=== PATIENT | female | born 1940 | race Caucasian/White ===

== ENCOUNTER 2020-05-20 12:16 | Outpatient (REF) | payer MEDICARE, SELFPAY ==
[2020-05-20 14:16] LABS: Hematocrit 42.6 % (37-47); Hemoglobin 14.2 g/dl (12.0-16.0); Mean Corpuscular HGB Conc 33.3 g/dl (31.0-35.0); Mean Corpuscular Hemoglobin 30.7 pg (27.0-33.0); Mean Corpuscular Volume 92.2 fL (80-98); Mean Platelet Volume 10.9 fL (9.4-12.3); Platelet Count 297 X10*3/uL (160-400); Red Blood Count 4.62 X10*6/uL (4.20-5.50); Red Cell Distribution Width 12.5 % (11.0-16.0); White Blood Count 8.2 X10*3/uL (4.8-10.8)
[2020-05-20 14:49] LABS: Anion Gap 12 (12-20); Blood Urea Nitrogen 14 mg/dL (9-16); Carbon Dioxide 28 mmol/L (22-29); Chloride 104 mmol/L (96-108); Estimated Glomerular Filt Rate > 60; Glucose Random 77 mg/dL (60-115); Potassium 4.2 mmol/l (3.3-5.1); Sodium 140 mmol/L (135-145)
== END 2020-05-20 12:17 | disposition home or self-care (01) ==
LOC: HO.LAB 12:16
PROVIDERS: PCP Internal Medicine; Referring Provider Internal Medicine; Visit Provider Internal Medicine Cardiovascular Disease
DX: I48.0 Paroxysmal atrial fibrillation (principal); I50.30 Unspecified diastolic (congestive) heart failure; Z95.0 Presence of cardiac pacemaker
CPT/HCPCS: 36415; 80048; 85027; 93005; 99212

== ENCOUNTER → 2020-11-06 13:13 | Outpatient (REF) | payer MEDICARE, SELFPAY ==
--- NOTE | 2020-11-06 13:16 | CA_ITS ---
Transthoracic Echocardiogram Patient (Last, First, Middle): Jessenia Pisano M Gender: Female Date of : 1940 Age: 80 Procedure Date: 11/06/2020 Procedure Type: Transthoracic Echocardiogram Location: OP Height: 165.1 cm Weight: 86.18 kg BSA: 1.94 m2 Heart Rate: bpm BP: 140 / 70 mmHg Radiologic Technologist Chief: EUGENIO Referring MD: Aman Avalos MD [employer] Concrete Ironworker: Aman Avalos MD Symptoms: I50.30 - Unspecified diastolic (congestive) heart failure Study Quality: Fair ECG Rhythm: Ventriculary paced rhythm Conclusions: - 1. Normal LV systolic function with impaired relaxation filling pattern 2. Mildly dilated left atrium 3. Fibrocalcific aortic valve changes noted with normal cardiac valvular Doppler 4. Normal RV systolic pressure 5. No pericardial effusion Findings Left Ventricle Normal left ventricular size, thickness, and systolic function. The visually estimated ejection fraction is between 55-60%. Regional wall motion abnormalities can not be excluded due to suboptimal endocardial definition. There is paradoxical septal motion consistent with a right ventricular pacemaker. Spectral Doppler is indicative of an impaired relaxation filling pattern. E/E prime ratio is between 8 and 15 consistent with indeterminate filling pressures. Right Ventricle Normal right ventricular cavity size and systolic function. There is a pacemaker wire seen in the right ventricle. Atria The left atrium is mildly dilated. The right atrium is normal in size. A pacemaker wire is identified in the right atrium. Aortic Valve There is mild calcification of the aortic valve. There is mild thickening of the aortic valve. There is no aortic valve stenosis. There is no aortic valve regurgitation. Mitral Valve There is mild anterior mitral leaflet thickening. There is mild mitral annular calcification. There is trace mitral valve regurgitation. There is no mitral valve stenosis. Pulmonic Valve The pulmonic valve was not well visualized. Tricuspid Valve Likely normal tricuspid valve structure and function. There is mild tricuspid valve regurgitation. The right ventricular systolic pressure is normal. The right ventricular systolic pressure is 27 mmHg. Normal right atrial pressure. There is no evidence of pulmonary hypertension. Great Vessels All visible segments of the aorta are normal in size. The pulmonary artery was not well visualized. Venous The inferior vena cava is normal in size and collapses greater than 50% with inspiration. Pericardium/Pleural There is no evidence of pericardial effusion. Prior Study Comparison Changes noted compared to prior study dated: 11/05/2019. RV systolic pressure is normal on this study Measurements 2D Linear Measurements IVSd: 1.19 0.6-0.9/0.6-1.0 cm LVIDd: 5.24 3.9-5.3/4.2-5.9 cm LVIDd Index: 2.70 2.4-3.2/2.2-3.1 cm/m2 LVIDs: 3.51 2.0-3.6 cm LVPWd: 0.94 0.7-1.1 cm Ao Root: 2.50 2.1-3.5 cm LA Diam: 3.80 2.7-3.8/3.0-4.0 cm LAIDs Index: 1.96 1.5-2.3 cm/m2 LV Mass: 267.03 67-162/88-224 g LV Mass Index: 137.65 43-95/49-115 g/m2 LVOT Diam: 1.90 3.0+(-)1.3 cm 2D Systolic Function EF 4C: 59.70 >55% Mitral Valve MV Pk E: 0.81 MV PK A: 0.90 MV Decel Time: 200.00 E/A: 0.90 E'Lateral: 5.98 E'Medial: 6.20 E/E' Med: 13.10 E/E' Lat: 13.60 PHT: 59.00 MVA PHT: 3.73 Decel Cidra: 4.08 Aortic Valve AoV Pk Emery: 1.78 AoV Mn Emery: 1.23 AoV VTI: 0.39 AoV Pk Grad: 13.00 Aov Mn Grad: 7.00 JERAMIE Cont.VTI: 2.22 LVOT LVOT Pk Emery: 1.29 LVOT Mn Emery: 0.92 LVOT VTI: 0.31 LVOT Pk Grad: 7.00 LVOT Mn Grad: 4.00 LVOT Diam: 1.90 LVOT Area: 2.84 Diastolic Function MV Pk E: 0.81 MV Pk A: 0.90 E/A: 0.90 E'Medial: 6.20 E/E' Med: 13.10 E' Laterial: 5.98 E/E' Lat: 13.60 Tricuspid Valve TR Pk Emery: 2.47 TR Pk Grad: 24.00 RA Press: 3.00 RVSP: 27.00 Great Vessels Aorta Ao Root-2D: 2.50 2.0-3.7 cm Ao Asc: 3.00 2.1-3.4 cm Updated in Other Vendor System with Status of Final Aman Avalos MD electronically signed on 11/07/2020 8:48:06 AM with status of Final
== END ==
LOC: HO.CARD 13:13
PROVIDERS: PCP Internal Medicine; Visit Provider Internal Medicine Cardiovascular Disease
DX: I48.0 Paroxysmal atrial fibrillation (principal); I11.0 Hypertensive heart disease with heart failure; I50.30 Unspecified diastolic (congestive) heart failure; Z95.0 Presence of cardiac pacemaker
CPT/HCPCS: 93306

== ENCOUNTER 2021-12-08 12:34 | Outpatient (REF) | payer MEDICARE, MEDICAID, SELFPAY ==
[2021-12-08 14:45] LABS: Hematocrit 41.9 % (37.0-47.0); Hemoglobin 13.8 g/dl (12.0-16.0); Mean Corpuscular HGB Conc 32.9 g/dl (31.0-35.0); Mean Corpuscular Hemoglobin 30.2 pg (27.0-33.0); Mean Corpuscular Volume 91.7 fL (80.0-98.0); Mean Platelet Volume 10.7 fL (9.4-12.3); Platelet Count 270 X10*3/uL (160-400); Red Blood Count 4.57 X10*6/uL (4.20-5.50); Red Cell Distribution Width 12.7 % (11.0-16.0); White Blood Count 8.3 X10*3/uL (4.8-10.8)
[2021-12-08 15:05] LABS: Anion Gap 14 (12-20); Blood Urea Nitrogen 14 mg/dL (9-16); Carbon Dioxide 24 mmol/L (22-29); Chloride 104 mmol/L (96-108); Estimated Glomerular Filt Rate > 60; Glucose Random 95 mg/dL (60-115); Potassium 4.4 mmol/L (3.3-5.1); Sodium 138 mmol/L (135-145)
== END 2021-12-08 12:35 | disposition home or self-care (01) ==
LOC: HO.LAB 12:34
PROVIDERS: PCP Internal Medicine; Referring Provider Internal Medicine; Visit Provider Internal Medicine Cardiovascular Disease
DX: I48.0 Paroxysmal atrial fibrillation (principal); R07.2 Precordial pain; I50.30 Unspecified diastolic (congestive) heart failure; Z95.0 Presence of cardiac pacemaker
CPT/HCPCS: 36415; 80048; 85027; 93005; 93280; 99212

== ENCOUNTER 2022-10-27 10:03 | Outpatient (REF) | payer MEDICARE, MEDICAID, SELFPAY ==
[2022-10-27 11:33] LABS: Mean Corpuscular HGB Conc 33.3 g/dl (31.0-35.0); Mean Corpuscular Hemoglobin 29.9 pg (27.0-33.0); Mean Corpuscular Volume 89.6 fL (80.0-98.0); Mean Platelet Volume 10.4 fL (9.4-12.3); Platelet Count 250 X10*3/uL (160-400); Red Blood Count 4.69 X10*6/uL (4.20-5.50); Red Cell Distribution Width 12.5 % (11.0-16.0); White Blood Count 7.5 X10*3/uL (4.8-10.8)
[2022-10-27 12:39] LABS: Anion Gap 13 (12-20); Blood Urea Nitrogen 11 mg/dL (9-16); Calcium 9.6 mg/dL (8.4-10.2); Carbon Dioxide 25 mmol/L (22-29); Chloride 105 mmol/L (96-108); Estimated Glomerular Filt Rate > 60; Glucose Random 117 mg/dL (60-115); Potassium 4.2 mmol/L (3.3-5.1); Sodium 139 mmol/L (135-145)
== END 2022-10-27 10:04 | disposition home or self-care (01) ==
LOC: HO.LAB 10:03
PROVIDERS: PCP Family Medicine; Referring Provider Family Medicine; Visit Provider Internal Medicine Cardiovascular Disease
DX: I48.0 Paroxysmal atrial fibrillation (principal); I50.30 Unspecified diastolic (congestive) heart failure; Z45.018 Encounter for adjustment and management of other part of cardiac pacemaker; Z79.899 Other long term (current) drug therapy
CPT/HCPCS: 36415; 80048; 85027; 93005; 93280; 99212

== ENCOUNTER → 2022-12-08 23:59 | Outpatient (BNV) | payer MEDICARE, MEDICAID, SELFPAY ==
--- NOTE | 2022-12-14 11:19 | MHC.OFFVIS ---
Intake Intake Visit Reasons: Remote Device Check- [facility] [place] Allergies Penicillins [PENICILLINS] Allergy (Mild, Verified 10/27/22 10:16) RASH PFS Medical History (HFpEF) heart failure with preserved ejection fraction Cardiac pacemaker in situ Complete heart block HTN (hypertension) Paroxysmal atrial fibrillation Surgical History Hx of angioplasty Hx of colonoscopy Hx of discectomy Hx of hysterectomy Family History Father CHF (congestive heart failure) CVD (cardiovascular disease) Mother CVD (cardiovascular disease) Stroke Alzheimer disease Son CVD (cardiovascular disease) HTN (hypertension) Social History Alcohol intake: never Patient Tobacco Use Status: Never used Tobacco Office Procedures Cardiac Device Check Cardiac Device Check Details: Remote pacemaker report generated 12/13/2022. Pacemaker function is adequate. Patient ventricularly pacer dependent [id number] Cardiac Device Interrogation, pacemaker Procedure code (CPT) selection complete Coding Level of Care Code Procedure Only Diagnoses CPT Codes Cardiac Device Check - Cardiac Device 12: [id number] Cardiac Device Interrogation, pacemaker ([id number])
== END ==
PROVIDERS: PCP Family Medicine; Visit Provider Internal Medicine Cardiovascular Disease
DX: I48.0 Paroxysmal atrial fibrillation (principal); Z95.0 Presence of cardiac pacemaker
CPT/HCPCS: 93294

== ENCOUNTER → 2023-01-10 12:19 | Outpatient (REF) | payer MEDICARE, MEDICAID, SELFPAY ==
--- NOTE | 2023-01-10 12:24 | CA_ITS ---
Transthoracic Echocardiogram Patient (Last, First, Middle): Jessenia Pisano M Gender: Female Date of : 1940 Age: 82 Procedure Date: 01/10/2023 Procedure Type: Transthoracic Echocardiogram Location: OP Height: 160.02 cm Weight: 88. kg BSA: 1.91 m2 Heart Rate: bpm BP: 134 / 75 mmHg Plant Associate: SRI Referring MD: Aman Avalos MD Symptoms: I50.30 - Unspecified diastolic (congestive) heart failure Study Quality: Adequate ECG Rhythm: Sinus Conclusions: - The left ventricular systolic function is normal. The calculated ejection fraction is 57% by biplane method. - There is mild calcification of the aortic valve. - There is mild mitral annular calcification. - No obvious valvular pathology seen on this study. Findings Left Ventricle Normal left ventricular cavity size. There is mildly increased left ventricular wall thickness. The left ventricular systolic function is normal. The calculated ejection fraction is 57% by biplane method. There is no evidence of regional wall motion abnormalities. Evidence suggests grade I (mild) diastolic dysfunction. Right Ventricle Normal right ventricular cavity size and systolic function. There is a pacemaker wire seen in the right ventricle. Atria Both atria are normal in size. Aortic Valve There is mild calcification of the aortic valve. There is no aortic valve regurgitation. No significant aortic stenosis. Mitral Valve There is mild mitral annular calcification. There is trace mitral valve regurgitation. There is no mitral valve stenosis. Pulmonic Valve The pulmonic valve is likely normal. Tricuspid Valve There is mild tricuspid valve regurgitation. There is no evidence of pulmonary hypertension. Great Vessels The asc aorta is normal in size. Venous The inferior vena cava is normal in size and collapses greater than 50% with inspiration. Pericardium/Pleural There is no evidence of pericardial effusion. Prior Study Comparison No significant change compared to prior study dated: 11/06/2020. Recommendations, Care & Conclusions No obvious valvular pathology seen on this study. Measurements 2D Linear Measurements IVSd: 1.05 0.6-0.9/0.6-1.0 cm LVIDd: 4.67 3.9-5.3/4.2-5.9 cm LVIDd Index: 2.45 2.4-3.2/2.2-3.1 cm/m2 LVIDs: 3.25 2.0-3.6 cm LVPWd: 1.04 0.7-1.1 cm LA Diam: 3.50 2.7-3.8/3.0-4.0 cm LAIDs Index: 1.83 1.5-2.3 cm/m2 LV Mass: 215.35 67-162/88-224 g LV Mass Index: 112.75 43-95/49-115 g/m2 LVOT Diam: 1.80 3.0+(-)1.3 cm 2D Systolic Function EF 4C: 58.10 >55% EF 2C: 59.00 >55% EF BiP: 56.80 >55% Mitral Valve MV Pk E: 0.82 MV PK A: 0.89 MV Decel Time: 243.00 E/A: 0.90 E'Lateral: 6.42 E'Medial: 4.57 E/E' Med: 17.90 E/E' Lat: 12.70 PHT: 71.00 MVA PHT: 3.10 Decel [place]: 3.37 Aortic Valve AoV Pk Emery: 1.70 AoV Mn Emery: 1.14 AoV VTI: 0.40 AoV Pk Grad: 12.00 Aov Mn Grad: 6.00 JERAMIE Cont.VTI: 1.80 LVOT LVOT Pk Emery: 1.12 LVOT Mn Emery: 0.79 LVOT VTI: 0.28 LVOT Pk Grad: 5.00 LVOT Mn Grad: 3.00 LVOT Diam: 1.80 LVOT Area: 2.54 Diastolic Function MV Pk E: 0.82 MV Pk A: 0.89 E/A: 0.90 E'Medial: 4.57 E/E' Med: 17.90 E' Laterial: 6.42 E/E' Lat: 12.70 Right Ventricle TAPSE (mm): 19.40 TVS' Emery: 9.36 Tricuspid Valve TR Pk Emery: 2.69 TR Pk Grad: 29.00 RA Press: 3.00 RVSP: 32.00 Great Vessels Aorta Sinus of Valsalva: 2.80 2.0-3.5 cm Ao Asc: 3.40 2.1-3.4 cm Updated in Other Vendor System with Status of Final Crispin Dawn MD electronically signed on 01/10/2023 3:59:05 PM with status of Final
== END ==
LOC: HO.CARD 12:19
PROVIDERS: PCP Family Medicine; Visit Provider Internal Medicine Cardiovascular Disease
DX: I50.30 Unspecified diastolic (congestive) heart failure (principal)
CPT/HCPCS: 93306

== ENCOUNTER → 2023-01-10 12:24 | Outpatient (BNV) | payer MEDICARE, MEDICAID, SELFPAY | PROVIDERS: PCP Family Medicine; Visit Provider Internal Medicine | DX: I34.81 Nonrheumatic mitral (valve) annulus calcification (principal); I35.8 Other nonrheumatic aortic valve disorders | CPT/HCPCS: 93306 ==

== ENCOUNTER → 2023-03-09 23:59 | Outpatient (BNV) | payer MEDICARE, MEDICAID, SELFPAY ==
--- NOTE | 2023-03-28 08:48 | MHC.OFFVIS ---
Intake Intake Visit Reasons: Remote Device Check- [facility] Allergies Penicillins [PENICILLINS] Allergy (Mild, Verified 10/27/22 10:16) RASH PFS Medical History (HFpEF) heart failure with preserved ejection fraction Cardiac pacemaker in situ Complete heart block HTN (hypertension) Paroxysmal atrial fibrillation Surgical History Hx of angioplasty Hx of colonoscopy Hx of discectomy Hx of hysterectomy Family History Father CHF (congestive heart failure) CVD (cardiovascular disease) Mother CVD (cardiovascular disease) Stroke Alzheimer disease Son CVD (cardiovascular disease) HTN (hypertension) Social History Alcohol intake: never Patient Tobacco Use Status: Never used Tobacco Office Procedures Cardiac Device Check Cardiac Device Check Details: Remote pacemaker report generated 03/09/2023. Pacemaker function is adequate. Patient ventricularly pacer dependent [id number] Cardiac Device Interrogation, pacemaker Procedure code (CPT) selection complete Coding Level of Care Code Procedure Only CPT Codes Cardiac Device Check - Cardiac Device 12: [id number] Cardiac Device Interrogation, pacemaker ([id number])
== END ==
PROVIDERS: PCP Family Medicine; Visit Provider Internal Medicine Cardiovascular Disease
DX: I44.2 Atrioventricular block, complete (principal); Z95.0 Presence of cardiac pacemaker
CPT/HCPCS: 93294

== ENCOUNTER → 2023-06-08 23:59 | Outpatient (BNV) | payer MEDICARE, MEDICAID, SELFPAY ==
--- NOTE | 2023-06-08 09:53 | MHC.OFFVIS ---
Intake Intake Visit Reasons: Remote Device Check- [facility] Allergies Penicillins [PENICILLINS] Allergy (Mild, Verified 10/27/22 10:16) RASH PFSH Medical History (HFpEF) heart failure with preserved ejection fraction Cardiac pacemaker in situ Complete heart block HTN (hypertension) Paroxysmal atrial fibrillation Surgical History Hx of angioplasty Hx of colonoscopy Hx of discectomy Hx of hysterectomy Family History Father CHF (congestive heart failure) CVD (cardiovascular disease) Mother CVD (cardiovascular disease) Stroke Alzheimer disease Son CVD (cardiovascular disease) HTN (hypertension) Social History Alcohol intake: never Patient Tobacco Use Status: Never used Tobacco Office Procedures Cardiac Device Check Cardiac Device Check Details: Remote pacemaker report generated 06/08/2022. Pacemaker function is adequate. Patient pacer dependent in the ventricle. No episodes of atrial fibrillation [id number] Cardiac Device Interrogation, pacemaker Procedure code (CPT) selection complete Assessment & Plan Assessment & Plan (1) Cardiac pacemaker in situ: Comment: Dual-chamber [place] Code(s): Z95.0 - Presence of cardiac pacemaker Plan: See above Coding Level of Care Code Procedure Only Diagnoses Cardiac pacemaker in situ Z95.0 CPT Codes Cardiac Device Check - Cardiac Device 12: [id number] Cardiac Device Interrogation, pacemaker ([id number])
== END ==
PROVIDERS: PCP Family Medicine; Visit Provider Internal Medicine Cardiovascular Disease
DX: I48.0 Paroxysmal atrial fibrillation (principal); Z95.0 Presence of cardiac pacemaker
CPT/HCPCS: 93294

== ENCOUNTER 2023-08-25 13:24 | Outpatient (AMB) | payer MEDICARE, MEDICAID, SELFPAY ==
[2023-08-25 13:49] VITALS: BP 136/80; PULSE 65; BMI 32.3
--- NOTE | 2023-08-25 13:49 | A.OFFVIS_ITS ---
Intake Vital Signs 08/25/23 13:49 Height 5 ft 5 in Weight 194 lb 0.108 oz BMI 32.3 BP 136/80 Blood Pressure Location Lt brachial Position Sitting Pulse 65 Intake Visit Reasons: RS/ 6 month f/u Intake Note: 6 month follow-up with [facility] check feeling good Staff Psychologist Required: No Allergies Penicillins [PENICILLINS] Allergy (Mild, Verified 10/27/22 10:16) RASH Medication List - Last Reconciled 08/25/23 by Aman Avalos MD atorvastatin 20 mg PO DAILY clotrimazole 1% appl topical BID diazepam 2.5 mg PO BID PRN diltiazem HCl ER (DILT-XR) 180 mg PO DAILY doxepin 10 mg PO BEDTIME flunisolide 2 sprays intranasal BID furosemide 40 mg PO BID gabapentin 300 mg PO BEDTIME hydrocortisone 2.5% appl topical 2XW ipratropium bromide 2 sprays intranasal Q12H ketoconazole 2% appl topical DAILY latanoprost 0.005% 1 drp ophthalmic (eye) BEDTIME lisinopril 5 mg PO DAILY paroxetine HCl 10 mg PO DAILY Pradaxa (dabigatran etexilate) 150 mg PO BID NS sodium chloride-aloe vera 1 ea intranasal BEDTIME sotalol (Sotalol AF) 80 mg PO BID tretinoin 0.025% appl topical BEDTIME HPI HPI Comments History of Present Illness Details Jessenia comes for follow-up for atrial fibrillation heart failure. She has been doing well from cardiac perspective. She was not able to make to the office visit recently due to ride issues. Now she has bought her own car. She is functional. She lives alone and is able to manage her day-to-day activity. Denies any prolonged palpitation irregular heartbeat. Denies any worsening heart failure symptoms with no symptoms of shortness of breath, orthopnea, PND, leg edema. No bleeding issues or neurologic events. No lightheadedness, syncope. [facility] Medical History (HFpEF) heart failure with preserved ejection fraction HTN (hypertension) Cardiac pacemaker in situ Paroxysmal atrial fibrillation Complete heart block Surgical History Hx of discectomy Hx of angioplasty Hx of hysterectomy Hx of colonoscopy Family History Father CHF (congestive heart failure) CVD (cardiovascular disease) Mother CVD (cardiovascular disease) Stroke Alzheimer disease Son CVD (cardiovascular disease) HTN (hypertension) Social History Alcohol intake: never Patient Tobacco Use Status: Never used Tobacco Review of Systems Const Denies chills, Denies fatigue, Denies fever(s), Denies frequent falls, Denies weakness, Denies weight gain and Denies weight loss ENT Denies dizziness Card Denies chest pain, Denies leg edema, Denies lightheadedness, Denies palpitations, Denies dyspnea, Denies dyspnea on exertion, Denies orthopnea and Denies other (loss of consciousness) Resp Denies cough, Denies dyspnea and Denies dyspnea on exertion GI Denies hematochezia and Denies change in stool character Musc Denies abnormal gait, Denies muscle weakness, Denies numbness, Denies radiating pain into limb and Denies tingling Neuro Denies abnormal gait, Denies dizziness, Denies frequent falls, Denies numbness, Denies tingling and Denies weakness Endo Denies fatigue and Denies palpitations Physical Exam Vital Signs: Last Vital Signs Pulse 65 08/25/23 13:49 BP 136/80 08/25/23 13:49 BMI result Body Mass Index 32.3 Const General: cooperative, comfortable, no acute distress, alert and awake Nutritional Appearance: obese Orientation/consciousness: patient oriented x3 Limitations: no limitations HEENT Head: Yes normal to inspection, Yes normocephalic and Yes atraumatic Eyes General: appearance normal, both eyes and all related structures Neck Neck: Yes trachea midline, Yes supple and Yes no JVD Chest Chest palpation & inspection: normal inspection of the chest Resp Effort & Inspection: normal respiratory effort Auscultation: clear to auscultation bilaterally Cardio Jugular venous distension: no JVD Palpation: normal PMI Rate: regular rate Rhythm: regular rhythm Heart sounds: S1 normal heart sound present, S2 normal heart sound present and Other heart sounds present (S4) GI Auscultation: normal bowel sounds Skin General skin exam: no rashes or lesions noted and ecchymosis Neuro General: patient oriented x3 and no focal motor deficits Extrem General: Yes no clubbing, cyanosis or edema Psych Appearance: grossly normal Office Procedures Cardiac Device Check Cardiac Device Check Details: Dual-chamber [place] pacemaker in place. Programmed in DDDR at 60 beats per minute. Battery life is at about 2 and half years. No episodes of atrial fibrillation noted. Atrial ventricular capture thresholds excellent. Atrial ventricular sensing is excellent. Pacing lead impedance is stable. [id number] Cardiac Device Check, pacemaker dual lead Procedure code (CPT) selection complete EKG Details: EKG shows atrially sensed, ventricularly paced rhythm [id number], Complete Assessment & Plan Assessment & Plan (1) (HFpEF) heart failure with preserved ejection fraction: Code(s): I50.30 - Unspecified diastolic (congestive) heart failure Plan: Heart failure preserved ejection fraction, clinically euvolemic and well compensated. Has done very well with rhythm control approach and current diuretic dose. No hospitalization the last many years. Continue the same treatment regimen. Daily weight monitoring avoidance of salt loading was discussed. Continue pursue rhythm control approach. Follow-up echocardiogram 6 months time. (2) Paroxysmal atrial fibrillation: Comment: Has done extremely well with rhythm control approach. Currently suppressed on sotalol therapy Code(s): I48.0 - Paroxysmal atrial fibrillation Plan: Paroxysmal atrial fibrillation has done well with rhythm control approach. Continue current sotalol therapy. Importance of rhythm control approach was discussed with her. Avoidance of stimulants was discussed. Continue full oral anticoagulation, currently on dabigatran. Semi annual renal function test is recommended. Stress mitigation strategies to be pursued. (3) Cardiac pacemaker in situ: Comment: Dual-chamber [place] Code(s): Z95.0 - Presence of cardiac pacemaker Plan: Cardiac pacemaker in-situ for complete heart block. Pacemaker is working well. Reprogrammed for adequate function. Will follow remotely 3 months and follow up in the clinic in 6 months time. Follow up in the clinic in 6 months time, sooner p.r.n.. Thank you for allowing me to partake in her care Orders: Orders Basic Metabolic Panel Today I48.0 - Paroxysmal atrial fibrillation Complete Blood Count no Diff Today I48.0 - Paroxysmal atrial fibrillation CA echo transthoracic complete 6 Months I50.30 - Unspecified diastolic (congestive) heart failure Coding Level of Care Code Est Pt Level 4 (09869) Diagnoses (HFpEF) heart failure with preserved ejection fraction I50.30 Paroxysmal atrial fibrillation I48.0 Cardiac pacemaker in situ Z95.0 CPT Codes Cardiac Device Check - Cardiac Device 2: [id number] Cardiac Device Check, pacemaker dual lead ([id number]) EKG - CPT: 66037-[id number], Complete ([id number])
== END 2023-08-25 14:24 | disposition home or self-care (01) ==
PROVIDERS: PCP Family Medicine; Visit Provider Internal Medicine Cardiovascular Disease
DX: I50.30 Unspecified diastolic (congestive) heart failure (principal); I48.0 Paroxysmal atrial fibrillation; Z95.0 Presence of cardiac pacemaker
CPT/HCPCS: 93010; 93280; 99214

== ENCOUNTER 2023-08-25 13:24 | Outpatient (REF) | payer MEDICARE, MEDICAID, SELFPAY ==
[2023-08-25 15:21] LABS: Hematocrit 42.5 % (37.0-47.0); Hemoglobin 14.4 g/dl (12.0-16.0); Mean Corpuscular HGB Conc 33.9 g/dl (31.0-35.0); Mean Corpuscular Hemoglobin 30.5 pg (27.0-33.0); Mean Platelet Volume 10.9 fL (9.4-12.3); Platelet Count 271 X10*3/uL (160-400); Red Blood Count 4.72 X10*6/uL (4.20-5.50); Red Cell Distribution Width 12.3 % (11.0-16.0); White Blood Count 8.2 X10*3/uL (4.8-10.8)
[2023-08-25 15:48] LABS: Anion Gap 14 (12-20); Blood Urea Nitrogen 13 mg/dL (9-16); Calcium 9.7 mg/dL (8.4-10.2); Carbon Dioxide 25 mmol/L (22-29); Chloride 105 mmol/L (96-108); Estimated Glomerular Filt Rate > 60; Glucose Random 102 mg/dL (60-115); Potassium 3.9 mmol/L (3.3-5.1); Sodium 140 mmol/L (135-145)
== END 2023-08-25 13:25 | disposition home or self-care (01) ==
LOC: HO.LAB 13:24
PROVIDERS: PCP Family Medicine; Visit Provider Internal Medicine Cardiovascular Disease
DX: I48.0 Paroxysmal atrial fibrillation (principal); I50.30 Unspecified diastolic (congestive) heart failure; Z95.0 Presence of cardiac pacemaker; Z79.899 Other long term (current) drug therapy
CPT/HCPCS: 36415; 80048; 85027; 93005; 93280; 99212

== ENCOUNTER → 2023-09-07 23:59 | Outpatient (BNV) | payer MEDICARE, MEDICAID, SELFPAY ==
--- NOTE | 2023-09-08 14:33 | MHC.OFFVIS ---
Intake Intake Visit Reasons: Remote device check- [facility] Allergies Penicillins [PENICILLINS] Allergy (Mild, Verified 10/27/22 10:16) RASH PFS Medical History (HFpEF) heart failure with preserved ejection fraction HTN (hypertension) Cardiac pacemaker in situ Paroxysmal atrial fibrillation Complete heart block Surgical History Hx of discectomy Hx of angioplasty Hx of hysterectomy Hx of colonoscopy Family History Father CHF (congestive heart failure) CVD (cardiovascular disease) Mother CVD (cardiovascular disease) Stroke Alzheimer disease Son CVD (cardiovascular disease) HTN (hypertension) Social History Alcohol intake: never Patient Tobacco Use Status: Never used Tobacco Office Procedures Cardiac Device Check Cardiac Device Check Details: Remote pacemaker report generated 09/07/2023. Pacemaker function is adequate. Ventricularly pacer dependent. No episodes of atrial fibrillation [id number] Cardiac Device Interrogation, pacemaker Procedure code (CPT) selection complete Assessment & Plan Assessment & Plan (1) Cardiac pacemaker in situ: Comment: Dual-chamber [place] Code(s): Z95.0 - Presence of cardiac pacemaker Plan: See above Coding Level of Care Code Procedure Only Diagnoses Cardiac pacemaker in situ Z95.0 CPT Codes Cardiac Device Check - Cardiac Device 12: [id number] Cardiac Device Interrogation, pacemaker ([id number])
== END ==
PROVIDERS: PCP Family Medicine; Visit Provider Internal Medicine Cardiovascular Disease
DX: Z45.018 Encounter for adjustment and management of other part of cardiac pacemaker (principal)
CPT/HCPCS: 93294

== ENCOUNTER → 2023-12-07 23:59 | Outpatient (BNV) | payer MEDICARE, MEDICAID, SELFPAY ==
--- NOTE | 2023-12-12 14:24 | A.OFFVIS_ITS ---
Intake Visit Reasons: Remote Device Check- [facility] Allergies Penicillins [PENICILLINS] Allergy (Mild, Verified 10/27/22 10:16) RASH PFSH Medical History (HFpEF) heart failure with preserved ejection fraction HTN (hypertension) Cardiac pacemaker in situ Paroxysmal atrial fibrillation Complete heart block Surgical History Hx of discectomy Hx of angioplasty Hx of hysterectomy Hx of colonoscopy Family History Father CHF (congestive heart failure) CVD (cardiovascular disease) Mother CVD (cardiovascular disease) Stroke Alzheimer disease Son CVD (cardiovascular disease) HTN (hypertension) Social History Alcohol intake: never Patient Tobacco Use Status: Never used Tobacco Office Procedures Cardiac Device Check Cardiac Device Check Details: Remote pacemaker report generated 12/07/2023. Pacemaker function is adequate. Ventricularly pacer dependent [id number] Cardiac Device Interrogation, pacemaker Procedure code (CPT) selection complete Assessment & Plan Assessment & Plan (1) Cardiac pacemaker in situ: Comment: Dual-chamber [place] Code(s): Z95.0 - Presence of cardiac pacemaker Category: Medical Plan: See above Coding Level of Care Code Procedure Only Diagnoses Cardiac pacemaker in situ Z95.0 CPT Codes Cardiac Device Check - Cardiac Device 12: [id number] Cardiac Device Interr ogation, pacemaker ([id number])
== END ==
PROVIDERS: PCP Family Medicine; Visit Provider Internal Medicine Cardiovascular Disease
DX: Z45.018 Encounter for adjustment and management of other part of cardiac pacemaker (principal)
CPT/HCPCS: 93294

== ENCOUNTER 2023-12-26 14:10 | Outpatient (AMB) | payer MEDICARE, MEDICAID, SELFPAY ==
[2023-12-26 14:39] VITALS: BP 161/88; PULSE 72; BMI 32.9
--- NOTE | 2023-12-26 14:39 | MHC.OFFVIS ---
Vital Signs 12/26/23 14:39 Height 5 ft 5 in Weight 197 lb 8.547 oz BMI 32.9 BP 161/88 H Blood Pressure Location Lt brachial Position Sitting Pulse 72 Intake Visit Reasons: positive cologuard Intake Note: Patient in office today for positive cologuard. CC: Patient states that last colonoscopy was done with Dr. Orellana. Patient denies having any GI symptoms. 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 female here today for pre colonoscopy screening.? Patient was sent to us by her PCP.? Last colonoscopy in [address] Orellana that showed 1 hyperplastic polyp. Positive Cologuard in November of 2023. ? Patient denies any gastrointestinal symptoms in the past or at present.? Denies any personal or family history of gastrointestinal disease, colon polyps, or CRC.? Denies history of difficulty with sedation or anesthesia in the past.? Negative for history of sleep apnea.? Denies any history of cardiac, renal, pulmonary, or hepatic disease.?? No history of infectious? diseases like hepatitis A, B, C, HIV or tuberculosis.? Patient is on Pradaxa. Patient will have an appointment with her rotor casting machine setup operator in February, will ask for risk stratification. Patient would like to have her procedure done in the wintertime. Patient is having hard time moving around in his going to physical therapy now. ON LICENSE OF [facility] Medical History (HFpEF) heart failure with preserved ejection fraction HTN (hypertension) Cardiac pacemaker in situ Paroxysmal atrial fibrillation Complete heart block Surgical History Hx of discectomy Hx of angioplasty Hx of hysterectomy Hx of colonoscopy Family History Father CHF (congestive heart failure) CVD (cardiovascular disease) Mother CVD (cardiovascular disease) Stroke Alzheimer disease Son CVD (cardiovascular disease) HTN (hypertension) Social History Alcohol intake: never Patient Tobacco Use Status: Never used Tobacco Review of Systems Const Denies weight gain and Denies weight loss ENT Reports no additional complaints, Denies dysphagia and Denies odynophagia Card Reports no additional complaints Resp Reports no additional complaints GI Denies abdominal pain, Denies belching, Denies melena, Denies bloating, Denies change in bowel habits, Denies dysphagia, Denies excessive flatus, Denies dyspepsia, Denies heartburn, Denies diarrhea, Denies loose stools, Denies nausea, Denies odynophagia and Denies vomiting Musc Reports no additional complaints Neuro Reports no additional complaints Psych Reports no additional complaints Endo Reports no additional complaints Physical Exam Vital Signs: Last Vital Signs Pulse 72 12/26/23 14:39 BP 161/88 H 12/26/23 14:39 BMI result Body Mass Index 32.9 Const General: healthy appearing and no acute distress Nutritional Appearance: obese Orientation/consciousness: patient oriented x3 Resp Effort & Inspection: normal respiratory effort, able to speak in complete sentences, no tracheal deviation and symmetric chest movement Auscultation: clear to auscultation bilaterally Cardio Rate: regular rate GI Inspection: Yes normal to inspection, No distended and Yes obesity Palpation (GI): Soft to palpation, not firm, nontender and No hepatosplenomegaly present Auscultation: normal bowel sounds General: Yes no CVA tenderness Back/Spine/Pelvis Back: no CVA tenderness Skin General skin exam: elasticity normal, turgor normal and dry skin Neuro General: patient oriented x3 Psych Appearance: grossly normal Mental Status: mental status grossly normal Assessment & Plan Assessment & Plan (1) Positive colorectal cancer screening using Cologuard test: Code(s): R19.5 - Other fecal abnormalities Plan Patient denies any GI, cardiac or respiratory symptoms.? Has appointment with rotor casting machine setup operator in February. Message sent to hearing officer to add clearance to her appointment before going for procedure. Patient is on Pradaxa for PAF. Denies any issues with anesthesia in the past.? ? No history infectious diseases in the past or present.? ? No family or personal history of colon cancer or polyps.? Positive Cologuard was what was in November of 2023. Patient denies melena, hematochezia, unintentional weight loss or ribbon like stools.? I will see patient in 3 months to go over the prep and making sure that the patient is cleared to go for procedure. Patient is hesitant about going for the procedure, reports problems moving around and hoping she will be able to do the prep. We will most likely due Mag citrate prep with Dulcolax. Patient is agreeable to this plan and verbalizes understanding of instructions. She was given the opportunity to ask questions and all questions answered. Thank you for allowing me to participate in her care Coding Level of Care Code New Pt Level 3 (91271) Diagnoses Positive colorectal cancer screening using Cologuard test R19.5 Time Spent (min) 40 Comment 30 minutes spent with patient and additional 10 minutes spent reviewing her records
== END 2023-12-26 15:19 | disposition home or self-care (01) ==
PROVIDERS: PCP Family Medicine; Visit Provider Nurse Practitioner Family
DX: R19.5 Other fecal abnormalities (principal)
CPT/HCPCS: 99203

== ENCOUNTER → 2023-12-26 14:10 | Outpatient (BNVA) | payer MEDICARE, MEDICAID, SELFPAY | PROVIDERS: PCP Family Medicine; Visit Provider Nurse Practitioner Family | DX: R19.5 Other fecal abnormalities (principal) | CPT/HCPCS: 99202 ==

== ENCOUNTER → 2024-02-13 13:41 | Outpatient (REF) | payer MEDICARE, MEDICAID, SELFPAY ==
--- NOTE | 2024-02-13 13:54 | CA_ITS ---
Transthoracic Echocardiogram Patient (Last, First, Middle): Jessenia Pisano M Gender: Female Date of : 1940 Age: 83 Procedure Date: 02/13/2024 Procedure Type: Transthoracic Echocardiogram Location: OP Height: 160. 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 The calculated ejection fraction is 60% by biplane method. - There is mild tricuspid valve regurgitation. - Mild pulmonary hypertension is present. Findings Left Ventricle Normal left ventricular cavity size. There is normal left ventricular wall thickness. The left ventricular systolic function is normal. The calculated ejection fraction is 60% by biplane method. There is no evidence of regional wall motion abnormalities. Evidence suggests grade I (mild) diastolic dysfunction. Right Ventricle Normal right ventricular cavity size and systolic function. There is a pacemaker wire seen in the right ventricle. Atria Both atria are normal in size. Aortic Valve There is mild calcification of the aortic valve. There is no aortic valve stenosis. There is no aortic valve regurgitation. Mitral Valve There is mild mitral annular calcification. There is trace mitral valve regurgitation. There is no mitral valve stenosis. Pulmonic Valve The pulmonic valve was not well visualized. Tricuspid Valve There is mild tricuspid valve regurgitation. Mild pulmonary hypertension is present. Great Vessels The asc aorta is normal in size. Venous The inferior vena cava is normal in size and collapses greater than 50% with inspiration. Pericardium/Pleural There is no evidence of pericardial effusion. Prior Study Comparison Changes noted compared to prior study dated: 01/10/2023. slightly higher RVSP; can also be technical. Measurements 2D Linear Measurements IVSd: 0.96 0.6-0.9/0.6-1.0 cm LVIDd: 4.30 3.9-5.3/4.2-5.9 cm LVIDd Index: 2.25 2.4-3.2/2.2-3.1 cm/m2 LVIDs: 2.86 2.0-3.6 cm LVPWd: 0.95 0.7-1.1 cm LA Diam: 3.40 2.7-3.8/3.0-4.0 cm LAIDs Index: 1.78 1.5-2.3 cm/m2 LV Mass: 166.13 67-162/88-224 g LV Mass Index: 86.98 43-95/49-115 g/m2 LVOT Diam: 1.80 3.0+(-)1.3 cm 2D Systolic Function EF 4C: 58.70 >55% EF 2C: 61.20 >55% EF BiP: 60.10 >55% Mitral Valve MV Pk E: 1.03 MV PK A: 1.09 MV Decel Time: 209.00 E/A: 0.90 E'Lateral: 6.96 E'Medial: 5.44 E/E' Med: 18.90 E/E' Lat: 14.80 PHT: 61.00 MVA PHT: 3.61 Decel Green: 4.93 Aortic Valve AoV Pk Emery: 1.39 AoV Mn Emery: 0.92 AoV VTI: 0.32 AoV Pk Grad: 8.00 Aov Mn Grad: 4.00 JERAMIE Cont.VTI: 2.25 LVOT LVOT Pk Emery: 1.14 LVOT Mn Emery: 0.83 LVOT VTI: 0.28 LVOT Pk Grad: 5.00 LVOT Mn Grad: 3.00 LVOT Diam: 1.80 LVOT Area: 2.54 Diastolic Function MV Pk E: 1.03 MV Pk A: 1.09 E/A: 0.90 E'Medial: 5.44 E/E' Med: 18.90 E' Laterial: 6.96 E/E' Lat: 14.80 Right Ventricle TAPSE (mm): 22.20 TVS' Emery: 10.00 Tricuspid Valve TR Pk Emery: 2.99 TR Pk Grad: 36.00 RA Press: 3.00 RVSP: 39.00 Great Vessels Aorta Sinus of Valsalva: 3.10 2.0-3.5 cm Ao Asc: 2.70 2.1-3.4 cm Pulmonary Valve PV Pk Emery: 0.94 Peak PV Grad: 4.00 Updated in Other Vendor System with Status of Final Crispin Dawn MD electronically signed on 02/14/2024 4:02:56 PM with status of Final
== END ==
LOC: HO.CARD 13:41
PROVIDERS: PCP Family Medicine; Visit Provider Internal Medicine Cardiovascular Disease
DX: I50.30 Unspecified diastolic (congestive) heart failure (principal)
CPT/HCPCS: 93306

== ENCOUNTER → 2024-02-13 13:54 | Outpatient (BNV) | payer MEDICARE, MEDICAID, SELFPAY | PROVIDERS: PCP Family Medicine; Visit Provider Internal Medicine | DX: I36.1 Nonrheumatic tricuspid (valve) insufficiency (principal); I35.8 Other nonrheumatic aortic valve disorders; I34.81 Nonrheumatic mitral (valve) annulus calcification | CPT/HCPCS: 93306 ==

== ENCOUNTER 2024-02-27 12:38 | Outpatient (REF) | payer MEDICARE, MEDICAID, SELFPAY ==
[2024-02-27 13:47] LABS: Hematocrit 43.2 % (37.0-47.0); Hemoglobin 14.8 g/dl (12.0-16.0); Mean Corpuscular HGB Conc 34.3 g/dl (31.0-35.0); Mean Corpuscular Hemoglobin 31.2 pg (27.0-33.0); Mean Corpuscular Volume 90.9 fL (80.0-98.0); Mean Platelet Volume 10.5 fL (9.4-12.3); Platelet Count 266 X10*3/uL (160-400); Red Blood Count 4.75 X10*6/uL (4.20-5.50); Red Cell Distribution Width 12.4 % (11.0-16.0); White Blood Count 8.5 X10*3/uL (4.8-10.8)
[2024-02-27 14:21] LABS: B Type Natriuretic Peptide 93 pg/mL (<100)
[2024-02-27 14:25] LABS: Anion Gap 12 (12-20); Blood Urea Nitrogen 13 mg/dL (9-16); Calcium 10.2 mg/dL (8.4-10.2); Carbon Dioxide 27 mmol/L (22-29); Chloride 106 mmol/L (96-108); Estimated Glomerular Filt Rate > 60; Glucose Random 112 mg/dL (60-115); Potassium 4.1 mmol/L (3.3-5.1); Sodium 141 mmol/L (135-145)
== END 2024-02-27 12:39 | disposition home or self-care (01) ==
LOC: HO.LAB 12:38
PROVIDERS: PCP Family Medicine; Visit Provider Internal Medicine Cardiovascular Disease
DX: Z01.810 Encounter for preprocedural cardiovascular examination (principal); I48.0 Paroxysmal atrial fibrillation; I50.30 Unspecified diastolic (congestive) heart failure; I25.10 Atherosclerotic heart disease of native coronary artery without angina pectoris; Z95.0 Presence of cardiac pacemaker
CPT/HCPCS: 36415; 80048; 83880; 85027; 93005; 93280; 99212

== ENCOUNTER 2024-02-27 12:38 | Outpatient (AMB) | payer MEDICARE, MEDICAID, SELFPAY ==
--- NOTE | 2024-02-27 12:40 | MHC.OFFVIS ---
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: No Allergies Penicillins [PENICILLINS] Allergy (Mild, Verified 12/26/23 14:55) RASH house dust Allergy (Unknown, Verified 12/26/23 14:55) Unknown mold Allergy (Unknown, Verified 12/26/23 14:55) Unknown lactose Adverse Reaction (Unknown, Verified 12/26/23 14:55) Unknown Medication List - Last Reconciled 02/27/24 by Aman Avalos MD acetaminophen ER 650 mg PO Q8H PRN atorvastatin 20 mg PO DAILY cholecalciferol (vitamin D3) (Vitamin D3) 50 mcg PO DAILY clotrimazole 1% appl topical BID diazepam 2.5 mg PO BID PRN diltiazem HCl ER (DILT-XR) 180 mg PO DAILY doxepin 10 mg PO BEDTIME furosemide 40 mg PO BID gabapentin 300 mg PO BEDTIME PRN hydrocortisone 2.5% appl topical 2XW ipratropium bromide 2 sprays intranasal Q12H ketoconazole 2% appl topical DAILY latanoprost 0.005% 1 drp ophthalmic (eye) BEDTIME lisinopril 5 mg PO DAILY methylcellulose (laxative) ea PO paroxetine HCl 10 mg PO DAILY Pradaxa (dabigatran etexilate) 150 mg PO BID NS sodium chloride-aloe vera 1 ea intranasal BEDTIME sodium chloride-aloe vera ([place] Saline Gel nasal spray) 1 spray intranasal BEDTIME PRN sotalol (Sotalol AF) 80 mg PO BID tretinoin 0.025% appl topical BEDTIME HPI Comments Details: Jessenia comes for follow-up. She has been noticing increasing shortness of breath more recently. She said on 1 warm day she was working outside in the garden she got more short of breath. She denies any orthopnea, PND, leg edema. No abdominal distension. No prolonged episodes of palpitations. No lightheadedness, syncope. Taking all her medications. No exertional chest pain. No breathing issues or neurologic events. Plan to undergo colonoscopy in June. Echocardiogram done recently showed preserved LV ejection fraction with mild pulmonary hypertension. [facility] Medical History (HFpEF) heart failure with preserved ejection fraction HTN (hypertension) Cardiac pacemaker in situ Paroxysmal atrial fibrillation Complete heart block Surgical History Hx of discectomy Hx of angioplasty Hx of hysterectomy Hx of colonoscopy Family History Father CHF (congestive heart failure) CVD (cardiovascular disease) Mother CVD (cardiovascular disease) Stroke Alzheimer disease Son CVD (cardiovascular disease) HTN (hypertension) Social History Alcohol intake: never Patient Tobacco Use Status: Never used Tobacco Review of Systems Const Denies chills, Denies fatigue, Denies fever(s), Denies frequent falls, Denies weakness, Denies weight gain and Denies weight loss ENT Denies dizziness Card Denies chest pain, Denies leg edema, Denies lightheadedness, Denies palpitations, Denies dyspnea, Denies dyspnea on exertion, Denies orthopnea and Denies other (loss of consciousness) Resp Denies cough, Denies dyspnea and Denies dyspnea on exertion GI Denies hematochezia and Denies change in stool character Musc Denies abnormal gait, Denies muscle weakness, Denies numbness, Denies radiating pain into limb and Denies tingling Neuro Denies abnormal gait, Denies dizziness, Denies frequent falls, Denies numbness, Denies tingling and Denies weakness Endo Denies fatigue and Denies palpitations Physical Exam Vital Signs: Last Vital Signs Pulse 64 02/27/24 12:41 BP 128/76 02/27/24 12:41 BMI result Body Mass Index 32.3 Const General: cooperative, comfortable, no acute distress, alert and awake Nutritional Appearance: obese Orientation/consciousness: patient oriented x3 Limitations: no limitations HEENT Head: Yes normal to inspection, Yes normocephalic and Yes atraumatic Eyes General: appearance normal, both eyes and all related structures Neck Neck: Yes trachea midline, Yes supple and Yes no JVD Chest Chest palpation & inspection: normal inspection of the chest Resp Effort & Inspection: normal respiratory effort Auscultation: clear to auscultation bilaterally Cardio Jugular venous distension: no JVD Palpation: normal PMI Rate: regular rate Rhythm: regular rhythm Heart sounds: S1 normal heart sound present, S2 normal heart sound present and Other heart sounds present (S4) GI Auscultation: normal bowel sounds Skin General skin exam: no rashes or lesions noted and ecchymosis Neuro General: patient oriented x3 and no focal motor deficits Extrem General: Yes no clubbing, cyanosis or edema Psych Appearance: grossly normal Office Procedures Cardiac Device Check Cardiac Device Check Details: Dual-chamber [place] pacemaker in place. Programmed in DDDR at 60 beats per minute. Ventricular pacing 100% of time. No episodes of atrial fibrillation noted. Battery life is 3.8 months. Atrial capture thresholds excellent. Ventricular capture thresholds excellent. Atrial sensing is excellent. Pacing lead impedance is stable. [id number] Cardiac Device Check, pacemaker dual lead Procedure code (CPT) selection complete EKG Details: EKG shows atrially sensed, ventricularly paced rhythm [id number], Complete Assessment & Plan Assessment & Plan (1) (HFpEF) heart failure with preserved ejection fraction: Code(s): I50.30 - Unspecified diastolic (congestive) heart failure Category: Medical Plan: Heart failure preserved ejection fraction with increased symptoms of shortness of breath. Recent echocardiogram does not show any change in LV ejection fraction or worsening filling pressures. Will check BNP. Continue current regimen. She has done well with rhythm control approach will continue pursue the same. Continue current diuretic dose for now. May need to change her therapy if there is worsening BNP level may add Jardiance to her regimen. Will check myocardial perfusion imaging to evaluate for myocardial ischemia as symptom of shortness of breath could be related to obstructive CAD. (2) Paroxysmal atrial fibrillation: Comment: Has done extremely well with rhythm control approach. Currently suppressed on sotalol therapy Code(s): I48.0 - Paroxysmal atrial fibrillation Category: Medical Plan: Paroxysmal atrial fibrillation, highly symptomatic. Has done extremely well with rhythm control approach over many years. Continue rhythm control approach. Continue current sotalol therapy. BNP and EKG every 6 months as required. This was discussed with her. Continue full oral anticoagulation, currently on Pradaxa 150 mg b.i.d.. Semi annual renal function test should be pursued as well. (3) Cardiac pacemaker in situ: Comment: Dual-chamber [place] Code(s): Z95.0 - Presence of cardiac pacemaker Category: Medical Plan: Cardiac pacemaker in-situ for complete heart block. Pacemaker is working well. Reprogrammed for adequate functioning. No significant change in LV ejection fraction with persistent ventricular pacing. Continue current medical therapy. Follow up in the clinic in 3 months time, sooner p.r.n.. Thank you for allowing me to partake in her care (4) Preoperative cardiovascular examination: Code(s): Z01.810 - Encounter for preprocedural cardiovascular examination Plan: Preoperative cardiovascular risk stratification prior to colonoscopy. This is low risk procedure. Patient is optimized to undergo the procedure with low to intermediate risk for perioperative cardiovascular morbidity mortality. Continue all medications except for Pradaxa which can be held 2-3 days prior to the procedure and resume as soon as possible after the procedure. Continue all the medications. Lasix can also be withheld for NPO status and bowel prep. Will follow up Orders: Orders Complete Blood Count no Diff Today I50.30 - Unspecified diastolic (congestive) heart failure B Type Natriuretic Peptide Today I50.30 - Unspecified diastolic (congestive) heart failure Basic Metabolic Panel Today I50.30 - Unspecified diastolic (congestive) heart failure Coding Level of Care Code Est Pt Level 4 (74639) Diagnoses (HFpEF) heart failure with preserved ejection fraction I50.30 Paroxysmal atrial fibrillation I48.0 Cardiac pacemaker in situ Z95.0 Preoperative cardiovascular examination Z01.810 CPT Codes Cardiac Device Check - Cardiac Device 2: [id number] Cardiac Device Check, pacemaker dual lead ([id number]) EKG - CPT: 21687-[id number], Complete ([id number])
[2024-02-27 12:41] VITALS: BP 128/76; PULSE 64; BMI 32.3
== END 2024-02-27 13:11 | disposition home or self-care (01) ==
PROVIDERS: PCP Family Medicine; Visit Provider Internal Medicine Cardiovascular Disease
DX: I50.30 Unspecified diastolic (congestive) heart failure (principal); I48.0 Paroxysmal atrial fibrillation; Z95.0 Presence of cardiac pacemaker; Z01.810 Encounter for preprocedural cardiovascular examination
CPT/HCPCS: 93010; 93280; 99214

== ENCOUNTER → 2024-03-07 23:59 | Outpatient (BNV) | payer MEDICARE, MEDICAID, SELFPAY ==
--- NOTE | 2024-03-12 14:29 | A.OFFVIS_ITS ---
Intake Visit Reasons: Remote Device Check- [facility] Allergies Penicillins [PENICILLINS] Allergy (Mild, Verified 12/26/23 14:55) RASH house dust Allergy (Unknown, Verified 12/26/23 14:55) Unknown mold Allergy (Unknown, Verified 12/26/23 14:55) Unknown lactose Adverse Reaction (Unknown, Verified 12/26/23 14:55) Unknown PFSH Medical History (HFpEF) heart failure with preserved ejection fraction HTN (hypertension) Cardiac pacemaker in situ Paroxysmal atrial fibrillation Complete heart block Surgical History Hx of discectomy Hx of angioplasty Hx of hysterectomy Hx of colonoscopy Family History Father CHF (congestive heart failure) CVD (cardiovascular disease) Mother CVD (cardiovascular disease) Stroke Alzheimer disease Son CVD (cardiovascular disease) HTN (hypertension) Social History Alcohol intake: never Patient Tobacco Use Status: Never used Tobacco Office Procedures Cardiac Device Check Cardiac Device Check Details: Remote pacemaker report generated 03/08/2024. Pacemaker function is adequate. Battery close to SVETLANA. Will follow monthly [id number] Cardiac Device Interrogation, pacemaker Procedure code (CPT) selection complete Assessment & Plan Assessment & Plan (1) Cardiac pacemaker in situ: Comment: Dual-chamber [place] Code(s): Z95.0 - Presence of cardiac pacemaker Category: Medical Plan: See above Coding Level of Care Code Procedure Only Diagnoses Cardiac pacemaker in situ Z95.0 CPT Codes Cardiac Device Check - Cardiac Device 12: [id number] Cardiac Device Int errogation, pacemaker ([id number])
== END ==
PROVIDERS: PCP Family Medicine; Visit Provider Internal Medicine Cardiovascular Disease
DX: Z45.018 Encounter for adjustment and management of other part of cardiac pacemaker (principal)
CPT/HCPCS: 93294

== ENCOUNTER → 2024-05-07 23:59 | Outpatient (BNV) | payer MEDICARE, MEDICAID, SELFPAY ==
--- NOTE | 2024-05-15 16:28 | MHC.OFFVIS ---
Intake Visit Reasons: Remote device check- [place] Allergies Penicillins [PENICILLINS] Allergy (Mild, Verified 12/26/23 14:55) RASH house dust Allergy (Unknown, Verified 12/26/23 14:55) Unknown mold Allergy (Unknown, Verified 12/26/23 14:55) Unknown lactose Adverse Reaction (Unknown, Verified 12/26/23 14:55) Unknown PFSH Medical History (HFpEF) heart failure with preserved ejection fraction HTN (hypertension) Cardiac pacemaker in situ Paroxysmal atrial fibrillation Complete heart block Surgical History Hx of discectomy Hx of angioplasty Hx of hysterectomy Hx of colonoscopy Family History Father CHF (congestive heart failure) CVD (cardiovascular disease) Mother CVD (cardiovascular disease) Stroke Alzheimer disease Son CVD (cardiovascular disease) HTN (hypertension) Social History Alcohol intake: never Patient Tobacco Use Status: Never used Tobacco Office Procedures Cardiac Device Check Cardiac Device Check Details: Remote pacemaker report generated 05/07/2024. Battery life is at SVETLANA. [id number]-Uzecqs Cardiac Device Interrogation, pacemaker Procedure code (CPT) selection complete Assessment & Plan Assessment & Plan (1) Cardiac pacemaker in situ: Comment: Dual-chamber [place] Code(s): Z95.0 - Presence of cardiac pacemaker Category: Medical Plan: See above Coding Level of Care Code Procedure Only Diagnoses Cardiac pacemaker in situ Z95.0 CPT Codes Cardiac Device Check - Cardiac Device 12: 24638-Ekiixt Cardiac Device Interrogation, pacemaker ([id number])
== END ==
PROVIDERS: PCP Family Medicine; Visit Provider Internal Medicine Cardiovascular Disease
DX: Z45.010 Encounter for checking and testing of cardiac pacemaker pulse generator [battery] (principal)
CPT/HCPCS: 93294

== ENCOUNTER 2024-05-08 14:25 | Outpatient (AMB) | payer MEDICARE, MEDICAID, SELFPAY ==
[2024-05-08 14:31] VITALS: BP 122/60; PULSE 68; BMI 32.6
--- NOTE | 2024-05-08 14:31 | A.OFFVIS_ITS ---
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 Allergies Penicillins [PENICILLINS] Allergy (Mild, Verified 12/26/23 14:55) RASH house dust Allergy (Unknown, Verified 12/26/23 14:55) Unknown mold Allergy (Unknown, Verified 12/26/23 14:55) Unknown lactose Adverse Reaction (Unknown, Verified 12/26/23 14:55) Unknown Medication List - Last Reconciled 05/08/24 by Aman Avalos MD acetaminophen ER 650 mg PO Q8H PRN atorvastatin 20 mg PO DAILY cholecalciferol (vitamin D3) (Vitamin D3) 50 mcg PO DAILY clotrimazole 1% appl topical BID diazepam 2.5 mg PO BID PRN diltiazem HCl ER (DILT-XR) 180 mg PO DAILY doxepin 10 mg PO BEDTIME furosemide 40 mg PO BID gabapentin 300 mg PO BEDTIME PRN hydrocortisone 2.5% appl topical 2XW ipratropium bromide 2 sprays intranasal Q12H ketoconazole 2% appl topical DAILY latanoprost 0.005% 1 drp ophthalmic (eye) BEDTIME lisinopril 5 mg PO DAILY methylcellulose (laxative) ea PO paroxetine HCl 10 mg PO DAILY Pradaxa (dabigatran etexilate) 150 mg PO BID NS sodium chloride-aloe vera 1 ea intranasal BEDTIME sodium chloride-aloe vera ([place] Saline Gel nasal spray) 1 spray intranasal BEDTIME PRN sotalol (Sotalol AF) 80 mg PO BID tretinoin 0.025% appl topical BEDTIME HPI Comments Details: Jessenia comes for follow-up. She has no obvious cardiac symptoms. Comes for pacemaker check for battery check. She has currently social issues with housing. Otherwise she is doing well with no symptoms of atrial fibrillation or heart failure. No lightheadedness, syncope. Denies any prolonged palpitation irregular heartbeat. No orthopnea, PND, leg edema. No bleeding issues or neurologic events PFSH Medical History (HFpEF) heart failure with preserved ejection fraction HTN (hypertension) Cardiac pacemaker in situ Paroxysmal atrial fibrillation Complete heart block Surgical History Hx of discectomy Hx of angioplasty Hx of hysterectomy Hx of colonoscopy Family History Father CHF (congestive heart failure) CVD (cardiovascular disease) Mother CVD (cardiovascular disease) Stroke Alzheimer disease Son CVD (cardiovascular disease) HTN (hypertension) Social History Alcohol intake: never Patient Tobacco Use Status: Never used Tobacco Review of Systems Const Denies weakness ENT Denies dizziness Card Denies chest pain, Denies chest pain with activity, Denies syncope, Denies rapid heart rate, Denies pedal edema, Denies edema, Denies leg edema, Denies lightheadedness, Denies palpitations, Denies dyspnea, Denies dyspnea on exertion and Denies orthopnea Resp Denies cough, Denies dyspnea and Denies dyspnea on exertion GI Denies hematochezia and Denies change in stool character Musc Denies abnormal gait, Denies muscle cramps, Denies muscle weakness, Denies numbness, Denies radiating pain into limb and Denies tingling Neuro Denies abnormal gait, Denies dizziness, Denies syncope, Denies numbness, Denies tingling and Denies weakness Endo Denies palpitations Physical Exam Vital Signs: Last Vital Signs Pulse 68 05/08/24 14:31 BP 122/60 05/08/24 14:31 BMI result Body Mass Index 32.6 Const General: cooperative, comfortable, no acute distress, alert and awake Nutritional Appearance: obese Orientation/consciousness: patient oriented x3 Limitations: no limitations HEENT Head: Yes normal to inspection, Yes normocephalic and Yes atraumatic Eyes General: appearance normal, both eyes and all related structures Neck Neck: Yes trachea midline, Yes supple and Yes no JVD Chest Chest palpation & inspection: normal inspection of the chest Resp Effort & Inspection: normal respiratory effort Auscultation: clear to auscultation bilaterally Cardio Jugular venous distension: no JVD Palpation: normal PMI Rate: regular rate Rhythm: regular rhythm Heart sounds: S1 normal heart sound present, S2 normal heart sound present and Other heart sounds present (S4) GI Auscultation: normal bowel sounds Skin General skin exam: no rashes or lesions noted and ecchymosis Neuro General: patient oriented x3 and no focal motor deficits Extrem General: Yes no clubbing, cyanosis or edema Psych Appearance: grossly normal Office Procedures Cardiac Device Check Cardiac Device Check Details: Dual-chamber [place] pacemaker which has reached SVETLANA. Rest of the parameters are stable 40791-BU Cardiac Device Check, pacemaker dual lead Procedure code (CPT) selection complete EKG Details: EKG shows atrially sensed, ventricularly paced rhythm [id number], Complete Assessment & Plan Assessment & Plan (1) (HFpEF) heart failure with preserved ejection fraction: Code(s): I50.30 - Unspecified diastolic (congestive) heart failure Category: Medical Plan: Heart failure preserved ejection fraction, clinically euvolemic and well compensated on current diuretic dose. Continue the same. Importance of rhythm control was discussed which has helped her significantly. Continue current diuretic dose. Daily weight monitoring avoidance salt loading was discussed additional diuretics as need be. Continue aggressive blood pressure control. (2) Paroxysmal atrial fibrillation: Comment: Has done extremely well with rhythm control approach. Currently suppressed on sotalol therapy Code(s): I48.0 - Paroxysmal atrial fibrillation Category: Medical Plan: Atrial fibrillation which has done extremely well with rhythm control approach with improvement in heart failure syndrome. No hospitalization related to it. Continue sotalol therapy. Semi annual renal function test should be pursued. Continue full oral anticoagulation, currently on dabigatran 150 mg b.i.d.. Semi annual renal function test should be performed as well for checking adequate dosing. Avoidance of stimulants was discussed. Continue monitor by pacer telemetry. (3) Cardiac pacemaker in situ: Comment: Dual-chamber [place] Code(s): Z95.0 - Presence of cardiac pacemaker Category: Medical Plan: Cardiac pacemaker in-situ for complete heart block. Pacemaker is working well has reached SVETLANA. Will schedule for pulse generator change. Risks, benefits, alternatives to procedure were discussed. She understands and agrees. Will follow up in the clinic in 3 months time, sooner p.r.n.. Thank you for allowing me to partake in her Coding Level of Care Code Est Pt Level 4 (67321) Complex EM visit Add On G2211 Diagnoses (HFpEF) heart failure with preserved ejection fraction I50.30 Paroxysmal atrial fibrillation I48.0 Cardiac pacemaker in situ Z95.0 CPT Codes Cardiac Device Check - Cardiac Device 2: 79194-[id number] Cardiac Device Check, pacemaker dual lead ([id number]) EKG - CPT: 97242-[id number], Complete ([id number])
--- OUTSIDE RECORDS SUMMARY | 2024-05-15 14:55 | XMS_ITS ---
Author Organization [facility] Address [address] [place] [address] Care Team Providers Care Metal [place]oulder Name Role Phone Pepito Chapa Primary Care Provider Unav ailable Delia Disla Unavailable [phone] REASON FOR VISIT DX not in LCD Encounters Encounter Location Date Provider Diagnosis [address] [address] 03/07/2024 Delia Disla Plan Of Treatment Next Appt Details Provider Name:Delia montague, 06/29/2024 01:45:00 PM, [address] [place] [address], [phone], Progress Notes * Ilan PISANOOB:1940 (83 yo F)Acc No.[id number]:03/07/2024 Patient:?Jessenia Pisano :1940???Age:83 Y???Sex:Female Address:[address] [facility], [place] [address] * true * Date:? Generated for Bii lb/Amy/eTransmitting on:?05/15/2024 02:55 PM EST
--- OUTSIDE RECORDS SUMMARY | 2024-05-15 14:55 | XMS_ITS | Patient Health Record ---
[facility] [place] Address [address] [place] [address] Care Team Providers Care Frameman Name Role Phone Pepito Chapa Primary Care Provider Unav ailkathleen Sanchezeddi Delia Unavailable [phone] Allergies Allergen (clinical drug ingredient) Drug/Non Drug Allergy documented on EMR Reaction Allergy Type Onset Date Status aspirin Aspirin Heart Dr said do not take Drug Allergy Active Dust Mites Trouble Breathing Allergy A ctive Mold Trouble breathing Allergy Ac tive Results Component Value Reference Range Notes HEMOGLOBIN A1C (GLYCOHEMOGLO BIN) Reviewed date:11/18/2023 01:14:25 PM Interpretation: Performing Lab: Notes/Report: HEMOGLOBIN A1C % (HH) 6.0 Reason For Referral No Information Medications Medication SIG (Take, Route, Frequency, Duration) Notes Start Date End Date Status Gabapentin 300 MG 1 capsule Orally Onc e a day for 30 day(s) Active Hydrocort-Pramoxine (Perianal) 2.5-1 % 1 application Externally Three times a day Active Fish Oil 1000 MG 1 capsule Orally Onc e a day for 30 day(s) Active Flunisolide 25 MCG/ACT (0.025%) as directed Nasally Active diazePAM 5 MG 1 tablet as needed Orally Once a day Active Doxepin HCl 10 MG 1 capsule at bedtime Orally Once a day for 30 day(s) Active Citrucel - as directed Orally Active Clotrimazole 1 % 1 application Externally Twice a day for 14 day(s) Active Atorvastatin Calcium 20 MG 1 tablet Orally Once a day for 30 day(s) Active [place] Saline Nasal Gel - as directed Nasally Active Ketoconazole Oral pill Active Ciclopirox Olamine 0.77 % 1 application Externally Twice a day to skin of feet including between the toes for 30 days Active Vitamin D Active Extra Depth Orthopedic Shoes (1 Pair) with Customized Heat Molded Multidensity Innersoles (3 Pair) as directed Dx: NIDDM (E11.9), Hammertoe Foot Deformity (M20.41,M20.42), Preulcerative Skin Lesion(s) (L85.1) 09/06/2023 Active Acetaminophen 650 MG/20.3ML as directed Orally every 8 hours as needed Active Sotalol HCl 80 MG 1 tablet Orally ever y 12 hrs for 30 day(s) Active Tretinoin 0.025 % 1 application in the evening to face Externally Once a day Active Pradaxa 150 MG 1 capsule Orally Twice a day for 30 day(s) Active Refresh Optive Advanced Active Lisinopril 5 MG 1 tablet Orally Once a day for 30 day(s) Active PARoxetine HCl 10 MG 1 tablet in the morning Orally Once a day for 30 day(s) Active Ketoconazole 2 % 1 application Externally Once a day for 14 day(s) Active Latanoprost 0.005 % 1 drop into affected eye in the evening Ophthalmic Once a day Active Hydrocortisone 2.5 % 1 application Externally Once a day Active ACT Fluoride Active Immunizations Vaccine Route Administration Date Status Comme nts Influenza Unknown 09/06/2023 Refused Social History Tobacco Use: Social History Observation Description Date Details (start date - stop date) Never Smoker NA - NA Tobacco Use/Smoking Question Answer Notes Are you a: nonsmoker Additional Findings: Tobacco Non-User Current no n-smoker Alcohol Screen Question Answer Notes Did you have a drink containing alcohol in the p ast year? No Points 0 Interpretation Negative Tobacco use other than smoking: Question Answer Notes Are you an other tobacco user? No Problems Problem Type SNOMED Code ICD Code Onset Dates Problem Status W/U Status Risk Notes Problem Acquired hammer toe of right foot (20655150494980 05) Other hammer toe(s) (acquired), right foot (M20.41) Active confirmed Problem Acquired hammer toe of left foot (01406826698211 03) Other hammer toe(s) (acquired), left foot (M20.42) Active confirmed Problem [id number] Type 2 diabetes mellitus without complication, without long-term current use of insulin (E11.9) Active confirmed Vital Signs Blood pressure diastolic 81 mm Hg 11/18/2023 Height 5 ft 3 in in 04/10/2024 Blood pressure systolic 138 mm Hg 11/18/2023 Weight 193 lbs 04/10/2024 BMI 34.18 kg/m2 04/10/2024 Encounters Encounter Location Date Provider Diagnosis [address] [address] 06/28/2023 Delia Disla Type 2 diabetes mellitus without complication, without long-term current use of insulin E11.9 and Ingrown nail L60.[address] [address] 09/06/2023 Delia Perica Type 2 diabetes mellitus without complication, without long-term current use of insulin E11.9 ; Other hammer toe(s) (acquired), right foot M20.41 and Other hammer toe(s) (acquired), left foot M20.[address] [address] 11/18/2023 Delia Sancheza Type 2 diabetes mellitus without complication, without long-term current use of insulin E11.9 ; Ingrown nail L60.0 ; Other hammer toe(s) (acquired), right foot M20.41 and Other hammer toe(s) (acquired), left foot M20.[address] [address] 01/31/2024 Delia Sancheza Type 2 diabetes mellitus without complication, without long-term current use of insulin E11.9 ; Ingrown nail L60.0 ; Other hammer toe(s) (acquired), right foot M20.41 and Other hammer toe(s) (acquired), left foot M20.[address] [address] 04/10/2024 Delia Perica Type 2 diabetes mellitus without complication, without long-term current use of insulin E11.9 ; Tinea pedis of both feet B35.3 ; Tinea unguium B35.1 ; Pain in right toe(s) M79.674 and Pain in left toe(s) M79.675 [facility] [address] [address] 09/30/2023 Delia Disla [facility] [address] [address] 12/16/2023 Delia Disla [facility] [address] [address] 03/07/2024 Delia Disla Assessments Encounter Date Diagnosis (ICD Code) Assessment Notes Treatment Notes Treatment Clinical Notes Section Notes 06/28/2023 Ingrown nail (ICD-10 - L60.0) 06/28/2023 Type 2 diabetes mellitus without complication, without long-term current use of insulin (ICD-10 - E11.9) 09/06/2023 Other hammer toe(s) (acquired), right foot (ICD-10 - M20.41) Patient Educated with: DIABETIC FOOT CARE INSTRUCTIONS.p df (DIABETIC FOOT CARE INSTRUCTIONS.p df) 11/18/2023 Ingrown nail (ICD-10 - L60.0) 11/18/2023 Type 2 diabetes mellitus without complication, without long-term current use of insulin (ICD-10 - E11.9) 09/06/2023 Type 2 diabetes mellitus without complication, without long-term current use of insulin (ICD-10 - E11.9) 01/31/2024 Type 2 diabetes mellitus without complication, without long-term current use of insulin (ICD-10 - E11.9) 04/10/2024 Type 2 diabetes mellitus without complication, without long-term current use of insulin (ICD-10 - E11.9) 04/10/2024 Tinea pedis of both feet (ICD-10 - B35.3) 01/31/2024 Ingrown nail (ICD-10 - L60.0) 04/10/2024 Tinea unguium (ICD-10 - B35.1) 11/18/2023 Other hammer toe(s) (acquired), right foot (ICD-10 - M20.41) 09/06/2023 Other hammer toe(s) (acquired), left foot (ICD-10 - M20.42) 01/31/2024 Other hammer toe(s) (acquired), right foot (ICD-10 - M20.41) 11/18/2023 Other hammer toe(s) (acquired), left foot (ICD-10 - M20.42) 04/10/2024 Pain in right toe(s) (ICD-10 - M79.674) 04/10/2024 Pain in left toe(s) (ICD-10 - M79.675) 01/31/2024 Other hammer toe(s) (acquired), left foot (ICD-10 - M20.42) Plan Of Treatment Next Appt Details Provider Name:Delia montague, 06/29/2024 01:45:00 PM, [address] [place] [address], [phone], Insurance Providers Payer Name Payer Address Payer Phone Subscriber Number Group Number Insured Name Patient Relationship to Insured Coverage Start Date Coverage End Date Medicare National [employer] [address] [place] [address] [id number] Jessenia Pisano Self - patient is the insured [employer] [address] [place] [address] [phone] [id number] Jessenia Pisano Self - patient is the insured Medical (General) History Medical History History ICD Code Anxiety Arthritis Back,Hip,and Knee pain Depression Fibromyalgia Diabetic Measles Mumps Chicken pox Psychiatric disorder osteoarthritis Heart disease Pacemaker Surgical History Surgery Date(Month/Year) cardiac pacemeker Heart Attack Heart Block Cervical discectomy/fusion
--- OUTSIDE RECORDS SUMMARY | 2024-05-15 14:55 | XMS_ITS ---
[facility] Organization [facility] Address [address] [place] [address] Care Team Providers Care Hook Loader Name Role Phone Pepito Chapa Primary Care Provider Unav ailable Delia Disla Unavailable [phone] Allergies Allergen (clinical drug ingredient) Drug/Non Drug Allergy documented on EMR Reaction Allergy Type Onset Date Status aspirin Aspirin Heart Dr said do not take Drug Allergy Active Dust Mites Trouble Breathing Allergy A ctive Mold Trouble breathing Allergy Ac tive REASON FOR VISIT At Risk Footcare, Toe Irritation, Ingrown Nail Medications Medication SIG (Take, Route, Frequency, Duration) Notes Start Date End Date Status Ketoconazole Oral pill Active Acetaminophen 650 MG/20.3ML as directed Orally every 8 hours as needed Active ACT Fluoride Active Extra Depth Orthopedic Shoes (1 Pair) with Customized Heat Molded Multidensity Innersoles (3 Pair) as directed Dx: NIDDM (E11.9), Hammertoe Foot Deformity (M20.41,M20.42), Preulcerative Skin Lesion(s) (L85.1) 09/06/2023 Active Atorvastatin Calcium 20 MG 1 tablet Orally Once a day for 30 day(s) Active Doxepin HCl 10 MG 1 capsule at bedtime Orally Once a day for 30 day(s) Active diazePAM 5 MG 1 tablet as needed Orally Once a day Active Citrucel - as directed Orally Active Clotrimazole 1 % 1 application Externally Twice a day for 14 day(s) Active Etna Saline Nasal Gel - as directed Nasally Active Hydrocort-Pramoxine (Perianal) 2.5-1 % 1 application Externally Three times a day Active Hydrocortisone 2.5 % 1 application Externally Once a day Active Flunisolide 25 MCG/ACT (0.025%) as directed Nasally Active Gabapentin 300 MG 1 capsule Orally Onc e a day for 30 day(s) Active Fish Oil 1000 MG 1 capsule Orally Onc e a day for 30 day(s) Active Pradaxa 150 MG 1 capsule Orally Twice a day for 30 day(s) Active Lisinopril 5 MG 1 tablet Orally Once a day for 30 day(s) Active PARoxetine HCl 10 MG 1 tablet in the morning Orally Once a day for 30 day(s) Active Ketoconazole 2 % 1 application Externally Once a day for 14 day(s) Active Latanoprost 0.005 % 1 drop into affected eye in the evening Ophthalmic Once a day Active Tretinoin 0.025 % 1 application in the evening to face Externally Once a day Active Vitamin D Active Refresh Optive Advanced Active Sotalol HCl 80 MG 1 tablet Orally ever y 12 hrs for 30 day(s) Active Social History Tobacco Use: Social History Observation Description Date Details (start date - stop date) Never Smoker NA - NA Tobacco Use/Smoking Question Answer Notes Are you a: nonsmoker Additional Findings: Tobacco Non-User Current no n-smoker Tobacco use other than smoking: Question Answer Notes Are you an other tobacco user? No Vital Signs Height 5 ft 3 in in 01/31/2024 Weight 193 lbs 01/31/2024 BMI 34.18 kg/m2 01/31/2024 Encounters Encounter Location Date Provider Diagnosis [facility] [address] [address] 01/31/2024 Delia Disla Type 2 diabetes mellitus without complication, without long-term current use of insulin E11.9 ; Ingrown nail L60.0 ; Other hammer toe(s) (acquired), right foot M20.41 and Other hammer toe(s) (acquired), left foot M20.42 Assessments Encounter Date Diagnosis (ICD Code) Assessment Notes Treatment Notes Treatment Clinical Notes Section Notes 01/31/2024 Type 2 diabetes mellitus without complication, without long-term current use of insulin (ICD-10 - E11.9) 01/31/2024 Ingrown nail (ICD-10 - L60.0) 01/31/2024 Other hammer toe(s) (acquired), right foot (ICD-10 - M20.41) 01/31/2024 Other hammer toe(s) (acquired), left foot (ICD-10 - M20.42) Plan Of Treatment Next Appt Details Follow Up: 2 Months, Reason: Provider Name:Delia montague, 06/29/2024 01:45:00 PM, [address] [place] [address], [id number], Progress Notes * ALIYAVilma WALKERanceDOB:1940 (83 yo F)Acc No.[id number]:01/31/2024 Progress Note Patient:?Aliya Jessenia Provider:?Delia Disla DPM :1940???Age:83 Y???Sex:Female D ate:01/31/2024 Address:[address] [place], [place] [id number] Pcp:Pepito Chapa Subjective: * Chief Complaints: * ???At Risk FootcareToe Irrit ationIngrown Nail * HPI: ???At Risk footcare:?Pt States Last PCP Visit:?Date?11/07/2023 ???Toe pain:?Location:?B/L feet.?Duration:?several years.?Course:?worse.?Aggravated by:?shoes, any pressure.?Treatments:?change in shoes.? * ROS:?General/Constitutional:?Nausea?denies, denies.?Vomiting?denies, denies.?Hunger Thirst?admits, admits.?Loss appetite?denies, denies.?Chills?denies, denies.?Fatigue?admits, admits.?Fever?denies, denies.?Night Sweats denies, denies.?Unexplained weight loss?denies, denies.?Unexplained weight gain?denies, denies.?HEENTM:?Dentures?denies, denies.?Dizziness?denies, denies.?Glasses/contacts?denies, denies.?Retinopathy?denies, denies.?Blurred/double vision?denies, denies.?TMJ?denies, denies.?Discharge/drainage?denies, denies.?Implants?denies, denies.?Sore throat?denies, denies.?Dental implants?denies, denies.?Hard of hearing ?denies, denies.?Difficulty chewing/swallowing/speaking?denies, denies.?Nose bleeds?denies, denies.?Sore mouth?denies, denies.?Respiratory:?On Oxygen?denies, denies.?Pneumonia/pleurisy?denies, denies.?Bronchitis?denies, denies.?Emphysema?denies, denies.?Coughing?denies, denies.?Cough blood?denies, denies.?Shortness of breath?denies, denies.?Wheezing?denies, denies.?Cardiovascular:?Pacemaker?admits, admits.?MVP?denies, denies.?WPW?denies, denies.?CHF?admits, admits.?Heart attack?admits, admits.?Septal defect?denies, denies.?Rapid beat?denies, denies.?Chest pain ?denies, denies.?Atrial Fib.?admits, admits.?Murmur/Palpitations?denies, denies.?Gastrointestinal:?Hemorrhoids?denies, denies.?Stomach/Abdominal pain?denies, denies.?Dark blood stool?denies, denies.?Irritable bowel ?denies, denies.?Constipation?admits, admits.?Diarrhea?denies, denies.?Hematology:?Swelling?denies, denies.?Clots?denies, denies.?Varicose Veins?denies, denies.?Bruising?denies, denies.?Bleeding problem?denies, denies.?Genitourinary:?Blood urine?denies, denies.?Frequent/Painfu/urination/bladder control?denies, denies.?Kidney stones?denies, denies.?Infection (UTI)?denies, denies.?Nephropathy?denies, denies.?sex trans dis (STD)?denies, denies.?Prostate?denies, denies.?Musculoskeletal:?Hammertoes?denies, denies.?Bunions?denies, denies.?Back Pain?admits, admits.?Muscle Cramps/ Resting?denies, denies.?Muscle cramps / walking?denies, denies.?Generalized aches and pains?admits, admits.?Weakness?denies, denies.?Integ.:?Conteh?denies, denies.?Scars?denies, denies.?Corns/calluses?denies, denies.?Ingrown nails?admits, admits.?Painful nails?denies, denies.?Open Sores?denies, denies.?Rashes?admits, admits.?Neurologic:?Difficulty sleeping?denies, denies.?Brain disorder?denies, denies.?Numbness?denies, denies.?Balance trouble?admits, admits.?Confusion?denies, denies.?Fainting/blackouts?denies, denies.?Tingling?denies, denies.?Tremors?denies, denies.? * Medical History:? * Surgical History:?cardiac pa cemeker Heart Attack Heart Block Cervical discectomy/fusion * Hospitalization/Major Diagno stic Procedure:?Denies Past Hospitalization * Family History:?Mother: dece ased, kidney/liver disease, diagnosed with Unspecified essential hypertension, Unspecified heart disease, Unspecified cerebral artery occlusion with cerebral infarction.?Father: , arthritis, cancer, foot problems, poor circulation.?Son(s): alive, diagnosed with Diabetic - NIDDM.? * Social History:?Tobacco Use:?Tobacco Use/Smoking?Are you a:?nonsmoker ?Additional Findings: Tobacco Non-User?Current non-smoker ?Tobacco use other than smoking?Are you an other tobacco user??No ???Miscellaneous:?no Caffeine, decaff coffee , 1-2 cups per day. ?Children: yes, 1. ?Exercise: yes, walking. ?Marital status: . ?Occupation: Retired at 54. * Medications:?TakingKetoconaz ole , Notes: Oral pillVitamin D Tretinoin 0.025 % Cream 1 application in the evening to face Externally Once a daySotalol HCl 80 MG Tablet 1 tablet Orally every 12 hrsRefresh Optive Advanced Pradaxa 150 MG Capsule 1 capsule Orally Twice a dayPARoxetine HCl 10 MG Tablet 1 tablet in the morning Orally Once a dayLisinopril 5 MG Tablet 1 tablet Orally Once a dayLatanoprost 0.005 % Solution 1 drop into affected eye in the evening Ophthalmic Once a dayKetoconazole 2 % Cream 1 application Externally Once a dayHydrocortisone 2.5 % Lotion 1 application Externally Once a dayHydrocort-Pramoxine (Perianal) 2.5-1 % Cream 1 application Externally Three times a dayGabapentin 300 MG Capsule 1 capsule Orally Once a dayFlunisolide 25 MCG/ACT (0.025%) Solution as directed Nasally Fish Oil 1000 MG Capsule 1 capsule Orally Once a dayDoxepin HCl 10 MG Capsule 1 capsule at bedtime Orally Once a daydiazePAM 5 MG Tablet 1 tablet as needed Orally Once a dayClotrimazole 1 % Cream 1 application Externally Twice a dayCitrucel - Powder as directed Orally Etna Saline Nasal Gel - Swab as directed Nasally Atorvastatin Calcium 20 MG Tablet 1 tablet Orally Once a dayACT Fluoride Acetaminophen 650 MG/20.3ML Suspension as directed Orally , Notes: every 8 hours as neededExtra Depth Orthopedic Shoes (1 Pair) with Customized Heat Molded Multidensity Innersoles (3 Pair) as directed Dx: NIDDM (E11.9), Hammertoe Foot Deformity (M20.41,M20.42), Preulcerative Skin Lesion(s) (L85.1)Medication List reviewed and reconciled with the patientTaking Ketoconazole , Notes: Oral pillTaking Vitamin D Taking Tretinoin 0.025 % Cream 1 application in the evening to face Externally Once a dayTaking Sotalol HCl 80 MG Tablet 1 tablet Orally every 12 hrsTaking Refresh Optive Advanced Taking Pradaxa 150 MG Capsule 1 capsule Orally Twice a dayTaking PARoxetine HCl 10 MG Tablet 1 tablet in the morning Orally Once a dayTaking Lisinopril 5 MG Tablet 1 tablet Orally Once a dayTaking Latanoprost 0.005 % Solution 1 drop into affected eye in the evening Ophthalmic Once a dayTaking Ketoconazole 2 % Cream 1 application Externally Once a dayTaking Hydrocortisone 2.5 % Lotion 1 application Externally Once a dayTaking Hydrocort-Pramoxine (Perianal) 2.5-1 % Cream 1 application Externally Three times a dayTaking Gabapentin 300 MG Capsule 1 capsule Orally Once a dayTaking Flunisolide 25 MCG/ACT (0.025%) Solution as directed Nasally Taking Fish Oil 1000 MG Capsule 1 capsule Orally Once a dayTaking Doxepin HCl 10 MG Capsule 1 capsule at bedtime Orally Once a dayTaking diazePAM 5 MG Tablet 1 tablet as needed Orally Once a dayTaking Clotrimazole 1 % Cream 1 application Externally Twice a dayTaking Citrucel - Powder as directed Orally Taking Etna Saline Nasal Gel - Swab as directed Nasally Taking Atorvastatin Calcium 20 MG Tablet 1 tablet Orally Once a dayTaking ACT Fluoride Taking Acetaminophen 650 MG/20.3ML Suspension as directed Orally , Notes: every 8 hours as neededTaking Extra Depth Orthopedic Shoes (1 Pair) with Customized Heat Molded Multidensity Innersoles (3 Pair) as directed Dx: NIDDM (E11.9), Hammertoe Foot Deformity (M20.41,M20.42), Preulcerative Skin Lesion(s) (L85.1)Medication List reviewed and reconciled with the patient * Allergies:?Aspirin: Heart Dr said do not takeMold: Trouble breathingDust Mites: Trouble Breathingyes[Allergies Verified] Objective: * Vitals:?Ht: 5 ft 3 in, Wt: 1 93, BMI: 34.18, Shoe size: 10.5-11, BS: not taken, Ht-cm: 160.02 cm, Wt-k.54 kg. * ???Past Orders: ???Lab:HEMOGLOBIN A1C (GLYCO HEMOGLOBIN) (Order Date - 11/07/2023) (Collection Date - 11/07/2023) ? Value Reference Range ?HEMOGLOBIN A1C % (HH) 6.0 * Examination: ???Ophthalmology Referral: ?DIABETES EYE EXAM?General Examination: ?GENERAL APPEARANCE:?Reveals a pleasant, alert, well-nourished, well- developed, well hydrated individual, who demonstrates proper attention to hygiene/body habitus, and is in no acute distress, Pt serves as own?historian for office visit today.?ORIENTED:?person, place, and time.?FOOT EXAM:?Footwear Evaluation?Neurological: ?SENSORY:?Neurological exam reveals intact sensorium, pain sensation normal, vibration sensation intact, pinprick sensation is normal in the lower extremities, Pt denies, anesthesia, burning, paresthesia, tingling, B/L , Neurological exam reveals intact sensorium, pain sensation normal, vibration sensation intact, pinprick sensation is normal in the lower extremities, 5.07 monofilament test performed at plantar aspects of 5 varied sites per foot shows sensation, normal, B/L, Pt denies, anesthesia, burning, paresthesia, tingling, B/L.?DEEP TENDON REFLEXES:?Achilles, 2/4, B/L.?Vascular: ?DP PULSES:?3/4, B/L.?PT PULSES:?3/4, B/L.?CAPILLARY FILL TIME:?immediate, all digits, B/L.?SKIN TEMPERTURE GRADIENT OF THE LOWER EXTERMITIES:?warm to cool, proximal to distal, B/L.?HAIR GROWTH/TEXTURE/ELASTICITY/TURGOR:?normal, B/L.?PIGMENTATION:?normal, B/L.?EDEMA:?absent, B/L.?Dermatologic: ?SKIN FINDINGS:?Skin exam reveals normal texture, elasticity, and turgor. There are no masses. The interspaces are clear .?Orthopedic: ?MUSCLE STRENGTH:?5/5 all groups in a symmetrical fashion , B/L.?DIGITAL DEFORMITIES:?Digital contracture, PIPJ, 2-5 B/L, incompl-reducible to push-up test, no over, nor underlapping, with evidence of shoe producing skin irritation.?FOOTWEAR:?worn, non-supportive, shoe gear properties exacerbate patient's foot/toe deformity , shoe gear properties exacerbate patients foot/toe deformity.?Nails: ?NAILS are:?Elongated, overgrown, dystrophic , 1-5 B/L.?Ingrown Nail: ?INSPECTION:?Reveals nail incurvation, pain on palpation, groove hypertrophy Medial nail border There is evidence of surrounding periungual tissue erythema TA.? Assessment: * Assessment: 1.?Type 2 diabetes mellitus without complication, without long-term current use of insulin - E11.9?2.?Ingrown nail - L60.0 (Primary)?3.?Other hammer toe(s) (acquired), right foot - M20.41, Chronic problem, Worse (4),Rx Management (4)?4.?Other hammer toe(s) (acquired), left foot - M20.42, Chronic problem, Worse (4),Rx Management (4)? Plan: * Treatment: * Procedure Codes:?G0127 CAM ING DYSTROPHIC NAILS ANY #, Modifiers: XS * Preventive Medicine:? ??Counseling:?Discussion:?-13: Office or other outpatient visit for the evaluation and management of an established patient, which required a medically appropriate history and/or examination and LOW level of DECISION MAKING for: 1 STABLE ACUTE UNCOMPLICATED PROBLEM, 2 OR MORE MINOR PROBLEMS, OR 1 STABLE CHRONIC PROBLEM, THAT POSE(S) A LOW RISK FOR MORBIDITY/MORTALITY. The visit on the day of the encounter encompassed interpreting the data and educating the patient as to the nature of their condition, treatment options available according to their individual PMH, meds, allergies, and overall health/living conditions, as well as any potential risks or complications that may occur from a failure to adhere to, and participate in, the recommended course of therapy. The discussion included a complete verbal, and/or written explanation of the examination results, any x-rays taken, the proposed diagnosis, and outline of the treatment plan. A schedule for future care needs was also explained. The patient verbalized an understanding of the instructions at this time and agreed to be an active participant in their treatment. If the patient should think of any questions or concerns after the visit, I have encouraged the patient to call the office.?Abscess/Paraonychia/Ingrown Nails:?We discussed the possible etiologies (genetic, improper nail care, shoe gear, nail trauma) which may lead to ingrown nails and/or paronychial infections. We discussed and reviewed palliative/nonsurgical/deferring definitive treatment (vs) undergoing the treatment procedures of nail avulsion(s) or PNA, which may prevent recurrence and give more lasting results. The possible risks/complications such as worsened condition/delayed healing/nonhealing/failure/recurrence/infection, the potential benefits/advantages of decreased pain/deformity, as well as alterative treatment options including applying nail softening agents/nail groove packing were discussed. No guarantees were given regarding any outcome for any procedure. The patient was educated in the length of time for the affected nail to regrow once completely healed from a nail avulsion procedure. Once the condition has completely healed, the patient was consulted on proper nail care. Patient questions such as details of each procedure, varying time to heal, activity post procedure, and shoe gear were discussed and the answers were verbally confirmed fully understood, slant back performed with good relief of pain, pt to monitor for any signs of infection, pt should soak in warm water and epsom salts and apply antibotic ointment, call with any issues.? * Follow Up:?2 Months * Images: * Sign off status: Completed true * Provider:Jayashree Disla, DPMae Date:? Generated for Norma asher/Amy/Curryitting on:?05/15/2024 02:55 PM EST History and Physical Notes * HPI (History of Present Illness) Category Sub-Category Detail Notes Category Not es Toe pain Location: B/L feet Duration: several years Course: worse Aggravated by: shoes, any pressure Treatments: change in shoes At Risk footcare Pt States Last PCP Visit: Date: Examination Category Sub-Category Detail Notes Category Not es Ingrown Nail INSPECTION: Reveals nail inc urvation, pain on palpation, groove hypertrophy Medial nail border There is evidence of surrounding periungual tissue erythema TA Neurological SENSORY: Neurological exa m reveals intact sensorium, pain sensation normal, vibration sensation intact, pinprick sensation is normal in the lower extremities, Pt denies, anesthesia, burning, paresthesia, tingling, B/L , Neurological exam reveals intact sensorium, pain sensation normal, vibration sensation intact, pinprick sensation is normal in the lower extremities, 5.07 monofilament test performed at plantar aspects of 5 varied sites per foot shows sensation, normal, B/L, Pt denies, anesthesia, burning, paresthesia, tingling, B/L DEEP TENDON REFLEXES: Achilles, 2/4, B/L Dermatologic SKIN FINDINGS: Skin exam reveal s normal texture, elasticity, and turgor. There are no masses. The interspaces are clear Orthopedic FOOTWEAR: worn, non-suppor tive, shoe gear properties exacerbate patient's foot/toe deformity , shoe gear properties exacerbate patients foot/toe deformity DIGITAL DEFORMITIES: Digital contracture , PIPJ, 2-5 B/L, incompl-reducible to push-up test, no over, nor underlapping, with evidence of shoe producing skin irritation MUSCLE STRENGTH: 5/5 all groups in a symmetrical fashion , B/L General Examination GENERAL APPEARANCE: Reveals a pleasant, alert, well- nourished, well-developed, well hydrated individual, who demonstrates proper attention to hygiene/body habitus, and is in no acute distress, Pt serves as own historian for office visit today FOOT EXAM: Lower Extremity Neurological Exa m performed:: Yes ORIENTED: person, place, and t edinson Footwear Evaluation Footwear Evaluation performe d:: Yes Ophthalmology Referral DIABETES EYE EXAM Diabetic Retinopa thy Screening:: Yes Findings of Diabetic Eye Exam:: no retin opathy Vascular DP PULSES(B): 3/4, B/L PT PULSES(B): 3/4, B/L CAPILLARY FILL TIME: immediate, all digi ts, B/L TEMPERTURE GRADIENT(C): warm to cool, pr oximal to distal, B/L TROPHIC CONDITION-TEXTURE/ELASTICITY/TURGOR/HAIR GROWTH(B): normal, B/L EDEMA(C): absent, B/L PIGMENTATION: normal, B/L Nails NAILS are: Elongated, overgrown, dystro phic , 1-5 B/L
--- OUTSIDE RECORDS SUMMARY | 2024-05-15 14:55 | XMS_ITS ---
Author Organization [facility] Address [address] [place] [address] Care Team Providers Care Senior Supplier Quality Engineer Name Role Phone Pepito Chapa Primary Care Provider Unav ailable Delia Disla Unavailable [phone] Allergies Allergen (clinical drug ingredient) Drug/Non Drug Allergy documented on EMR Reaction Allergy Type Onset Date Status aspirin Aspirin Heart Dr said do not take Drug Allergy Active Dust Mites Trouble Breathing Allergy A ctive Mold Trouble breathing Allergy Ac tive REASON FOR VISIT At Risk Footcare, Skin Problem Medications Medication SIG (Take, Route, Frequency, Duration) Notes Start Date End Date Status diazePAM 5 MG 1 tablet as needed Orally Once a day Active Citrucel - as directed Orally Active Clotrimazole 1 % 1 application Externally Twice a day for 14 day(s) Active Atorvastatin Calcium 20 MG 1 tablet Orally Once a day for 30 day(s) Active Nicolaus Saline Nasal Gel - as directed Nasally Active Gabapentin 300 MG 1 capsule Orally Onc e a day for 30 day(s) Active Hydrocort-Pramoxine (Perianal) 2.5-1 % 1 application Externally Three times a day Active Fish Oil 1000 MG 1 capsule Orally Onc e a day for 30 day(s) Active Flunisolide 25 MCG/ACT (0.025%) as directed Nasally Active Doxepin HCl 10 MG 1 capsule at bedtime Orally Once a day for 30 day(s) Active Lisinopril [...] 1 application Externally Once a day Active Vitamin D Active Sotalol HCl 80 MG 1 tablet Orally ever y 12 hrs for 30 day(s) Active Tretinoin 0.025 % 1 application in the evening to face Externally Once a day Active Pradaxa 150 MG 1 capsule Orally Twice a day for 30 day(s) Active Refresh Optive Advanced Active Extra Depth Orthopedic Shoes (1 Pair) with Customized Heat Molded Multidensity Innersoles (3 Pair) as directed Dx: NIDDM (E11.9), Hammertoe Foot Deformity (M20.41,M20.42), Preulcerative Skin Lesion(s) (L85.1) 09/06/2023 Active Ciclopirox Olamine 0.77 % 1 application Externally Twice a day to skin of feet including between the toes for 30 days Active Acetaminophen 650 MG/20.3ML as directed Orally every 8 hours as needed Active Ketoconazole Oral pill Active ACT Fluoride Active Social History Tobacco Use: Social History [...] Signs Height 5 ft 3 in in 04/10/2024 Weight 193 lbs 04/10/2024 BMI 34.18 kg/m2 04/10/2024 Encounters Encounter Location Date Provider Diagnosis [facility] [place] [address] [place] [address] 04/10/2024 Delia Disla Type 2 diabetes mellitus without complication, without long-term current use of insulin E11.9 ; Tinea pedis of both feet B35.3 ; Tinea unguium B35.1 ; Pain in right toe(s) M79.674 and Pain in left toe(s) M79.675 Assessments Encounter Date Diagnosis (ICD Code) Assessment Notes Treatment Notes Treatment Clinical Notes Section Notes 04/10/2024 Type 2 diabetes mellitus without complication, without long-term current use of insulin (ICD-10 - E11.9) 04/10/2024 Tinea pedis of both feet (ICD-10 - B35.3) 04/10/2024 Tinea unguium (ICD-10 - B35.1) 04/10/2024 Pain in right toe(s) (ICD-10 - M79.674) 04/10/2024 Pain in left toe(s) (ICD-10 - M79.675) Plan Of Treatment Medication Medication Name Sig Start Date Stop Date Notes Ciclopirox Olamine 0.77 % 1 application Externally Twice a day to skin of feet including between the toes for 30 days Next Appt Details Follow Up: 2 Months, Reason: Provider Name:Delia montague, 06/29/2024 01:45:00 PM, [address] [place] [address], [phone], Procedure Notes * Category Sub-Category Detail Notes Debride Nail 6-10 Nail debridement Performance o f this nail treatment by a nonprofessional would put this patients foot and overall health at risk. Therefore, nail debridement was performed extensively to reduce/remove overall nail length, girth, thickness, subungual debris, and necrotic tissue, by manual and/or electrical means through the use of a nail nipper and/or dremel-type wood grinder operator, to a more viable healthy nail plate or bed tissue 6-10. Silver nitrate used for any petechial bleeding as necessary. Definitive antifungal treatment options have been reviewed and discussed with the patient. The patient chooses, no pharmaceutical tx - [id number] Progress Notes * Vilma PISANOanceDOB:1940 (83 yo F)Acc No.[id number]:04/10/2024 Progress Note Patient:?Vilma Pisanoance Provider:?Delia Disla DPM :1940???Age:83 Y???Sex:Female D ate:04/10/2024 Address:[address] [place], [place] [id number] Pcp:Pepito Chapa Subjective: * Chief Complaints: * ???At Risk FootcareSkin Prob matilda * HPI: ???At Risk footcare:?Pt States Last PCP Visit:?Date?11/07/2023 ???Skin problems:?Nature:?scaling , redness.?Location:?B/L .?Duration:?several days.?Course:?worse.? * ROS:?General/Constitutional:?Nausea?denies, denies.?Vomiting?denies, denies.?Hunger Thirst?admits, admits.?Loss appetite?denies, [...] than smoking?Are you an other tobacco user??No ???Drugs/Alcohol:?Drugs?Have you used drugs other than those for medical reasons in the past 12 months??No ?Alcohol Screen?Did you have a drink containing alcohol in the past year??No ?Points?0 ?Interpretation?Negative ???Miscellaneous:?no Caffeine, decaff coffee , 1-2 cups [...] a dayCitrucel - Powder as directed Orally Nicolaus Saline Nasal Gel - Swab as directed [...] Citrucel - Powder as directed Orally Taking Nicolaus Saline Nasal Gel - Swab as directed [...] reconciled with the patient * Allergies:?Aspirin: Heart said do not takeMold: Trouble breathingDust Mites: Trouble Breathingyes[Allergies Verified] Objective: * Vitals:?Ht: 5 ft 3 in, Wt:19 3, BMI: 34.18, Shoe size:10.5-11, BS:not taken, Ht- cm: 160.02 cm, Wt-k.54 kg. * ???Past Orders: ???Lab:HEMOGLOBIN A1C (GLYCO HEMOGLOBIN) (Order Date - 11/07/2023) (Collection Date - 11/07/2023) ? Value Reference Range ?HEMOGLOBIN A1C % (HH) 6.0 * Examination: ???CQM Exceptions:: ?Hemoglobin A1c not performed?Ophthalmology Referral: ?DIABETES EYE EXAM?General Examination: ?GENERAL APPEARANCE:?Reveals [...] B/L, Pt denies, anesthesia, burning, paresthesia, tingling, B/L.?Vascular: ?DP PULSES(B):?3/4, B/L.?PT PULSES(B):?3/4, B/L.?CAPILLARY FILL TIME:?immediate, all digits, B/L.?TROPHIC CONDITION-TEXTURE/ELASTICITY/TURGOR/HAIR GROWTH(B):?normal, B/L.?TEMPERTURE GRADIENT(C):?warm to cool, proximal to distal, B/L.?PIGMENTATION:?normal, B/L.?EDEMA(C):?absent, B/L.?Dermatologic: ?SKIN FINDINGS:?Skin shows sign(s) of, erythema, scaling, in a moccasin fashion, no fissure(s) present, B/L.?Orthopedic: ?MUSCLE STRENGTH:?5/5 all groups in a symmetrical fashion , B/L.?DIGITAL DEFORMITIES:?Digital contracture, PIPJ, 2-5 B/L, incompl-reducible to push-up test, no over, nor underlapping, with evidence of shoe producing skin irritation.?FOOTWEAR:?worn, non-supportive, shoe gear properties exacerbate patient's foot/toe deformity , shoe gear properties exacerbate patients foot/toe deformity.?Nails: ?NAILS are:?Elongated, overgrown, dystrophic, lytic, greater than 3mm thick, discolored and friable with crumbly malodorous subungual debris, with pain on palpation , 1-5 B/L.? Assessment: * Assessment: 1.?Type 2 diabetes mellitus without complication, without long-term current use of insulin - E11.9?2.?Tinea pedis of both feet - B35.3 (Primary), Acute problem, Uncomplicated (3),Rx drug management (4)?3.?Tinea unguium - B35.1?4.?Pain in right toe(s) - M79.674?5.?Pain in left toe(s) - M79.675? Plan: * Treatment: * Procedures:?Debride Nail 6-10:?Nail debridement?Performance of this nail treatment by a nonprofessional would put this patients foot and overall health at risk. Therefore, nail debridement was performed extensively to reduce/remove overall nail length, girth, thickness, subungual debris, and necrotic tissue, by manual and/or electrical means through the use of a nail nipper and/or dremel-type wood grinder operator, to a more viable healthy nail plate or bed tissue 6-10. Silver nitrate used for any petechial bleeding as necessary. Definitive antifungal treatment options have been reviewed and discussed with the patient. The patient chooses, no pharmaceutical tx - 95822.? * Procedure Codes:?60034 DEBRI DE NAIL, 6 OR MORE, Modifiers: XS * Preventive Medicine:? ??Counseling:?Discussion:?-13: Office [...] have encouraged the patient to call the office.?Tinea Pedis:?The patient was counseled on the diagnosis, potential etiologies, and treatment options for their skin condition. We discussed the risks and benefits of each option from performing no treatment, to utilizing OTC topical skin creams, prescription topical creams, customized compounded topical medications, and, if necessary, to utilize oral antifungal therapy. We discussed the advantages and disadvantages of each possible treatment and importance for adherence to all the recommended therapies for optimum success and avoid potential complications such as open sore/infection/possible hospitalization. We discussed the potential effectiveness of each topical preparation as well as each ones possible side effects and/or patient medication interactions if oral therapy is selected. Patient questions re: the advantages and disadvantages of each treatment choice, medication use/dosage, successful outcomes, and application consistency were reviewed and the patient verbalized that all answers were clearly understood. The patient was told they can help alleviate symptoms by utilizing moisture absorbant innersoles with activated charcoal and baking soda, applying antifungal sprays daily, aerating toe web spaces at night by putting cotton or lambs wool between the toes, alternating shoe gear daily if possible so they can dry out, changing socks at least once during the day, wearing well-ventilated shoes or sandals. The patient has decided to apply antifungal skin creams to their feet as directed. Rx was sent to their pharmacy at the time of visit.? * Follow Up:?2 Months * Images: * Sign off status: Completed true * Provider:Jayashree Disla, TOYA Date:?10/2023 Generated for Norma asher/Amy/Refugio on:?05/15/2024 02:55 PM EST History and Physical Notes * HPI (History of Present Illness) Category Sub-Category Detail Notes Category Not es Skin problems Nature: scaling , redness Location: B/L Duration: several days Course: worse At Risk footcare Pt States Last PCP Visit: Date: 4 Examination Category Sub-Category Detail Notes Category Not es Neurological SENSORY: Neurological exa m reveals intact [...] Pt denies, anesthesia, burning, paresthesia, tingling, B/L Dermatologic SKIN FINDINGS: Skin shows sign( s) of, erythema, scaling, in a moccasin fashion, no fissure(s) present, B/L Orthopedic FOOTWEAR: worn, non-suppor tive, shoe gear [...] d:: Yes Ophthalmology Referral DIABETES EYE EXAM Procedure Perform ed:: No Diabetic Retinopathy Screening:: No Findings of Diabetic Eye Exam:: no retin opathy Vascular DP PULSES(B): 3/4, B/L PT PULSES(B): 3/4, B/L CAPILLARY FILL TIME: immediate, all digi ts, B/L TEMPERTURE GRADIENT(C): warm to cool, pr oximal to distal, B/L TROPHIC CONDITION-TEXTURE/ELASTICITY/TURGOR/HAIR GROWTH(B): normal, B/L EDEMA(C): absent, B/L PIGMENTATION: normal, B/L Nails NAILS are: Elongated, overg rown, dystrophic, lytic, greater than 3mm thick, discolored and friable with crumbly malodorous subungual debris, with pain on palpation , 1-5 B/L CQM Exceptions: Hemoglobin A1c not performed Reason:: No r qing specified
== END 2024-05-08 15:13 | disposition home or self-care (01) ==
PROVIDERS: PCP Family Medicine; Visit Provider Internal Medicine Cardiovascular Disease
DX: I50.30 Unspecified diastolic (congestive) heart failure (principal); I48.0 Paroxysmal atrial fibrillation; Z95.0 Presence of cardiac pacemaker
CPT/HCPCS: 93010; 93280; 99214; G2211

== ENCOUNTER → 2024-05-08 14:25 | Outpatient (BNVA) | payer MEDICARE, MEDICAID, SELFPAY | PROVIDERS: PCP Family Medicine; Visit Provider Internal Medicine Cardiovascular Disease | DX: I11.0 Hypertensive heart disease with heart failure (principal); I50.30 Unspecified diastolic (congestive) heart failure; I48.0 Paroxysmal atrial fibrillation; Z59.89 Other problems related to housing and economic circumstances; Z95.0 Presence of cardiac pacemaker | CPT/HCPCS: 93005; 93280; 99212 ==

== ENCOUNTER → 2024-06-04 23:59 | Outpatient (BNV) | payer MEDICARE, MEDICAID, SELFPAY ==
--- NOTE | 2024-06-05 16:19 | MHC.OFFVIS ---
Intake Visit Reasons: Remote device check- [place] Allergies Penicillins [PENICILLINS] Allergy (Mild, Verified 12/26/23 14:55) RASH house dust Allergy (Unknown, Verified 12/26/23 14:55) Unknown mold Allergy (Unknown, Verified 12/26/23 14:55) Unknown lactose Adverse Reaction (Unknown, Verified 12/26/23 14:55) Unknown PFSH Medical History (HFpEF) heart failure with preserved ejection fraction HTN (hypertension) Cardiac pacemaker in situ Paroxysmal atrial fibrillation Complete heart block Surgical History Hx of discectomy Hx of angioplasty Hx of hysterectomy Hx of colonoscopy Family History Father CHF (congestive heart failure) CVD (cardiovascular disease) Mother CVD (cardiovascular disease) Stroke Alzheimer disease Son CVD (cardiovascular disease) HTN (hypertension) Social History Alcohol intake: never Patient Tobacco Use Status: Never used Tobacco Office Procedures Cardiac Device Check Cardiac Device Check Details: Remote pacemaker report generated 06/04/2024. Pacemaker function is adequate 99877-Nordic Cardiac Device Interrogation, pacemaker Procedure code (CPT) selection complete Assessment & Plan Assessment & Plan (1) Cardiac pacemaker in situ: Comment: Dual-chamber [place] Code(s): Z95.0 - Presence of cardiac pacemaker Category: Medical Plan: See above Coding Level of Care Code Procedure Only Diagnoses Cardiac pacemaker in situ Z95.0 CPT Codes Cardiac Device Check - Cardiac Device 12: 16075-Vhuorz Cardiac Device Interrogation, pacemaker ([id number])
== END ==
PROVIDERS: PCP Family Medicine; Visit Provider Internal Medicine Cardiovascular Disease
DX: Z45.018 Encounter for adjustment and management of other part of cardiac pacemaker (principal)
CPT/HCPCS: 93294

== ENCOUNTER 2024-08-09 12:26 | Day surgery (SDC) | payer MEDICARE, OTHER, SELFPAY ==
--- OUTSIDE RECORDS SUMMARY | 2024-08-06 16:02 | XMS_ITS | Encounter Summary ---
Author Organization [facility] Address [address] [place] [address] Care Team Providers Care Wet Process Miller Head Name Role Phone Olman Mejía MD Primary Care Provider Pepito Dunne MD Primary Care Provider + Encounter Details Date Type Department Care Team Description 01/30/2019 Pt. Non Urgent Medic al Question Allergy [address] [address] [place] [phone] Eliane Talamantes MD Social History Tobacco Use Types Packs/Day Years Used Date Smoking Tobacco: Never Smokeless Tobacco: Never Alcohol Use Standard Drinks/Week Comments No 0 (1 standard drink = 0.6 oz pur e alcohol) Sex Assigned at Date Recorded Not on file Job Start Date Occupation Industry Not on file Not on file Not on file documented as of this encounter Progress Notes * Carmen Dewey M.A. - 01/30/2019 6:01 PM EDTFrom: Jessenia Pisano To: Eliane Talamantes MD Sent: 01/30/2019 11:37 AM EDT Subject: Will the sleep study you ordered be covered by Medicare Dear Dr. Talamantes, I have a question regarding the billing of the sleep study. You used code #45849. Will Medicare & Blue Cross pay for the $1,807.00 for the study. I cannot afford large out of pocket costs. I havespent hours trying find the answer but no one can help. Medicare says they will only cover sleep studies for sleep apnea nothing else. Please help. Zeenat Pisano documented in this encounter Plan of Treatment Not on file documented as of this encounter Visit Diagnoses Not on filedocumented in this encounter Care Teams Wet Process Miller Head Relationship Specialty Start Date End Date Olman Mejía MD PCP - General Internal Medicine 12/23/14 12/27/21 Pepito Chapa MD [address] [place] [address] PCP - General Internal Medicine 12/28/21 documented as of this encounter
--- OUTSIDE RECORDS SUMMARY | 2024-08-06 16:02 | XMS_ITS | Encounter Summary ---
Author Organization [facility] Address [address] [facility] [place] [address] Care Team Providers Care Forming Machine Adjuster Name Role Phone Olman Mejía MD Primary Care Provider Pepito Dunne MD Primary Care Provider + Reason for Visit * Reason Comments E-prescribe Rx Request Encounter Details Date Type Department Care Team Description 12/08/2016 Refill Adult Medicine [address] [address] Olman Mejía MD E-prescribe Rx Request Social History Tobacco Use Types Packs/Day Years Used Date Smoking Tobacco: Never Alcohol Use Standard Drinks/Week Comments No 0 (1 standard drink = 0.6 oz pur e alcohol) Sex Assigned at Date Recorded Not on file Job Start Date Occupation Industry Not on file Not on file Not on file documented as of this encounter Miscellaneous Notes * Telephone Encounter - Florence Leon - 12/08/2016 12:13 PM EDT Patient would like script to be: E-PRESCRIBED/FAXED TO PHARMACY WHEN WAS THE PATIENT'S LAST APPOINTMENT IN ADULT MEDICINE? 10/06/2016 WHEN WAS THE LAST TIME THE PATIENT SAW THEIR PCP? 05/19/2016 Does patient have an upcoming appointment? Yes 02/11/2017 (THE MEDICATION REQUESTED IS ON THE MED LIST ABOVE) All of the medications requested were on the CURRENT MEDS list Did you check the Pharmacy information above?: YES Patient wants: 90 -day supply Is this a mail order prescription request ? NO Patients current insurance carrier is: Payor: MEDICARE-Tappr / Plan: MEDICARE-Tappr / Product Type: MEDICARE [id number] documented in this encounter Plan of Treatment Not on file documented as of this encounter Visit Diagnoses Not on filedocumented in this encounter Care Teams Forming Machine Adjuster Relationship Specialty Start Date End Date Olman Mejía MD PCP - General Internal Medicine 12/23/14 12/27/21 Pepito Chapa MD [address] [place] [address] PCP - General Internal Medicine 12/28/21 documented as of this encounter
--- OUTSIDE RECORDS SUMMARY | 2024-08-06 16:02 | XMS_ITS | Encounter Summary ---
Author Organization [facility] Address [address] [facility] [place] [address] Care Team Providers Care Securities Attorney Name Role Phone Olman Mejía MD Primary Care Provider Pepito Dunne MD Primary Care Provider + Encounter Details Date Type Department Care Team Description 10/29/2016 [facility] Medical Records [address] [place] [address] Abstract, Provider Social History Tobacco Use Types Packs/Day Years Used Date Smoking Tobacco: Never Alcohol Use Standard Drinks/Week Comments No 0 (1 standard drink = 0.6 oz pur e alcohol) Sex Assigned at Date Recorded Not on file Job Start Date Occupation Industry Not on file Not on file Not on file documented as of this encounter Plan of Treatment Not on file documented as of this encounter Visit Diagnoses Not on filedocumented in this encounter Care Teams Securities Attorney Relationship Specialty Start Date End Date Olman Mejía MD PCP - General Internal Medicine 12/23/14 12/27/21 Pepito Chapa MD [address] [place] [address] PCP - General Internal Medicine 12/28/21 documented as of this encounter
--- OUTSIDE RECORDS SUMMARY | 2024-08-06 16:02 | XMS_ITS | Encounter Summary ---
Author Organization [facility] Address [address] [facility] [place] [address] Care Team Providers Care Purchasing Supervisor Name Role Phone Olman Mejía MD Primary Care Provider Pepito Dunne MD Primary Care Provider + Encounter Details Date Type Department Care Team Description 10/09/2018 Incoming Correspondence Medical Records [address] [place] [id number] Abstract, Provider Social History Tobacco Use Types [...] on filedocumented in this encounter Care Teams Purchasing Supervisor Relationship Specialty Start Date End Date Olman Mejía MD PCP - General Internal Medicine 12/23/14 12/27/21 Pepito Chapa MD [address] [place] [address] PCP - General Internal Medicine 12/28/21 documented as of this encounter
--- OUTSIDE RECORDS SUMMARY | 2024-08-06 16:02 | XMS_ITS | Encounter Summary ---
Author Organization [facility] Address [address] [facility] [place] [address] Care Team Providers Care Rubber Extrusion Machine Operator Name Role Phone Olman Mejía MD Primary Care Provider Pepito Dunne MD Primary Care Provider + Reason for Visit * Reason Onset Date Comments APPOINTMENT 09/04/2019 Encounter Details Date Type Department Care Team Description 09/04/2019 Telephone Allergy [facility] [address] [place] [phone] Kimberlee Conner PA-C APPOINTMENT Social History Tobacco Use Types Packs/Day Years [...] encounter Miscellaneous Notes * Telephone Encounter - Yecenia Palacios - 09/04/2019 2:10 PM EDT Patient made aware appointment will be audio visit * Telephone Encounter - Sandra Louis - 09/04/2019 1:38 PM EDT Please contact patient and advise her that her appointment will be done VIA audiovisit * Telephone Encounter - Kimberlee Conner PA-C - 09/04/2019 1:06 PM EDT Yes, I have her marked with a white dot for audio visit. I do not think patients have been called yet for that date, but her visit type can be changed to audio visit. Thank you. * Telephone Encounter - Yecenia Palacios - 09/04/2019 12:20 PM EDT Patient has appointment on 09/06/2019 with Kimberlee and is inquiring about a audio visit. documented in this encounter Plan of Treatment Not on file documented as of this encounter Visit Diagnoses Not on filedocumented in this encounter Care Teams Rubber Extrusion Machine Operator Relationship Specialty Start Date End Date Olman Mejía MD PCP - General Internal Medicine 12/23/14 12/27/21 Pepito Chapa MD [address] [place] [address] PCP - General Internal Medicine 12/28/21 documented as of this encounter
--- OUTSIDE RECORDS SUMMARY | 2024-08-06 16:02 | XMS_ITS | Encounter Summary ---
Author Organization [facility] Address [address] [place] [address] Care Team Providers Care Wellness Program Coordinator Name Role Phone Olman Mejía MD Primary Care Provider Pepito Dunne MD Primary Care Provider + Encounter Details Date Type Department Care Team Description 10/31/2015 Business Doc Medical Records [address] [place] [address] Abstract, Provider Social History Tobacco Use Types [...] on filedocumented in this encounter Care Teams Wellness Program Coordinator Relationship Specialty Start Date End Date Olman Mejía MD PCP - General Internal Medicine 12/23/14 12/27/21 Pepito Chapa MD [address] [place] [address] PCP - General Internal Medicine 12/28/21 documented as of this encounter
--- OUTSIDE RECORDS SUMMARY | 2024-08-06 16:02 | XMS_ITS | Encounter Summary ---
Author Organization [facility] Address [address] [facility] [place] [address] Care Team Providers Care Program Trainer Name Role Phone Olman Mejía MD Primary Care Provider Pepito Dunne MD Primary Care Provider + Reason for Visit * Reason Comments E-prescribe Rx Request Encounter Details Date Type Department Care Team Description 08/03/2016 Refill Adult Medicine [address] [address] Olman Mejía MD E-prescribe Rx Request Social [...] encounter Miscellaneous Notes * Telephone Encounter - Altagracia Mistry M.A. - 08/03/2016 10:11 AM EST Component Value Date CHOL 168 05/12/2016 LDL 91 05/12/2016 HDL 45 05/12/2016 TRIG 161 05/12/2016 SGOT 21 04/07/2015 SGPT 17 04/07/2015 * Telephone Encounter - Jl Meredith - 08/03/2016 7:53 AM EST Patient would like script to be: E-PRESCRIBED/FAXED TO PHARMACY WHEN WAS THE PATIENT'S LAST APPOINTMENT IN ADULT MEDICINE? 1416 WHEN WAS THE LAST TIME THE PATIENT SAW THEIR PCP? Same as above Does patient have an upcoming appointment? Yes 09-22-16 (THE MEDICATION REQUESTED IS ON THE MED LIST ABOVE) All of the medications requested were on the CURRENT MEDS list Did you check the Pharmacy information above?: YES Patient wants: 90 -day supply Is this a mail order prescription request ? NO Patients current insurance carrier is: [place] / Plan: MEDICARE-[employer] / Product Type: MEDICARE [id number] documented in this encounter Plan of Treatment Not on file documented as of this encounter Visit Diagnoses Not on filedocumented in this encounter Care Teams Program Trainer Relationship Specialty Start Date End Date Olman Mejía MD PCP - General Internal Medicine 12/23/14 12/27/21 Pepito Chapa MD [address] [place] [id number] PCP - General Internal Medicine 12/28/21 documented as of this encounter
--- OUTSIDE RECORDS SUMMARY | 2024-08-06 16:02 | XMS_ITS | Encounter Summary ---
Author Organization [facility] Address [address] [facility] [place] [address] Care Team Providers Care Lab Analyst Name Role Phone Olman Mejía MD Primary Care Provider Pepito Dunne MD Primary Care Provider + Encounter Details Date Type Department Care Team Description 03/01/2016 Marina Porter Report Medical Records [address] [phone] Aman Avalos MD Social History Tobacco Use Types Packs/Day [...] on filedocumented in this encounter Care Teams Lab Analyst Relationship Specialty Start Date End Date Olman Mejía MD PCP - General Internal Medicine 12/23/14 12/27/21 Pepito Chapa MD [address] [place], [place] [phone] PCP - General Internal Medicine 12/28/21 documented as of this encounter
--- OUTSIDE RECORDS SUMMARY | 2024-08-06 16:02 | XMS_ITS | Encounter Summary ---
Author Organization [facility] Address [address] [place] [address] Care Team Providers Care Director Hematology Name Role Phone Olman Mejía MD Primary Care Provider Pepito Dunne MD Primary Care Provider + Encounter Details Date Type Department Care Team Description 10/08/2016 Business Doc Medical Records [address] [place] [address] Abstract, Provider Social History Tobacco Use Types [...] on filedocumented in this encounter Care Teams Director Hematology Relationship Specialty Start Date End Date Olman Mejía MD PCP - General Internal Medicine 12/23/14 12/27/21 Pepito Chapa MD [address] [place] [address] PCP - General Internal Medicine 12/28/21 documented as of this encounter
--- OUTSIDE RECORDS SUMMARY | 2024-08-06 16:02 | XMS_ITS | Encounter Summary ---
Author Organization [facility] Address [address] [facility] [place] [address] Care Team Providers Care Actuarial Analyst Name Role Phone Olman Mejía MD Primary Care Provider Pepito Dunne MD Primary Care Provider + Reason for Visit * Reason Onset Date Comments Information Needed 03/08/2019 Encounter Details Date Type Department Care Team Description 03/08/2019 Telephone Adult Medicine [address] [address] Olman Mejía MD Information Needed Social History Tobacco Use Types Packs/Day Years [...] encounter Miscellaneous Notes * Telephone Encounter - Ada Lomeli - 03/08/2019 1:29 PM EDT FYI Pt will be seeing Dr Jo documented in this encounter Plan of Treatment Not on file documented as of this encounter Visit Diagnoses Not on filedocumented in this encounter Care Teams Actuarial Analyst Relationship Specialty Start Date End Date Olman Mejía MD PCP - General Internal Medicine 12/23/14 12/27/21 Pepito Chapa MD [address] [place] [address] [phone] PCP - General Internal Medicine 12/28/21 documented as of this encounter
--- OUTSIDE RECORDS SUMMARY | 2024-08-06 16:02 | XMS_ITS | Encounter Summary ---
Author Organization [facility] Address [address] [facility] [place] [address] Care Team Providers Care Book Solicitor Name Role Phone Olman Mejía MD Primary Care Provider Pepito Dunne MD Primary Care Provider + Reason for Visit * Reason Comments E-prescribe Rx Request Encounter Details Date Type Department Care Team Description 11/30/2015 Refill Adult Medicine [address] [address] Millicent Carr MD E-prescribe Rx Request Social History Tobacco [...] encounter Miscellaneous Notes * Telephone Encounter - Ryanne Linda - 12/01/2015 8:56 AM EDT Patient would like script to be: E-PRESCRIBED/FAXED TO PHARMACY WHEN WAS THE PATIENT'S LAST APPOINTMENT IN ADULT MEDICINE? 11/15/15 WHEN WAS THE LAST TIME THE PATIENT SAW THEIR PCP? 06/25/15 Does patient have an upcoming appointment? Yes 12/24/15 (THE MEDICATION REQUESTED IS ON THE MED LIST ABOVE) All of the medications requested were on the CURRENT MEDS list Did you check the Pharmacy information above?: YES Patient wants: 30 -day supply Is this a mail order prescription request ? NO Patients current insurance carrier is: Payor: MEDICARE-[employer] / Plan: MEDICARE-[employer] / Product Type: MEDICARE [id number] documented in this encounter Plan of Treatment Not on file documented as of this encounter Visit Diagnoses Not on filedocumented in this encounter Care Teams Book Solicitor Relationship Specialty Start Date End Date Olman Mejía MD PCP - General Internal Medicine 12/23/14 12/27/21 Pepito Chapa MD [address] [place] [phone] PCP - General Internal Medicine 12/28/21 documented as of this encounter
--- OUTSIDE RECORDS SUMMARY | 2024-08-06 16:02 | XMS_ITS | Encounter Summary ---
Author Organization [facility] Address [address] [place] [address] Care Team Providers Care Pocketbook Maker Name Role Phone Olman Mejía MD Primary Care Provider Pepito Dunne MD Primary Care Provider + Encounter Details Date Type Department Care Team Description 04/05/2017 Information Security Director Report Medical Records 4 [place] [address] Aman Avalos MD Social History Tobacco Use [...] on filedocumented in this encounter Care Teams Pocketbook Maker Relationship Specialty Start Date End Date Olman Mejía MD PCP - General Internal Medicine 12/23/14 12/27/21 Pepito Chapa MD [address] [place] [address] PCP - General Internal Medicine 12/28/21 documented as of this encounter
--- OUTSIDE RECORDS SUMMARY | 2024-08-06 16:02 | XMS_ITS | Encounter Summary ---
Author Organization [facility] Address [address] [facility] [place] [address] Care Team Providers Care Healthcare Consultant Name Role Phone Olman Mejía MD Primary Care Provider Pepito Dunne MD Primary Care Provider + Encounter Details Date Type Department Care Team Description 08/09/2016 [facility] Medical Records [address] [place] [address] Abstract, Provider Social History Tobacco Use Types [...] on filedocumented in this encounter Care Teams Healthcare Consultant Relationship Specialty Start Date End Date Olman Mejía MD PCP - General Internal Medicine 12/23/14 12/27/21 Pepito Chapa MD [address] [place] [address] PCP - General Internal Medicine 12/28/21 documented as of this encounter
--- OUTSIDE RECORDS SUMMARY | 2024-08-06 16:02 | XMS_ITS | Encounter Summary ---
Author Organization [facility] Address [address] [facility] [place] [address] Care Team Providers Care Substance Abuse Services Director Name Role Phone Olman Mejía MD Primary Care Provider Pepito Dunne MD Primary Care Provider + Encounter Details Date Type Department Care Team Description 04/26/2017 [facility] [address] [place] [address] Abstract, Provider Social History Tobacco Use Types [...] on filedocumented in this encounter Care Teams Substance Abuse Services Director Relationship Specialty Start Date End Date Olman Mejía MD PCP - General Internal Medicine 12/23/14 12/27/21 Pepito Chapa MD [address] [place] [id number] PCP - General Internal Medicine 12/28/21 documented as of this encounter
--- OUTSIDE RECORDS SUMMARY | 2024-08-06 16:02 | XMS_ITS | Encounter Summary ---
Author Organization [facility] Address [address] [facility] [place] [address] Care Team Providers Care Impregnator Name Role Phone Olman Mejía MD Primary Care Provider Pepito Dunne MD Primary Care Provider + Encounter Details Date Type Department Care Team Description 11/22/2018 Business Doc Medical Records [address] [place], [place] [phone] Abstract, Provider Social History Tobacco Use Types [...] on filedocumented in this encounter Care Teams Impregnator Relationship Specialty Start Date End Date Olman Mejía MD PCP - General Internal Medicine 12/23/14 12/27/21 Pepito Chapa MD [address] [place] [phone] PCP - General Internal Medicine 12/28/21 documented as of this encounter
--- OUTSIDE RECORDS SUMMARY | 2024-08-06 16:03 | XMS_ITS | Encounter Summary ---
Author Organization [facility] Address [address] [place] [address] Care Team Providers Care Plug Assembler Name Role Phone Joey Nicholas MD Primary Care Provider Olman Avalos MD Primary Care Provider Pepito Dunne MD Primary Care Provider + Encounter Details Date Type Department Care Team Description 05/24/2014 Transfer Records Medical Records [address] [place] [address] Abstract, Provider Social History Tobacco Use Types [...] on filedocumented in this encounter Care Teams Plug Assembler Relationship Specialty Start Date End Date Joey Nicholas MD PCP - General Internal Medicine 05/23/14 12/22/14 Olman Mejía MD PCP - General Internal Medicine 12/23/14 12/27/21 Pepito Chapa MD [address] [place] [address] PCP - General Internal Medicine 12/28/21 documented as of this encounter
--- OUTSIDE RECORDS SUMMARY | 2024-08-06 16:03 | XMS_ITS | Encounter Summary ---
Author Organization [facility] Address [address] [place] [address] Care Team Providers Care Wafer Cleaner Name Role Phone Joey Nicholas MD Primary Care Provider Olman Avalos MD Primary Care Provider Pepito Dunne MD Primary Care Provider + Encounter Details Date Type Department Care Team Description 11/20/2014 Automatic Pattern Edger Report Medical Records [address] [place] [address] Riya Orellana MD Social History Tobacco Use Types Packs/Day [...] on filedocumented in this encounter Care Teams Wafer Cleaner Relationship Specialty Start Date End Date Joey Nicholas MD PCP - General Internal Medicine 05/23/14 12/22/14 Olman Mejía MD PCP - General Internal Medicine 12/23/14 12/27/21 Pepito Chapa MD [address] [place], [place] [phone] PCP - General Internal Medicine 12/28/21 documented as of this encounter
--- OUTSIDE RECORDS SUMMARY | 2024-08-06 16:03 | XMS_ITS | Encounter Summary ---
Author Organization [facility] Address [address] [facility] [place] [address] Care Team Providers Care Container Crane Operator Name Role Phone Olman Mejía MD Primary Care Provider Pepito Dunne MD Primary Care Provider + Encounter Details Date Type Department Care Team Description 10/06/2017 Ground Crew Lines Person Report Medical Records [address] [phone] Aman Avalos MD Social History Tobacco Use [...] on filedocumented in this encounter Care Teams Container Crane Operator Relationship Specialty Start Date End Date Olman Mejía MD PCP - General Internal Medicine 12/23/14 12/27/21 Pepito Chapa MD [address] [place] [address] PCP - General Internal Medicine 12/28/21 documented as of this encounter
--- OUTSIDE RECORDS SUMMARY | 2024-08-06 16:03 | XMS_ITS | Encounter Summary ---
Author Organization [facility] Address [address] [place] [address] Care Team Providers Care Box Car Loader Name Role Phone Olman Mejía MD Primary Care Provider Pepito Dunne MD Primary Care Provider + Encounter Details Date Type Department Care Team Description 03/26/2015 [place] Weigher Report Medical Records [address] [phone] Riya Orellana MD Social History Tobacco Use [...] on filedocumented in this encounter Care Teams Box Car Loader Relationship Specialty Start Date End Date Olman Mejía MD PCP - General Internal Medicine 12/23/14 12/27/21 Pepito Chapa MD [address] [place], [place] [phone] PCP - General Internal Medicine 12/28/21 documented as of this encounter
--- OUTSIDE RECORDS SUMMARY | 2024-08-06 16:03 | XMS_ITS | Encounter Summary ---
Author Organization [facility] Address [address] [facility] [place] [address] Care Team Providers Care Aircraft Cleaner Name Role Phone Joey Nicholas MD Primary Care Provider Olman Avalos MD Primary Care Provider Pepito Dunne MD Primary Care Provider + Encounter Details Date Type Department Care Team Description 09/13/2014 Business Doc Medical Records [address] [place] [address] Abstract, Provider Social History Tobacco Use Types [...] on filedocumented in this encounter Care Teams Aircraft Cleaner Relationship Specialty Start Date End Date Joey Nicholas MD PCP - General Internal Medicine 05/23/14 12/22/14 Olman Mejía MD PCP - General Internal Medicine 12/23/14 12/27/21 Pepito Chapa MD [address] [place] [address] PCP - General Internal Medicine 12/28/21 documented as of this encounter
--- OUTSIDE RECORDS SUMMARY | 2024-08-06 16:03 | XMS_ITS | Encounter Summary ---
Author Organization [facility] Address [address] [facility] [address] Care Team Providers Care Third Grade Teacher Name Role Phone Olman Mejía MD Primary Care Provider Pepito Dunne MD Primary Care Provider + Encounter Details Date Type Department Care Team Description 07/19/2017 Hospital Medical Records [address] [place] [address] Iban Pereira DO Social History Tobacco Use Types Packs/Day Years [...] on filedocumented in this encounter Care Teams Third Grade Teacher Relationship Specialty Start Date End Date Olman Mejía MD PCP - General Internal Medicine 12/23/14 12/27/21 Pepito Chapa MD [address] [place] [address] PCP - General Internal Medicine 12/28/21 documented as of this encounter
--- OUTSIDE RECORDS SUMMARY | 2024-08-06 16:03 | XMS_ITS | Encounter Summary ---
Author Organization [facility] Address [address] [facility] [place] [address] Care Team Providers Care Milk Tester Name Role Phone Joey Nicholas MD Primary Care Provider Olman Avalos MD Primary Care Provider Pepito Dunne MD Primary Care Provider + Encounter Details Date Type Department Care Team Description 08/02/2014 Director Of Strategic Communications Report Medical Records [address] [place] [phone] Aman Avalos MD Social History Tobacco Use [...] on filedocumented in this encounter Care Teams Milk Tester Relationship Specialty Start Date End Date Joey Nicholas MD PCP - General Internal Medicine 05/23/14 12/22/14 Olman Mejía MD PCP - General Internal Medicine 12/23/14 12/27/21 Pepito Chapa MD [address] [place], [place] [phone] PCP - General Internal Medicine 12/28/21 documented as of this encounter
--- OUTSIDE RECORDS SUMMARY | 2024-08-06 16:03 | XMS_ITS | Encounter Summary ---
Author Organization [facility] Address [address] [facility] [place] [address] Care Team Providers Care Broiler Supervisor Name Role Phone Joey Nicholas MD Primary Care Provider Olman Avalos MD Primary Care Provider Pepito Dunne MD Primary Care Provider + Encounter Details Date Type Department Care Team Description 11/07/2014 DIVISION HUMAN RESOURCES MANAGER/[employer] Report Medical Records [address] [place] [id number] Abstract, Provider Social History Tobacco Use Types [...] on filedocumented in this encounter Care Teams Broiler Supervisor Relationship Specialty Start Date End Date Joey Nicholas MD PCP - General Internal Medicine 05/23/14 12/22/14 Olman Meíja MD PCP - General Internal Medicine 12/23/14 12/27/21 Pepito Chapa MD [address] [place], [place] [phone] PCP - General Internal Medicine 12/28/21 documented as of this encounter
--- OUTSIDE RECORDS SUMMARY | 2024-08-06 16:03 | XMS_ITS | Clinical Summary ---
Author Organization [facility] Address [address] [place] [address] Care Team Providers Care Hr Consultant Name Role Phone Unavailable Primary Care Provider Unavailabl e Social History Tobacco Use Types Packs/Day Years Used Date Smoking Tobacco: Never Assessed Comments Unknown Sex and Gender Information Value Date Recorded Sex Assigned at Not on file Legal Sex Female 1:22 AM EST Gender Identity Not on file Sexual Orientation Not on file Plan of Treatment Not on file
--- OUTSIDE RECORDS SUMMARY | 2024-08-06 16:03 | XMS_ITS | Encounter Summary ---
Author Organization [facility] Address [address] [facility] [place] [address] Care Team Providers Care Shift Leader Name Role Phone Olman Mejía MD Primary Care Provider Pepito Dunne MD Primary Care Provider + Reason for Visit * Reason Comments E-prescribe Rx Request Encounter Details Date Type Department Care Team Description 07/15/2017 Refill Adult Medicine [address] [address] Olman Mejía MD E-prescribe Rx Request Social [...] encounter Miscellaneous Notes * Telephone Encounter - Karolina Hutchins - 07/15/2017 10:14 AM EST Patient would like script to be: E-PRESCRIBED/FAXED TO PHARMACY WHEN WAS THE PATIENT'S LAST APPOINTMENT IN ADULT MEDICINE? 06/14/2017 WHEN WAS THE LAST TIME THE PATIENT SAW THEIR PCP? 02/11/2017 Does patient have an upcoming appointment? No-unable to reach left [facility] to call for appointment due to refill request. Appt due 10/12/2017 (THE MEDICATION REQUESTED IS ON THE MED LIST ABOVE) All of the medications requested were on the CURRENT MEDS list Did you check the Pharmacy information above?: YES Patient wants: 30 -day supply Is this a mail order prescription request ? NO Patients current insurance carrier is: Pay[place]: [place] / Plan: MEDICARE-[employer] / Product Type: MEDICARE [id number] documented in this encounter Plan of Treatment Not on file documented as of this encounter Visit Diagnoses Not on filedocumented in this encounter Care Teams Shift Leader Relationship Specialty Start Date End Date Olman Mejía MD PCP - General Internal Medicine 12/23/14 12/27/21 Pepito Chapa MD [address] [place] [phone] PCP - General Internal Medicine 12/28/21 documented as of this encounter
--- OUTSIDE RECORDS SUMMARY | 2024-08-06 16:03 | XMS_ITS | Encounter Summary ---
Author Organization [facility] Address [address] [place] [address] Care Team Providers Care Plug Paster Name Role Phone Olman Mejía MD Primary Care Provider Pepito Dunne MD Primary Care Provider + Encounter Details Date Type Department Care Team Description 11/16/2017 Business Doc Medical Records [address] [place], [place] [phone] Abstract, Provider Social History Tobacco Use Types [...] filedocumented in this encounter Care Teams Plug Paster Relationship Specialty Start Date End Date Olman Mejía MD PCP - General Internal Medicine 12/23/14 12/27/21 Pepito Chapa MD [address] [place] [address] PCP - General Internal Medicine 12/28/21 documented as of this encounter
--- OUTSIDE RECORDS SUMMARY | 2024-08-06 16:03 | XMS_ITS | Encounter Summary ---
Author Organization [facility] Address [address] [place] [address] Care Team Providers Care Blacksmith Farm Name Role Phone Adam Swartz MD Primary Care Provider Unavailable Joey Nicholas MD Primary Care Provider Unavail able Olman Mejía MD Primary Care Provider Pepito Dunne MD Primary Care Provider + Encounter Details Date Type Department Care Team Description 04/19/2014 Orders Only Radiology - [address] [address] Faby Smith MD Malignant neoplasm of corpus uteri, except isthmus (Primary Dx) Social History Tobacco Use Types Packs/Day Years [...] documented as of this encounter Visit Diagnoses Diagnosis Malignant neoplasm of corpus uteri, 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
--- OUTSIDE RECORDS SUMMARY | 2024-08-06 16:04 | XMS_ITS ---
Author Organization [facility] Address [address] [place] [address] Care Team Providers Care Element Setter Name Role Phone Pepito Chapa Primary Care Provider Unav ailable Delia Disla Unavailable [phone] Allergies Allergen (clinical drug ingredient) Drug/Non Drug Allergy documented on EMR Reaction Allergy Type Onset Date Status aspirin Aspirin Heart Dr said do not take Drug Allergy Active Dust Mites Trouble Breathing Allergy A ctive Mold Trouble breathing Allergy Ac tive REASON FOR VISIT At Risk Footcare, Ingrown Nail Medications Medication SIG (Take, Route, Frequency, Duration) Notes Start Date End Date Status Ciclopirox Olamine 0.77 % 1 application Externally Twice a day to skin of feet including between the toes for 30 days Active Extra Depth Orthopedic Shoes (1 Pair) with Customized Heat Molded Multidensity Innersoles (3 Pair) as directed Dx: NIDDM (E11.9), Hammertoe Foot Deformity (M20.41,M20.42), Preulcerative Skin Lesion(s) (L85.1) 09/06/2023 Active Acetaminophen 650 MG/20.3ML as directed Orally every 8 hours as needed Active ACT Fluoride Active Cephalexin 500 MG 1 capsule Orally every 12 hrs for 7 day(s) 05/29/2024 Active Atorvastatin Calcium 20 MG 1 tablet Orally Once a day for 30 day(s) Active [place] Saline Nasal Gel - as directed Nasally Active Citrucel - as directed Orally Active Clotrimazole 1 % 1 application Externally Twice a day for 14 day(s) Active diazePAM 5 MG 1 tablet as needed Orally Once a day Active Flunisolide 25 MCG/ACT (0.025%) as directed Nasally Active Gabapentin 300 MG 1 capsule Orally Onc e a day for 30 day(s) Active Hydrocort-Pramoxine (Perianal) 2.5-1 % 1 application Externally Three times a day Active Doxepin HCl 10 MG 1 capsule at bedtime Orally Once a day for 30 day(s) Active Fish Oil 1000 MG 1 capsule Orally Onc e a day for 30 day(s) Active Lisinopril 5 MG 1 tablet Orally Once a day for 30 day(s) Active Ketoconazole 2 % 1 application Externally Once a day for 14 day(s) Active Latanoprost 0.005 % 1 drop into affected eye in the evening Ophthalmic Once a day Active Hydrocortisone 2.5 % 1 application Externally Once a day Active PARoxetine HCl 10 MG 1 tablet in the morning Orally Once a day for 30 day(s) Active Tretinoin 0.025 % 1 application in the evening to face Externally Once a day Active Vitamin D Active Pradaxa 150 MG 1 capsule Orally Twice a day for 30 day(s) Active Refresh Optive Advanced Active Sotalol HCl 80 MG 1 tablet Orally ever y 12 hrs for 30 day(s) Active Ketoconazole Oral pill Active Social History Tobacco Use: Social History Observation Description Date Details (start date - stop date) Never Smoker NA - NA Tobacco Use/Smoking Question Answer Notes Are you a: nonsmoker Additional Findings: Tobacco Non-User Current no n-smoker Tobacco use other than smoking: Question Answer Notes Are you an other tobacco user? No Vital Signs Height 5 ft 3 in in 06/12/2024 Weight 195 lbs 06/12/2024 BMI 34.54 kg/m2 06/12/2024 Blood pressure systolic 133 mm Hg 06/12/19 25 Blood pressure diastolic 80 mm Hg 025 Encounters Encounter Location Date Provider Diagnosis [facility] [address] [place] [address] 06/12/2024 Delia Disla Type 2 diabetes mellitus without complication, without long-term current use of insulin E11.9 ; Ingrown nail L60.0 ; Tinea unguium B35.1 ; Pain in right toe(s) M79.674 and Pain in left toe(s) M79.675 Assessments Encounter Date Diagnosis (ICD Code) Assessment Notes Treatment Notes Treatment Clinical Notes Section Notes 06/12/2024 Type 2 diabetes mellitus without complication, without long-term current use of insulin (ICD-10 - E11.9) 06/12/2024 Ingrown nail (ICD-10 - L60.0) 06/12/2024 Tinea unguium (ICD-10 - B35.1) 06/12/2024 Pain in right toe(s) (ICD-10 - M79.674) 06/12/2024 Pain in left toe(s) (ICD-10 - M79.675) Plan Of Treatment Next Appt Details Follow Up: 2 Months, Reason: Provider Name:Delia montague, 08/21/2024 03:30:00 PM, [address] [place] [address], [phone], Procedure Notes * Category Sub-Category Detail Notes Nail Avulsion Procedure A fine sterile e levator was placed between the eponychium, nail fold, and nail plate to separate the structures. A sterile nail splitter, and/or sterile 316 blade, was then used to longitudinally section the nail along its entire length through the eponychium to the area under the nail fold. The offending portion of nail was from the nail bed with a rolling action and then removed with a hemostat. No underlying bone was identified. There was minimal bleeding as hemostasis was achieved through the temporary use of either a digital tourniquet or the aforementioned local with epinephrine. A bacitracin sterile dressing was applied. Local wound aftercare instructions were discussed and dispensed. The patient was informed of both conservative and future surgical procedures to prevent recurrence. Tylenol or Motrin was recommended for pain or discomfort (85529) Anesthesia 3cc of 1 percent Lid ocaine Plain local anesthesic utilizing aseptic technique Location Medial nail border, TA Debride Nail 6-10 Nail debridement Due to the cl inical pathology outlined in the exam findings, performance of this nail treatment is medically necessary as its management by an unskilled/untrained nonprofessional would put this patients foot and overall health at risk. Therefore, debridement to affected nail(s), as described in exam (T1, T2, T3, T4, T5, T6, T7, T8, T9, ), was performed exclusively by the physician of record to reduce/remove overall nail length, girth, thickness, subungual debris, and necrotic tissue, by manual and/or electrical means through the use of a nail nipper and/or dremel-type mud grinder, to a more viable healthy nail plate or bed tissue 6-10 nails in total. Silver nitrate was used for any petechial bleeding as necessary. Definitive antifungal treatment options, both pharmaceutical and surgical, have been reviewed and discussed with the patient. The patient solely prefers the use of intermittent/as needed professional debridement services for their nail condition and understands the need for additional periodic treatments to maintain effectiveness in symptomatic relief - 52674 Progress Notes * Vilma PISANOanceDOB:1940 (83 yo F)Acc No.[id number]:06/12/2024 Progress Note Patient:?Jessenia PISANO Provider:?Delia Disla DPM :1940???Age:83 Y???Sex:Female D ate:06/12/2024 Address:[address] [place] [address] Pcp:Pepito Chapa Subjective: * Chief Complaints: * ???At Risk FootcareIngrown N ail * HPI: ???At Risk footcare:?Pt States Last PCP Visit:?Date?03/28/2024 ???Ingrown toenail:?Location:?Great toe, Left foot.?Treatments:?antibiotics? Keflex.? * ROS:?General/Constitutional:?Nausea?denies, denies, denies.?Vomiting?denies, denies, denies.?Hunger Thirst?admits, admits, admits.?Loss appetite?denies, denies, denies.?Chills?denies, denies, denies.?Fatigue?admits, admits, admits.?Fever?denies, denies, denies.?Night Sweats?denies, denies, denies.?Unexplained weight loss?denies, denies, denies.?Unexplained weight gain?denies, denies, denies.?HEENTM:?Dentures?denies, denies, denies.?Dizziness?denies, denies, denies.?Glasses/contacts?denies, denies, denies.?Retinopathy?denies, denies, denies.?Blurred/double vision?denies, denies, denies.?TMJ?denies, denies, denies.?Discharge/drainage?denies, denies, denies.?Implants?denies, denies, denies.?Sore throat?denies, denies, denies.?Dental implants?denies, denies, denies.?Hard of hearing ?denies, denies, denies.?Difficulty chewing/swallowing/speaking denies, denies, denies.?Nose bleeds?denies, denies, denies.?Sore mouth?denies, denies, denies.?Respiratory:?On Oxygen?denies, denies, denies.?Pneumonia/pleurisy?denies, denies, denies.?Bronchitis?denies, denies, denies.?Emphysema?denies, denies, denies.?Coughing?denies, denies, denies.?Cough blood?denies, denies, denies.?Shortness of breath?denies, denies, denies.?Wheezing?denies, denies, denies.?Cardiovascular:?Pacemaker?admits, admits, admits.?MVP?denies, denies, denies.?WPW?denies, denies, denies.?CHF?admits, admits, admits.?Heart attack?admits, admits, admits.?Septal defect?denies, denies, denies.?Rapid beat denies, denies, denies.?Chest pain ?denies, denies, denies.?Atrial Fib.?admits, admits, admits.?Murmur/Palpitations?denies, denies, denies.?Gastrointestinal:?Hemorrhoids?denies, denies, denies.?Stomach/Abdominal pain?denies, denies, denies.?Dark blood stool?denies, denies, denies.?Irritable bowel ?denies, denies, denies.?Constipation?admits, admits, admits.?Diarrhea?denies, denies, denies.?Hematology:?Swelling?denies, denies, denies.?Clots?denies, denies, denies.?Varicose Veins?denies, denies, denies.?Bruising?denies, denies, denies.?Bleeding problem?denies, denies, denies.?Genitourinary:?Blood urine?denies, denies, denies.?Frequent/Painfu/urination/bladder control?denies, denies, denies.?Kidney stones?denies, denies, denies.?Infection (UTI)?denies, denies, denies.?Nephropathy?denies, denies, denies. sex trans dis (STD)?denies, denies, denies.?Prostate?denies, denies, denies.?Musculoskeletal:?Hammertoes?denies, denies, denies.?Bunions?denies, denies, denies.?Back Pain?admits, admits, admits.?Muscle Cramps/ Resting?denies, denies, denies.?Muscle cramps / walking?denies, denies, denies.?Generalized aches and pains?admits, admits, admits.?Weakness?denies, denies, denies.?Integ.:?Conteh?denies, denies, denies.?Scars?denies, denies, denies.?Corns/calluses?denies, denies, denies.?Ingrown nails?admits, admits, admits.?Painful nails?denies, denies, denies.?Open Sores?denies, denies, denies.?Rashes?admits, admits, admits.?Neurologic:?Difficulty sleeping?denies, denies, denies.?Brain disorder?denies, denies, denies.?Numbness?denies, denies, denies.?Balance trouble?admits, admits, admits.?Confusion?denies, denies, denies.?Fainting/blackouts?denies, denies, denies.?Tingling?denies, denies, denies.?Tremors?denies, denies, denies.? * Medical History:? * Surgical History:?cardiac [...] than smoking?Are you an other tobacco user??No * Medications:?TakingKetsosa jones , Notes to Pharmacist: Oral pillVitamin D Tretinoin 0.025 % Cream 1 application in the evening to face Externally Once a day Sotalol HCl 80 MG Tablet 1 tablet Orally every 12 hrs Refresh Optive Advanced Pradaxa 150 MG Capsule 1 capsule Orally Twice a day PARoxetine HCl 10 MG Tablet 1 tablet in the morning Orally Once a day Lisinopril 5 MG Tablet 1 tablet Orally Once a day Latanoprost 0.005 % Solution 1 drop into affected eye in the evening Ophthalmic Once a day Ketoconazole 2 % Cream 1 application Externally Once a day Hydrocortisone 2.5 % Lotion 1 application Externally Once a day Hydrocort-Pramoxine (Perianal) 2.5-1 % Cream 1 application Externally Three times a day Gabapentin 300 MG Capsule 1 capsule Orally Once a day Flunisolide 25 MCG/ACT (0.025%) Solution as directed Nasally Fish Oil 1000 MG Capsule 1 capsule Orally Once a day Doxepin HCl 10 MG Capsule 1 capsule at bedtime Orally Once a day diazePAM 5 MG Tablet 1 tablet as needed Orally Once a day Clotrimazole 1 % Cream 1 application Externally Twice a day Citrucel - Powder as directed Orally [place] Saline Nasal Gel - Swab as directed Nasally Atorvastatin Calcium 20 MG Tablet 1 tablet Orally Once a day ACT Fluoride Acetaminophen 650 MG/20.3ML Suspension as directed Orally , Notes to Pharmacist: every 8 hours as neededExtra Depth Orthopedic Shoes (1 Pair) with Customized Heat Molded Multidensity Innersoles (3 Pair) as directed Dx: NIDDM (E11.9), Hammertoe Foot Deformity (M20.41,M20.42), Preulcerative Skin Lesion(s) (L85.1) Ciclopirox Olamine 0.77 % Cream 1 application Externally Twice a day to skin of feet including between the toes Cephalexin 500 MG Capsule 1 capsule Orally every 12 hrs Medication List reviewed and reconciled with the patientTaking Ketoconazole , Notes to Pharmacist: Oral pillTaking Vitamin D Taking Tretinoin 0.025 % Cream 1 application in the evening to face Externally Once a day Taking Sotalol HCl 80 MG Tablet 1 tablet Orally every 12 hrs Taking Refresh Optive Advanced Taking Pradaxa 150 MG Capsule 1 capsule Orally Twice a day Taking PARoxetine HCl 10 MG Tablet 1 tablet in the morning Orally Once a day Taking Lisinopril 5 MG Tablet 1 tablet Orally Once a day Taking Latanoprost 0.005 % Solution 1 drop into affected eye in the evening Ophthalmic Once a day Taking Ketoconazole 2 % Cream 1 application Externally Once a day Taking Hydrocortisone 2.5 % Lotion 1 application Externally Once a day Taking Hydrocort-Pramoxine (Perianal) 2.5-1 % Cream 1 application Externally Three times a day Taking Gabapentin 300 MG Capsule 1 capsule Orally Once a day Taking Flunisolide 25 MCG/ACT (0.025%) Solution as directed Nasally Taking Fish Oil 1000 MG Capsule 1 capsule Orally Once a day Taking Doxepin HCl 10 MG Capsule 1 capsule at bedtime Orally Once a day Taking diazePAM 5 MG Tablet 1 tablet as needed Orally Once a day Taking Clotrimazole 1 % Cream 1 application Externally Twice a day Taking Citrucel - Powder as directed Orally Taking [place] Saline Nasal Gel - Swab as directed Nasally Taking Atorvastatin Calcium 20 MG Tablet 1 tablet Orally Once a day Taking ACT Fluoride Taking Acetaminophen 650 MG/20.3ML Suspension as directed Orally , Notes to Pharmacist: every 8 hours as neededTaking Extra Depth Orthopedic Shoes (1 Pair) with Customized Heat Molded Multidensity Innersoles (3 Pair) as directed Dx: NIDDM (E11.9), Hammertoe Foot Deformity (M20.41,M20.42), Preulcerative Skin Lesion(s) (L85.1) Taking Ciclopirox Olamine 0.77 % Cream 1 application Externally Twice a day to skin of feet including between the toes Taking Cephalexin 500 MG Capsule 1 capsule Orally every 12 hrs Medication List reviewed and reconciled with the patient * Allergies:?Aspirin: Heart said do not takeMold: Trouble breathingDust Mites: Trouble Breathingyes[Allergies Verified] Objective: * Vitals:?Ht: 5 ft 3 in, Wt: 1 95, BMI: 34.54, Shoe size: 10.5-11, BP: 133/80 mm Hg, BS: not taken, Ht-cm: 160.02 cm, Wt-k.45 kg. * ???Past Orders: ???Lab:HEMOGLOBIN A1C (GLYCO HEMOGLOBIN) (Order Date - 11/07/2023) (Collection Date & Time - 11/07/2023 01:13 PM) ? Value Reference Range ?HEMOGLOBIN A1C % (HH) 6.0 * Examination: ???Ophthalmology Referral: ?DIABETES EYE EXAM?Procedure Performed:?Yes ?Date of Exam Performed?09/04/2024 ?Findings of Diabetic Eye Exam:?no retinopathy?CQM Exceptions:: ?Hemoglobin A1c not performed?Reason:?No reason specified?General Examination: ?GENERAL APPEARANCE:?Reveals a pleasant, alert, well-nourished, well- developed, well hydrated individual, who demonstrates proper attention to hygiene/body habitus, and is in no acute distress, Pt serves as own?historian for office visit today.?ORIENTED:?person, place, and time.?FOOT EXAM:?Lower Extremity Neurological Exam performed:?Yes ?Visual exam of foot performed:?Yes ?Date?06/12/2024 ?Footwear Evaluation?Footwear Evaluation performed:?Yes?Neurological: ?SENSORY:?Neurological exam reveals intact sensorium, pain sensation [...] denies, anesthesia, burning, paresthesia, tingling, B/L.?Vascular: ?DP PULSES (B):?3/4, B/L.?PT PULSES (B):?3/4, B/L.?CAPILLARY FILL TIME:?immediate, all digits, B/L.?TROPHIC CONDITION-TEXTURE/ELASTICITY/TURGOR/HAIR GROWTH (B):?normal, B/L.?TEMPERTURE GRADIENT (C):?warm to cool, proximal to distal, B/L.?PIGMENTATION:?normal, B/L.?EDEMA (C):?absent, B/L.?Dermatologic: ?SKIN FINDINGS:?Skin exam reveals normal color, texture, elasticity, and turgor. There are no masses, nor excrescences. The interspaces are clear, B/L.?Orthopedic: ?MUSCLE STRENGTH:?5/5 all groups in a [...] malodorous subungual debris, with pain on palpation ,T1, T2, T3, T4, T5, T6, T7, T8, T9.?Ingrown Nail: ?INSPECTION:?Reveals nail incurvation, pain on palpation, groove hypertrophy, Medial nail border, TA, There is evidence of surrounding periungual tissue erythema.? Assessment: * Assessment: 1.?Ingrown nail - L60.0 (Elana annette)???2.?Type 2 diabetes mellitus without complication, without long-term current use of insulin - E11.9???3.?Tinea unguium - B35.1???4.?Pain in right toe(s) - M79.674???5.?Pain in left toe(s) - M79.675??? Plan: * Treatment: * Procedures:?Debride Nail 6-10:?Nail debridement?Due to the clinical pathology outlined in the exam findings, performance of this nail treatment is medically necessary as its management by an unskilled/untrained nonprofessional would put this patients foot and overall health at risk. Therefore, debridement to affected nail(s), as described in exam (T1, T2, T3, T4, T5, T6, T7, T8, T9, ), was performed exclusively by the physician of record to reduce/remove overall nail length, girth, thickness, subungual debris, and necrotic tissue, by manual and/or electrical means through the use of a nail nipper and/or dremel-type mud grinder, to a more viable healthy nail plate or bed tissue 6- 10 nails in total. Silver nitrate was used for any petechial bleeding as necessary. Definitive antifungal treatment options, both pharmaceutical and surgical, have been reviewed and discussed with the patient. The patient solely prefers the use of intermittent/as needed professional debridement services for their nail condition and understands the need for additional periodic treatments to maintain effectiveness in symptomatic relief - 66816.?Nail Avulsion:?Location?Medial nail border, TA.?Anesthesia?3cc of 1 percent Lidocaine Plain local anesthesic utilizing aseptic technique.?Procedure?A fine sterile elevator was placed between the eponychium, nail fold, and nail plate to separate the structures. A sterile nail splitter, and/or sterile 316 blade, was then used to longitudinally section the nail along its entire length through the eponychium to the area under the nail fold. The offending portion of nail was from the nail bed with a rolling action and then removed with a hemostat. No underlying bone was identified. There was minimal bleeding as hemostasis was achieved through the temporary use of either a digital tourniquet or the aforementioned local with epinephrine. A bacitracin sterile dressing was applied. Local wound aftercare instructions were discussed and dispensed. The patient was informed of both conservative and future surgical procedures to prevent recurrence. Tylenol or Motrin was recommended for pain or discomfort (02054).? * Procedure Codes:?75675 Avuls ion Plate, Modifiers: XS [id number] DEBRIDE NAIL, 6 OR MORE, Modifiers: XS * Follow Up:?2 Months * Images: * Sign off status: Completed true * Provider:?Delia Disla DPM Date:?12/2024 Generated for Norma asher/Amy/Refugio on:?08/06/2024 04:04 PM EST History and Physical Notes * HPI (History of Present Illness) Category Sub-Category Detail Notes Category Not es Ingrown toenail Location: Great toe, Left foot Treatments: antibiotics Keflex At Risk footcare Pt States Last PCP Visit: Date: 4 Examination Category Sub-Category Detail Notes Category Not es Ingrown Nail INSPECTION: Reveals nail inc urvation, pain on palpation, groove hypertrophy, Medial nail border, TA, There is evidence of surrounding periungual tissue erythema Neurological SENSORY: Neurological exa m reveals intact [...] paresthesia, tingling, B/L Dermatologic SKIN FINDINGS: Skin exam reveal s normal color, texture, elasticity, and turgor. There are no masses, nor excrescences. The interspaces are clear, B/L Orthopedic FOOTWEAR: worn, non-suppor tive, shoe [...] Lower Extremity Neurological Exa m performed:: Yes Visual exam of foot performed:: Yes Date: 06/12/2024 ORIENTED: person, place, and t edinson Footwear Evaluation Footwear Evaluation performe d:: Yes Ophthalmology Referral DIABETES EYE EXAM Procedure Perform ed:: Yes ?Date of Exam Performed: 09/04/2024 Findings of Diabetic Eye Exam:: no retin opathy Vascular DP PULSES (B): 3/4, B/L PT PULSES (B): 3/4, B/L CAPILLARY FILL TIME: immediate, all digi ts, B/L TEMPERTURE GRADIENT (C): warm to cool, p roximal to distal, B/L TROPHIC CONDITION-TEXTURE/ELASTICITY/TURGOR/HAIR GROWTH (B): normal, B/L EDEMA (C): absent, B/L PIGMENTATION: normal, B/L Nails NAILS are: Elongated, overg rown, dystrophic, lytic, greater than 3mm thick, discolored and friable with crumbly malodorous subungual debris, with pain on palpation ,T1, T2, T3, T4, T5, T6, T7, T8, T9 CQM Exceptions: Hemoglobin A1c not performed Reason:: No r qing specified
--- OUTSIDE RECORDS SUMMARY | 2024-08-06 16:04 | XMS_ITS | Encounter Summary ---
Author Organization [facility] Address [address] [place] [address] Care Team Providers Care Composer Teaching Artist Name Role Phone Unavailable Primary Care Provider Unavailabl e Encounter Details Date Type Department Care Team (Latest Contact Info) Description 08/19/2020 Abstract C CONVERSIONS Dental, Provider, DDS Social History Tobacco Use Types Packs/Day Years Used Date Smoking Tobacco: Never Assessed Comments Unknown Sex and Gender Information Value Date Recorded Sex Assigned at Female 04/05/2022 10:17 AM EDT Legal Sex Female 10:17 AM EDT Gender Identity Female 04/05/2022 10:17 AM EDT Sexual Orientation Straight 04/05/2022 10 :17 AM EDT documented as of this encounter Plan of Treatment Not on file documented as of this encounter Visit Diagnoses Not on filedocumented in this encounter
--- OUTSIDE RECORDS SUMMARY | 2024-08-06 16:04 | XMS_ITS ---
Author Organization [facility] Address [address] [place] [address] Care Team Providers Care Product Support Technician Name Role Phone Pepito Chapa Primary Care Provider Unav ailable Delia Disla Unavailable [phone] REASON FOR VISIT seen sooner Encounters Encounter Location Date Provider Diagnosis [address] [address] 06/29/2024 Delia Disla Plan Of Treatment Next Appt Details Provider Name:Delia montague, 08/21/2024 03:30:00 PM, [address] [place] [address], [phone], Progress Notes * Ilan PISANOOB:1940 (83 yo F)Acc No.[id number]:06/29/2024 Progress Note Patient:?Jessenia PISANO Provider:?Delia Disla DPM :1940???Age:83 Y???Sex:Female D ate:06/29/2024 Address:[address] [place] [address], [address], [facility] Pcp:Pepito Chapa Subjective: * Chief Complaints: * ???1. Seen sooner. * Medical History:? Objective: * Vitals:? Assessment: Plan: * Treatment: * Images: * The named appointment provid er may or may not be the originator of this progress note, and it is not deemed complete until electronically signed by the appointment provider. Sign off status: Pending * Provider:?Delia Disla DPM Date:? Generated for Norma asher/Amy/Refugio on:?08/06/2024 04:04 PM EST
--- OUTSIDE RECORDS SUMMARY | 2024-08-06 16:04 | XMS_ITS | Clinical Summary ---
Author Organization [employer] Address [address] [facility] [address] [place] [address] Care Team Providers Care Application Systems Engineer Name Role Phone Unavailable Primary Care Provider Unavailabl e Allergies Active Allergy Reactions Criticality Noted Date Comments Lactose 07/02/2019 Milk (Cow) 08/19/2020 Penicillins Rash Low 06/27/2006 Medications atorvastatin (Lipitor) 20 MG tablet Take 20 mg by mouth in the morning. 2 Active cholecalciferol (Vitamin D-3) 10 MCG (400 UNIT) tablet Take 1 tablet by mouth in the morning. Active clotrimazole (Lotrimin) 1 % cream Apply topically 2 times daily. 2 Active Pradaxa 150 MG capsule Take 150 mg by mouth 2 times daily. 3 Active diazePAM (Valium) 5 MG tablet TAKE 1/2 TABLET BY MOUTH TWICE A DAY NEEDED FOR ANXIETY 3 Active Diclofenac Sodium 1 % gel APPLY 2GM TOPICALLY 3 TIMES A DAY 3 Active dilTIAZem ER (Tiazac) 180 MG 24 hr capsule Take 1 capsule by mouth in the morning. 2 Active doxepin (SINEquan) 10 MG capsule TAKE 1 CAPSULE BY MOUTH EVERYDAY AT BEDTIME 3 Active furosemide (Lasix) 40 MG tablet Take 40 mg by mouth 2 times daily. 2 Active hydrocortisone 2.5 % cream APPLY TO AFFECTED AREA EVERY DAY 2 Active ketoconazole (NIZOral) 2 % cream APPLY TO AFFECTED AREA EVERY DAY 2 Active latanoprost (Xalatan) 0.005 % ophthalmic solution Administer 1 drop into both eyes at bedtime. 2 Active lisinopril 5 MG tablet Take 5 mg by mouth in the morning. 2 Active methylcellulose oral powder Take 1 packet by mouth. Active PARoxetine (Paxil) 10 MG tablet Take 10 mg by mouth in the morning. 3 Active sotalol (Betapace) 80 MG tablet Take 1 tablet by mouth 2 times daily. 2 Active sotalol AF (Betapace AF) 80 MG tablet Take 80 mg by mouth 2 times daily. 3 Active tretinoin (Retin-A) 0.025 % cream Apply small amount QHS on face 1 Active gabapentin (Neurontin) 100 MG capsule Take by mouth. Acti ve Social History Tobacco Use Types Packs/Day Years Used Date Smoking Tobacco: Never Smokeless Tobacco: Never Tobacco Cessation:Counseling Given: Not Answered Comments Unknown Sex and Gender Information Value Date Recorded Sex Assigned at Female 04/05/2022 10:17 AM EDT Legal Sex Female 10:17 AM EDT Gender Identity Female 04/05/2022 10:17 AM EDT Sexual Orientation Straight 04/05/2022 10 :17 AM EDT Last Filed Vital Signs Vital Sign Reading Time Taken Comments Blood Pressure 124/60 10/07/2023 2:57 PM EDT Pulse 65 10/07/2023 2:57 PM EDT Temperature - - Respiratory Rate - - Oxygen Saturation - - Inhaled Oxygen Concentration - - Weight - - Height - - Body Mass Index - - Plan of Treatment Health Maintenance Due Date Last Done Comments Dental X-Ray: Full Mouth 1940 Depression Screening 1940 Lipid Panel 1940 SDOH Screening 1942 Alcohol/Substance Use Screening 1954 Zoster Vaccines (1 of 2) 1992 RSV Patients and Patients Aged 60 years or older (1 - 1-dose 75+ series) 2017 COVID-19 Vaccine ( season) 2024 01/12/2023, 09/30/2021, 03/13/2021, Additional history exists Influenza Vaccine (#1) 2024 Dental Oral Exam 02/16/2024 08/15/2023, 07/27/2022 Dental Prophylaxis 04/09/2024 10/07/2023 Dental X-Ray: Bitewings 08/15/2024 08/15/2023, 07/27 Tobacco Screening 10/06/2024 10/07/2023 DTaP/Tdap/Td Vaccines (2 - Td or Tdap) 02/11/2027 02/11/2017 Pneumococcal Vaccine: 50+ Years Completed 10/06/2016, 09/11/2014 HIB Vaccines Aged Out No longer eligi ble based on patient's age to complete this topic HPV Vaccines Aged Out No longer eligi ble based on patient's age to complete this topic Hepatitis A Vaccines Aged Out No long er eligible based on patient's age to complete this topic Hepatitis B Vaccines Aged Out No long er eligible based on patient's age to complete this topic IPV Vaccines Aged Out No longer eligi ble based on patient's age to complete this topic Meningococcal Vaccine Aged Out No bethanie donnell eligible based on patient's age to complete this topic RSV under 20 months Aged Out No longe r eligible based on patient's age to complete this topic Rotavirus Vaccines Aged Out No longer eligible based on patient's age to complete this topic Procedures Procedure Name Priority Date/Time Associated Diagnosis Comments Full PROPHYLAXIS - ADULT Routine 024 3:00 PM EDT BITEWINGS - 4 RADIOGRAPHIC IMAGES Routine 08/15/2023 1:00 PM EDT PERIODIC ORAL EVALUATION - ESTABLISHED PATIENT Routine 08/15/2023 1:00 PM EDT from Last 3 Months or Most Recently Relevant to Health Maintenance Insurance DENTAL - HSN FULL (MEDICAID)
--- OUTSIDE RECORDS SUMMARY | 2024-08-06 16:04 | XMS_ITS | Encounter Summary ---
Author Organization [facility] Address [address] [place] [address] Care Team Providers Care Associate Accountant Name Role Phone Pepito Chapa MD Primary Care Pr ovider Encounter Details Date Type Department Care Team (Late st Contact Info) Description 07/13/2024 Telephone Adult Medicine [address] [address] Vijaya Pinto, RN Social History Tobacco Use Types Packs/Day Years Used Date Smoking Tobacco: Never Smokeless Tobacco: Never Alcohol Use Standard Drinks/Week Comments No 0 (1 standard drink = 0.6 oz pur e alcohol) Comments Unknown Sex and Gender Information Value Date Recorded Sex Assigned at Not on file Legal Sex Female 10:43 AM EST Gender Identity Not on file Sexual Orientation Not on file documented as of this encounter Progress Notes * Vijaya Pinto RN - 07/13/2024 2:08 PM EST Called and spoke to Mely. She was asked if pt needs a pre op appointment prior to her procedure on 07/20/23 r/t pacer batter change. If not and labs are ordered here how do they plan on accessing the results? She states she will send a message to the provider performing the procedure. She was given my direct extension and was told I will be available until 3:00 pm. * Pepito Chapa MD - 07/13/2024 2:01 PM EST Labs ordered but will wait for your response regarding if the patient needs Preop and how they planto obtain the lab results. thanks * Vijaya Pinto RN - 07/13/2024 12:59 PM EST Called [facility] at . The office was closed and I was connected with the answering service. Spoke with Mely, the application developer provider. She was informed pt is having a Pacer Battery Changed on 07/20/24 and was in the office for lab workshe needs drawn prior to procedure. Per Mely pt needs a PT/INR, BMP and CBC. documented in this encounter Plan of Treatment Upcoming Encounters Date Type Department Care Team (Late st Contact Info) Description 09/11/2024 1:00 PM EDT Office Visit Adult Medicine [address] [address] Delia Meza PA [address] [place] [address] Scheduled Orders Name Type Priority Associated Diagnoses Orde r Schedule Prothrombin time with INR Lab Routine Preop cardiovascular exam 1 Occurrences starting 07/13/2024 until 07/13/2025 Basic metabolic panel Lab Routine Preop cardiovascular exam 1 Occurrences starting 07/13/2024 until 07/13/2025 CBC and differential Lab Routine Preop cardiovascular exam Expected: 07/13/2024, Expires: 07/13/2025 documented as of this encounter Visit Diagnoses Diagnosis Preop cardiovascular exam- Primary Pre-operative cardiovascular examination documented in this encounter Care Teams Associate Accountant Relationship Specialty Start Date End Date Pepito Chapa MD [address] [place] [address] PCP - General Internal Medicine 12/28/21 documented as of this encounter
--- OUTSIDE RECORDS SUMMARY | 2024-08-06 16:04 | XMS_ITS | Encounter Summary ---
Author Organization [facility] Address [address] [facility] [place] [address] Care Team Providers Care Customer Engineering Specialist Name Role Phone Pepito Chapa MD Primary Care Provider + Encounter Details Date Type Department Care Team Description 10/27/2022 Alley Worker Report Medical Records [address] [place] [address] Pepito Chapa MD [address] [place] [phone] Social History Tobacco Use Types Packs/Day Years Used Date Smoking Tobacco: Never Smokeless Tobacco: Never Alcohol Use Standard Drinks/Week Comments No 0 (1 standard drink = 0.6 oz pur e alcohol) Sex Assigned at Date Recorded Not on file Job Start Date Occupation Industry Not on file Not on file Not on file COVID-19 Exposure Response Date Recorded In the last 10 days, have davina u been in contact with someone who was confirmed or suspected to have Coronavirus/COVID-19? No / Unsure 10/08/2022 1:55 PM EDT documented as of this encounter Plan of Treatment Not on file documented as of this encounter Visit Diagnoses Not on filedocumented in this encounter Care Teams Customer Engineering Specialist Relationship Specialty Start Date End Date Pepito Chapa MD [address] [place] [address] [phone] PCP - General Internal Medicine 12/28/21 documented as of this encounter
--- OUTSIDE RECORDS SUMMARY | 2024-08-06 16:04 | XMS_ITS | Encounter Summary ---
Author Organization [facility] Address [address] [facility] [place] [facility] [place] [address] Care Team Providers Care Analysis Mgr Name Role Phone Olman Mejía MD Primary Care Provider Pepito Dunne MD Primary Care Provider + Encounter Details Date Type Department Care Team Description 08/25/2015 Clam Dredger Report Medical Records [address] [place] [phone] Aman Avalos MD Social History Tobacco Use [...] on filedocumented in this encounter Care Teams Analysis Mgr Relationship Specialty Start Date End Date Olman Mejía MD PCP - General Internal Medicine 12/23/14 12/27/21 Pepito Chapa MD [address] [place], [place] [phone] PCP - General Internal Medicine 12/28/21 documented as of this encounter
--- OUTSIDE RECORDS SUMMARY | 2024-08-06 16:04 | XMS_ITS | Encounter Summary ---
Author Organization [facility] Address [address] [place] [address] Care Team Providers Care Public Address Systems Mechanic Name Role Phone Peptio Chapa MD Primary Care Provider + Encounter Details Date Type Department Care Team Description 07/27/2022 Telephone Radiology - [place] [address] [place] [address] Pepito Chapa MD [address] [place] [address] [phone] Social History Tobacco Use Types Packs/Day Years [...] encounter Miscellaneous Notes * Telephone Encounter - Hansa Reynoso - 07/27/2022 11:24 AM EST Pt does not want to schedule a bone density therefore the orders will be removed from our schedule.Thank you documented in this encounter Plan of Treatment Not on file documented as of this encounter Visit Diagnoses Not on filedocumented in this encounter Care Teams Public Address Systems Mechanic Relationship Specialty Start Date End Date Pepito Chapa MD [address] [place] [address] [phone] PCP - General Internal Medicine 12/28/21 documented as of this encounter
--- OUTSIDE RECORDS SUMMARY | 2024-08-06 16:04 | XMS_ITS ---
Author Organization [facility] Address Unknown Allergies, Adverse Reactions, Alerts Substance Reaction Status Noted Date Resolved Date Penicillins Anaphylaxis active 03/06/2014 Encounters Encounter Performer Performer Role Encounter Diagnoses Location Date Discharge - Discharged to home or self care - [facility] 03/06/2014 12:59 am EDT - 03/12/2014 05:06 pm EDT Immunizations Vaccine Date Influenza Pneumovax Dose 1 Social History
--- OUTSIDE RECORDS SUMMARY | 2024-08-06 16:05 | XMS_ITS | Encounter Summary ---
Author Organization [facility] Address [address] [place] [address] Care Team Providers Care Mercury Washer Name Role Phone Olman Mejía MD Primary Care Provider Pepito Dunne MD Primary Care Provider + Reason for Visit * Reason Onset Date Comments Advice 07/02/2020 Encounter Details Date Type Department Care Team Description 07/02/2020 Telephone Adult Medicine [address] [address] Olman Mejía MD Advice Social History Tobacco Use Types Packs/Day Years Used Date Smoking Tobacco: Never Smokeless Tobacco: Never Alcohol Use Standard Drinks/Week Comments No 0 (1 standard drink = 0.6 oz pur e alcohol) Sex Assigned at Date Recorded Not on file Job Start Date Occupation Industry Not on file Not on file Not on file COVID-19 Exposure Response Date Recorded In the last month, have you been in contact with someone who was confirmed or suspected to have Coronavirus / COVID-19? No / Unsure 06/09/2020 3:16 PM EST documented as of this encounter Miscellaneous Notes * Telephone Encounter - Amber Calvo M.A. - 07/02/2020 2:00 PM EST Message left for patient to return my call. Ext [phone] Re: message in Pt calls about COVID vaccine. documented in this encounter Plan of Treatment Not on file documented as of this encounter Visit Diagnoses Not on filedocumented in this encounter Care Teams Mercury Washer Relationship Specialty Start Date End Date Olman Mejía MD PCP - General Internal Medicine 12/23/14 12/27/21 Pepito Chapa MD [address] [place] [phone] PCP - General Internal Medicine 12/28/21 documented as of this encounter
--- OUTSIDE RECORDS SUMMARY | 2024-08-06 16:05 | XMS_ITS | Encounter Summary ---
Author Organization [facility] Address [address] [place] [address] Care Team Providers Care Make Up Operator Name Role Phone Pepito Chapa MD Primary Care Provider + Reason for Visit * Reason Onset Date Comments fatigue/malaise 01/23/2024 Encounter Details Date Type Department Care Team Description 01/23/2024 Telephone Triage [address] [place] [phone] Pepito Chapa MD [address] [place] [address] fatigue/malaise Social History Tobacco Use Types Packs/Day Years [...] encounter Miscellaneous Notes * Telephone Encounter - Ysabel Livingston R.N. - 01/26/2024 8:18 AM EDT I left a message for the patient to return my call. * Telephone Encounter - Ysabel Livingston R.N. - 01/23/2024 2:55 PM EDT Called and spoke with patient Pt with drops of bright red x 2 days from vaginal area Hx endometrial cancer,hysterectomy 2010 Pt has not seen BAND SAW MARKER in several years Denies any urinary sym Denies seeing blood in the toilet + blood after wiping Denies fever/chills Denies abd pain Denies dizziness Denies Cp/SPB + itchy vagina from sweating, admits to washing vagina with wash cloth ? Abrasion that might be bleeding Pt requesting to be seen * Telephone Encounter - Amanda Abida - 01/23/2024 11:03 AM EDT Symptoms patient is presenting: Patient states after urinating she found blood on her toilet paper - states she is feeling very weak - mentioned she has hx of endometrial cancer For ALL patients calling to schedule any appointment (routine, sick visit, follow up, consult, etc.) in the outpatient setting please ask the following questions: ?? Do you have fever of higher than 101, sore throat with difficulty swallowing or severe shortnessof breath? NO If YES to any of these above symptoms, send a message to triage and do not book. Red dot. If no, an audio or video visit should be booked. ?? Have you had close contact with someone with Coronavirus in the last 14 days? NO ?? Have you traveled abroad? NO ?? Have you traveled recently to another state outside of [place], [place], [place], [place], [place], [place], [place]? NO o If yes, did you quarantine for 14 days or have a negative covid test? NO If yes to any of the above, patient is not to be scheduled in office until after 14 day quarantine or negative covid test. If pain or injury related was it due to an accident at work or from a motor vehicle accident? NO If yes, gather 3rd constitution party insurance information Date of accident/Injury: n/a How long has patient had these symptoms?: 2 days PCP: Pepito Chapa [place] / Product Type: MEDICARE [id number] documented in this encounter Plan of Treatment Not on file documented as of this encounter Visit Diagnoses Not on filedocumented in this encounter Care Teams Make Up Operator Relationship Specialty Start Date End Date Pepito Chapa MD [address] [place] [phone] PCP - General Internal Medicine 12/28/21 documented as of this encounter
--- OUTSIDE RECORDS SUMMARY | 2024-08-06 16:05 | XMS_ITS ---
Author Organization [facility] Address [address] [place] [address] Care Team Providers Care Weatherization Operations Manager Name Role Phone Pepito Chapa Primary Care Provider Unav ailable Delia Disla Unavailable [phone] REASON FOR VISIT Bill Encounters Encounter Location Date Provider Diagnosis [address] [address] 07/25/2024 Delia Disla Plan Of Treatment Next Appt Details Provider Name:Delia montague, 08/21/2024 03:30:00 PM, [address] [place] [address], [phone], Progress Notes * Ilan PISANOOB:1940 (83 yo F)Acc No.[id number]:07/25/2024 Patient:?Jessenia PISANO :1940???Age:83 Y???Sex:Female Address:[address] [facility], [place] [address] * true * Date:? Generated for Bii lb/Amy/eTransmitting on:?08/06/2024 04:05 PM EST
--- OUTSIDE RECORDS SUMMARY | 2024-08-06 16:05 | XMS_ITS | Encounter Summary ---
Author Organization [facility] Address [address] [facility] [place] [address] Care Team Providers Care Automatic Data Processing Planner Name Role Phone Olman Mejía MD Primary Care Provider Pepito Dunne MD Primary Care Provider + Encounter Details Date Type Department Care Team Description 02/24/2018 Business Doc Medical Records [address] [place] [address] Abstract, Provider Social History Tobacco Use Types [...] on filedocumented in this encounter Care Teams Automatic Data Processing Planner Relationship Specialty Start Date End Date Olman Mejía MD PCP - General Internal Medicine 12/23/14 12/27/21 Pepito Chapa MD [address] [place] [phone] PCP - General Internal Medicine 12/28/21 documented as of this encounter
--- OUTSIDE RECORDS SUMMARY | 2024-08-06 16:05 | XMS_ITS | Encounter Summary ---
Author Organization [facility] Address [address] [facility] [place] [address] Care Team Providers Care Soaking Room Operator Name Role Phone Pepito Chapa MD Primary Care Provider + Encounter Details Date Type Department Care Team Description 06/09/2022 Telephone Adult Medicine [facility] [address] [place] [address] Pepito Chapa MD [address] [place] [address] [phone] Social History Tobacco Use Types Packs/Day Years [...] suspected to have Coronavirus/COVID-19? No / Unsure 06/09/2022 12:34 PM EST documented as of this encounter Plan of Treatment Not on file documented as of this encounter Visit Diagnoses Not on filedocumented in this encounter Care Teams Soaking Room Operator Relationship Specialty Start Date End Date Pepito Chapa MD [address] [place] [address] [phone] PCP - General Internal Medicine 12/28/21 documented as of this encounter
--- OUTSIDE RECORDS SUMMARY | 2024-08-06 16:05 | XMS_ITS | Patient Health Record ---
Author Organization [facility] jaqui [place] Address [address] [place] [address] Care Team Providers Care Maxillofacial Prosthetics Dentist Name Role Phone Pepito Chapa Primary Care Provider Unav ailable Lauraeddi Delia Unavailable [phone] Allergies Allergen (clinical drug ingredient) Drug/Non Drug [...] Duration) Notes Start Date End Date Status Atorvastatin Calcium 20 MG 1 tablet Orally Once a day for 30 day(s) Active [place] Saline Nasal Gel - as directed Nasally Active Citrucel - as directed Orally Active Tretinoin 0.025 % 1 application in the evening to face Externally Once a day Active Ciclopirox Olamine 0.77 % 1 application Externally Twice a day to skin of feet including between the toes for 30 days Active Vitamin D Active Extra Depth Orthopedic Shoes (1 Pair) with Customized Heat Molded Multidensity Innersoles (3 Pair) as directed Dx: NIDDM (E11.9), Hammertoe Foot Deformity (M20.41,M20.42), Preulcerative Skin Lesion(s) (L85.1) 09/06/2023 Active Ketoconazole Oral pill Active Acetaminophen 650 MG/20.3ML as directed Orally every 8 hours as needed Active ACT Fluoride Active PARoxetine HCl 10 MG 1 tablet in the morning Orally Once a day for 30 day(s) Active Pradaxa 150 MG 1 capsule Orally Twice a day for 30 day(s) Active Refresh Optive Advanced Active Sotalol HCl 80 MG 1 tablet Orally ever y 12 hrs for 30 day(s) Active Cephalexin 500 MG 1 capsule Orally every 12 hrs for 7 day(s) 05/29/2024 Active Lisinopril 5 MG 1 tablet Orally Once a day for 30 day(s) Active Ketoconazole 2 % 1 application Externally Once a day for 14 day(s) Active Latanoprost 0.005 % 1 drop into affected eye in the evening Ophthalmic Once a day Active Flunisolide 25 MCG/ACT (0.025%) as directed Nasally Active Gabapentin 300 MG 1 capsule Orally Onc e a day for 30 day(s) Active Hydrocort-Pramoxine (Perianal) 2.5-1 % 1 application Externally Three times a day Active Hydrocortisone 2.5 % 1 application Externally Once a day Active Clotrimazole 1 % 1 application Externally Twice a day for 14 day(s) Active diazePAM 5 MG 1 tablet as needed Orally Once a day Active Doxepin HCl 10 MG 1 capsule at bedtime Orally Once a day for 30 day(s) Active Fish Oil 1000 MG 1 capsule Orally Onc e a day for 30 day(s) Active Immunizations Vaccine Route Administration Date Status [...] Problem Acquired hammer toe of right foot (03483936911670 05) Other hammer toe(s) (acquired), right foot (M20.41) Active confirmed Problem Acquired hammer toe of left foot (16605741862295 03) Other hammer toe(s) (acquired), left foot (M20.42) Active confirmed Problem [id number] Type 2 diabetes mellitus without complication, without long-term current use of insulin (E11.9) Active confirmed Vital Signs Blood pressure diastolic 80 mm Hg 06/12/2024 Height 5 ft 3 in in 06/12/2024 Blood pressure systolic 133 mm Hg 06/12/2024 Weight 195 lbs 06/12/2024 BMI 34.54 kg/m2 06/12/2024 Encounters Encounter Location Date Provider Diagnosis [address] [address] 09/06/2023 Delia Perica Type 2 diabetes mellitus without complication, without long-term current use of insulin E11.9 ; Other hammer toe(s) (acquired), right foot M20.41 and Other hammer toe(s) (acquired), left foot M20.[address] [address] 11/18/2023 Delia Perica Type 2 diabetes mellitus without complication, without long-term current use of insulin E11.9 ; Ingrown nail L60.0 ; Other hammer toe(s) (acquired), right foot M20.41 and Other hammer toe(s) (acquired), left foot M20.[address] [address] 01/31/2024 Delia Perica Type 2 diabetes mellitus without complication, without long-term current use of insulin E11.9 ; Ingrown nail L60.0 ; Other hammer toe(s) (acquired), right foot M20.41 and Other hammer toe(s) (acquired), left foot M20.[address] [address] 04/10/2024 Delia Perica Type 2 diabetes mellitus without complication, without long-term current use of insulin E11.9 ; Tinea pedis of both feet B35.3 ; Tinea unguium B35.1 ; Pain in right toe(s) M79.674 and Pain in left toe(s) M79.[address] [address] 06/12/2024 Delia Perica Type 2 diabetes mellitus without complication, without long-term current use of insulin E11.9 ; Ingrown nail L60.0 ; Tinea unguium B35.1 ; Pain in right toe(s) M79.674 and Pain in left toe(s) M79.[address] [facility] [address] 09/30/2023 Delia Perica [facility] [address] 12/16/2023 Delia Perica [facility] [address] 03/07/2024 [facility] [address] [facility] [address] 06/12/2024 [facility] [address] 07/25/2024 [facility] [address] [address] 05/29/2024 Delia Disla Assessments Encounter Date Diagnosis (ICD Code) Assessment Notes Treatment Notes Treatment Clinical Notes Section Notes 09/06/2023 Other hammer toe(s) (acquired), right foot [...] pedis of both feet (ICD-10 - B35.3) 06/12/2024 Ingrown nail (ICD-10 - L60.0) 06/12/2024 Type 2 diabetes mellitus without complication, without long-term current use of insulin (ICD-10 - E11.9) 01/31/2024 Ingrown nail (ICD-10 - L60.0) 06/12/2024 Tinea unguium (ICD-10 - B35.1) 04/10/2024 Tinea unguium (ICD-10 - B35.1) 11/18/2023 Other hammer toe(s) (acquired), right foot (ICD-10 - M20.41) 09/06/2023 Other hammer toe(s) (acquired), left foot (ICD-10 - M20.42) 01/31/2024 Other hammer toe(s) (acquired), right foot (ICD-10 - M20.41) 11/18/2023 Other hammer toe(s) (acquired), left foot (ICD-10 - M20.42) 04/10/2024 Pain in right toe(s) (ICD-10 - M79.674) 06/12/2024 Pain in right toe(s) (ICD-10 - M79.674) 04/10/2024 Pain in left toe(s) (ICD-10 - M79.675) 06/12/2024 Pain in left toe(s) (ICD-10 - M79.675) 01/31/2024 Other hammer toe(s) (acquired), left foot (ICD-10 - M20.42) Plan Of Treatment Next Appt Details Provider Name:Delia montague, 08/21/2024 03:30:00 PM, [address] [facility], [place], [address], Insurance Providers Payer Name Payer Address Payer Phone Subscriber Number Group Number Insured Name Patient Relationship to Insured Coverage Start Date Coverage End Date Medicare [facility] [address] [place] [address] [id number] Jessenia Pisano Self - patient is the insured Med [facility] [address] [place] [phone] [id number] Jessenia Pisano Self - patient is the insured Medical (General) History Medical History History ICD Code Anxiety Arthritis Back,Hip,and Knee pain Depression Fibromyalgia Diabetic Measles Mumps Chicken pox Psychiatric disorder osteoarthritis Heart disease Pacemaker Surgical History Surgery Date(Month/Year) cardiac pacemeker Heart Attack Heart Block Cervical discectomy/fusion
--- OUTSIDE RECORDS SUMMARY | 2024-08-06 16:05 | XMS_ITS | Encounter Summary ---
Author Organization [facility] Address [address] [place] [address] Care Team Providers Care Roller Mill Tender Name Role Phone Olman Mejía MD Primary Care Provider Pepito Dunne MD Primary Care Provider + Encounter Details Date Type Department Care Team Description 09/08/2020 Orders Only Radiology - [place] [address] [place] [address] Olman Mejía MD Social History Tobacco Use Types Packs/Day [...] on filedocumented in this encounter Care Teams Roller Mill Tender Relationship Specialty Start Date End Date Olman Mejía MD PCP - General Internal Medicine 12/23/14 12/27/21 Pepito Chapa MD [address] [place] [address] PCP - General Internal Medicine 12/28/21 documented as of this encounter
--- OUTSIDE RECORDS SUMMARY | 2024-08-06 16:05 | XMS_ITS | Encounter Summary ---
Author Organization [facility] Address [address] [facility] [place] [address] Care Team Providers Care Animal Science Instructor Name Role Phone Olman Mejía MD Primary Care Provider Pepito Dunne MD Primary Care Provider + Reason for Visit * Reason Onset Date Comments Surgery Cancelled 07/15/2021 Encounter Details Date Type Department Care Team Description 07/15/2021 Telephone Plastic Surgery - [address] [place] [address] Iban Pereira DO Surgery Cancelled Social History Tobacco Use Types Packs/Day Years [...] have Coronavirus / COVID-19? No / Unsure 06/26/2021 1:01 PM EST documented as of this encounter Miscellaneous Notes * Telephone Encounter - Margy Eaton M.A. - 07/29/2021 11:45 AM EST Patient called to r/s surgery, we do not have any surgical time currently. I told patient we will contact her once we have more time * Telephone Encounter - Margy Eaton M.A. - 07/15/2021 8:08 AM EST Patient called to cancel her surgery for lesion left chest today because she has flu-symptoms. I told her we will contact her to reshedule her apt. documented in this encounter Plan of Treatment Not on file documented as of this encounter Visit Diagnoses Not on filedocumented in this encounter Care Teams Animal Science Instructor Relationship Specialty Start Date End Date Olman Mejía MD PCP - General Internal Medicine 12/23/14 12/27/21 Pepito Chapa MD [address] [place] [id number] PCP - General Internal Medicine 12/28/21 documented as of this encounter
--- OUTSIDE RECORDS SUMMARY | 2024-08-06 16:05 | XMS_ITS | Encounter Summary ---
Author Organization [facility] Address [address] [place] [address] Care Team Providers Care Bar Machine Operator Production Name Role Phone Olman Mejía MD Primary Care Provider Pepito Dunne MD Primary Care Provider + Encounter Details Date Type Department Care Team Description 09/06/2020 Horticultural Specialty Grower Inside Report Medical Records [address] [place] [phone] Aman Avalos MD Social History Tobacco Use [...] on filedocumented in this encounter Care Teams Bar Machine Operator Production Relationship Specialty Start Date End Date Olman Mejaí MD PCP - General Internal Medicine 12/23/14 12/27/21 Pepito Chapa MD [address] [place] [address] PCP - General Internal Medicine 12/28/21 documented as of this encounter
--- OUTSIDE RECORDS SUMMARY | 2024-08-06 16:05 | XMS_ITS | Encounter Summary ---
Author Organization [facility] Address [address] [place] [address] Care Team Providers Care Child Day Care Center Worker Name Role Phone Olman Mejía MD Primary Care Provider Pepito Dunne MD Primary Care Provider + Reason for Visit * Reason Onset Date Comments Annual Wellness Outreach 03/13/2021 Encounter Details Date Type Department Care Team Description 03/13/2021 Telephone Adult Medicine [address] [address] Olman Mejía MD Annual Wellness Outreach Social History Tobacco Use Types Packs/Day Years [...] encounter Miscellaneous Notes * Telephone Encounter - Armaan Rothman M.A. - 03/13/2021 11:27 AM EDT Ms. Pisano was contacted by telephone. 1st attempt. No answer. documented in this encounter Plan of Treatment Not on file documented as of this encounter Visit Diagnoses Not on filedocumented in this encounter Care Teams Child Day Care Center Worker Relationship Specialty Start Date End Date Olman Mejía MD PCP - General Internal Medicine 12/23/14 12/27/21 Pepito Chapa MD [address] [place] [address] PCP - General Internal Medicine 12/28/21 documented as of this encounter
--- OUTSIDE RECORDS SUMMARY | 2024-08-06 16:05 | XMS_ITS | Encounter Summary ---
Author Organization [facility] Address [address] [facility] [place] [address] Care Team Providers Care Project Reservoir Engineer Name Role Phone Olman Mejía MD Primary Care Provider Pepito Dunne MD Primary Care Provider + Encounter Details Date Type Department Care Team Description 12/08/2021 Sugar Trucker Report Medical Records [address] [place] [phone] Aman Avalos MD Social History Tobacco Use [...] on filedocumented in this encounter Care Teams Project Reservoir Engineer Relationship Specialty Start Date End Date Olman Mejía MD PCP - General Internal Medicine 12/23/14 12/27/21 Pepito Chapa MD [address] [place] [address] PCP - General Internal Medicine 12/28/21 documented as of this encounter
--- OUTSIDE RECORDS SUMMARY | 2024-08-06 16:05 | XMS_ITS | Encounter Summary ---
Author Organization [facility] Address [address] [place] [address] Care Team Providers Care Cinema Or Theatre Manager Name Role Phone Pepito Chapa MD Primary Care Provider + Reason for Visit * Reason Onset Date Comments Faxed Order 11/14/2023 Encounter Details Date Type Department Care Team Description 11/14/2023 Telephone Adult Medicine [facility] [address] [place] [address] Pepito Chapa MD [address] [place] [address] [phone] Faxed Order Social History Tobacco Use Types Packs/Day Years [...] on filedocumented in this encounter Care Teams Cinema Or Theatre Manager Relationship Specialty Start Date End Date Pepito Chapa MD [address] [place] [phone] PCP - General Internal Medicine 12/28/21 documented as of this encounter
--- OUTSIDE RECORDS SUMMARY | 2024-08-06 16:05 | XMS_ITS | Encounter Summary ---
Author Organization [facility] Address [address] [facility] [place] [address] Care Team Providers Care Commercial Agent Name Role Phone Pepito Chapa MD Primary Care Provider + Encounter Details Date Type Department Care Team Description 08/25/2023 Shot Coat Tender Report Medical Records [address] [place] [address] Aman Avalos MD Social History Tobacco Use [...] on filedocumented in this encounter Care Teams Commercial Agent Relationship Specialty Start Date End Date Pepito Chapa MD [address] [place], [place] [phone] PCP - General Internal Medicine 12/28/21 documented as of this encounter
--- OUTSIDE RECORDS SUMMARY | 2024-08-06 16:05 | XMS_ITS | Encounter Summary ---
Author Organization [facility] Address [address] [facility] [place] [address] Care Team Providers Care Science Education Professor Name Role Phone Pepito Chapa MD Primary Care Provider + Encounter Details Date Type Department Care Team Description 12/15/2023 Orders Only Medical Records [address] [place] [address] Delia Disla DPM Social History Tobacco Use Types Packs/Day Years [...] on file documented as of this encounter Procedures Procedure Name Priority Date/Time Associated Diagnosis Comments OUTSIDE FOOT EXAM Routine 11/18/2023 documented in this encounter Results * OUTSIDE FOOT EXAM (11/18/2023) Delia Disla DPM PERFORMABLES documented in this encounter Visit Diagnoses Not on filedocumented in this encounter Care Teams Science Education Professor Relationship Specialty Start Date End Date Pepito Chapa MD [address] [place], [place] [phone] PCP - General Internal Medicine 12/28/21 documented as of this encounter
--- OUTSIDE RECORDS SUMMARY | 2024-08-06 16:05 | XMS_ITS | Encounter Summary ---
Author Organization [facility] Address [address] [facility] [place] [address] Care Team Providers Care Assistant Professor Of Biology Name Role Phone Olman Mejía MD Primary Care Provider Pepito Dunne MD Primary Care Provider + Encounter Details Date Type Department Care Team Description 07/03/2020 SCAN Medical Records [address] [place] [address] Abstract, Provider Social History Tobacco Use Types [...] on filedocumented in this encounter Care Teams Assistant Professor Of Biology Relationship Specialty Start Date End Date Olman Mejía MD PCP - General Internal Medicine 12/23/14 12/27/21 Pepito Chapa MD [address] [place] [address] PCP - General Internal Medicine 12/28/21 documented as of this encounter
--- OUTSIDE RECORDS SUMMARY | 2024-08-06 16:05 | XMS_ITS | Encounter Summary ---
Author Organization [facility] Address [address] [facility] [place] [address] Care Team Providers Care Traffic Investigator Name Role Phone Pepito Chapa MD Primary Care Provider + Reason for Visit * Reason Onset Date Comments REFERRAL 03/19/2022 Encounter Details Date Type Department Care Team Description 03/19/2022 Telephone Adult Medicine [facility] [address] [place] [address] Pepito Chapa MD [address] [place] [address] REFERRAL Social History Tobacco Use Types Packs/Day Years [...] Recorded In the last 10 days, have yo u been in contact with someone who was confirmed or suspected to have Coronavirus/COVID-19? No / Unsure 03/02/2022 12:54 PM EDT documented as of this encounter Miscellaneous Notes * Telephone Encounter - Wai Meredith - 04/21/2022 1:13 PM EST Patient has been waiting for this referral for Dr. South, please complete * Telephone Encounter - Arden Smith - 03/19/2022 9:12 AM EDT What insurance does the patient have today? [place] / Plan[place] / Product Type: MEDICARE [id number] Effective 03/06/09: [employer] will not retro referral requests over 90 days. If request is for this please instruct patient to call the 800# on their insurance card to appeal. Do not submit a request. Referrals cannot be processed if the insurance is not accurate. If the insurance listed above in red is NO BILLING INFORMATION FOUND FOR THIS ENCOUTNER The patients correct insurance must be obtained and registered in [facility] or their referral can not be processed. Is this a retro request? NO. If yes for what date of service do you need the retro referral? N/A Who is calling to request this referral? Patient If the caller is not the patient, what is their name? N/A Ask the patient WHO referred them to this specialty: Patient self referred FIRST and LAST NAME of SPECIALIST PATIENT is seeing: Dr. South What specialty is this? dermotolgist DIAGNOSIS Patient is being seen for (Not a body part or a procedure): Skin cancer Have you seen this SPECIALIST for this PROBLEM/DX before?NO If YES, when: Have you checked REVIEW or the APPT DESK to see if this referral has already been done or has visits left? YES Is this visit:Initial Visit Address of Specialist: [address] [place] [address] [address] Phone # of Specialist:[phone] Fax #: (if applicable):[phone] Does patient have an appointment scheduled?: YES Date of appointment- (including a retro-request): 05/14/22 4 Visit Is this appointment related to: Not MVA, WC or Surgery related documented in this encounter Plan of Treatment Not on file documented as of this encounter Visit Diagnoses Not on filedocumented in this encounter Care Teams Traffic Investigator Relationship Specialty Start Date End Date Pepito Chapa MD [address] [place] [id number] PCP - General Internal Medicine 12/28/21 documented as of this encounter
--- OUTSIDE RECORDS SUMMARY | 2024-08-06 16:05 | XMS_ITS | Encounter Summary ---
Author Organization [facility] Address [address] [facility] [place] [address] Care Team Providers Care Human Services Supervisor Name Role Phone Pepito Chapa MD Primary Care Provider + Reason for Visit * Reason Onset Date Comments refill request 03/26/2022 Encounter Details Date Type Department Care Team Description 03/26/2022 Refill Adult Medicine [facility] [address] [place] [address] Pepito Chapa MD [address] [place] [address] refill request Social History Tobacco Use Types Packs/Day Years [...] encounter Miscellaneous Notes * Telephone Encounter - Rubi Rojas M.A. - 03/30/2022 11:39 AM EDT Left voicemail for pt to call back Please advise this medication comes from cardiology * Telephone Encounter - Jessica Weems M.A. - 03/26/2022 1:57 PM EDT NGUYỄN 03/02/2022 F/U appt 06/09/2022 * Telephone Encounter - Gina Nunez - 03/26/2022 10:38 AM EDT Patient would like script to be: E-PRESCRIBED/FAXED TO PHARMACY WHEN WAS THE PATIENT'S LAST APPOINTMENT IN ADULT MEDICINE? 03/02/22 WHEN WAS THE LAST TIME THE PATIENT SAW THEIR PCP? Same as above Does patient have an upcoming appointment? Yes 06/09/22 (THE MEDICATION REQUESTED IS ON THE MED LIST ABOVE) All of the medications requested were on the CURRENT MEDS list Did you check the Pharmacy information above?: YES Patient wants: 90 -day supply Is this a mail order prescription request ? NO If the refill is from a FAXED refill request what is the RX # listed on the fax? N/A Patients current insurance carrier is: [place] / [place] / Product Type: MEDICARE [id number] documented in this encounter Plan of Treatment Not on file documented as of this encounter Visit Diagnoses Not on filedocumented in this encounter Care Teams Human Services Supervisor Relationship Specialty Start Date End Date Pepito Chapa MD [address] [place] [address] PCP - General Internal Medicine 12/28/21 documented as of this encounter
[2024-08-09] VITALS (19 sets, daily range): BP systolic 122–207; BP diastolic 50–90; PULSE 64–78; RESP 12–23; TEMP 36.9–37.4; O2SAT 92–98; BMI 32.4
[2024-08-09] MEDS: ceFAZolin Sodium/Dextrose,Iso 2 GM/50 ML PIGGYBACK IV (14:19)
--- NOTE | 2024-08-09 15:02 | P.OP_ITS ---
Operative Note Operative Note Date of Service: 08/09/24 Narrative: Procedures performed: 1. Generator replacement for dual chamber pacemaker 2. Moderate sedation provided by sc The patient presented to the EP lab in a fasting, non-sedated state after written informed consent was verified. The patient was draped in the usual sterile manner. The left deltopectoral groove was marked and infiltrated with 1% lidocaine. A 1 inch incision was made over the prior incision site. The existing pacemaker generator was exposed using a combination of blunt dissection and electrocautery. The existing generator was removed from the pocket. The RV lead was unscrewed and removed from the existing generator and promptly inserted into the header of the new generator and screwed in using the provided wrench. The atrial lead was removed from the existing generator and inserted into the respec tive port on the header of the new generator. The pocket was flushed with an antibiotic irrigant and any bleeders were controlled. The new generator was placed inside the pocket and the leads were wrapped underneat the generator. The device was checked and the pacing parameters were noted to optimal and stable compared to before. The pocket was closed in 3 layers: 2-0 Vicryl running followed by 4-0 V-Loc for the subcuticular layer. Exofin was applied over the incision site followed by gauze and a Tegaderm dressing. No acute perioperative complications noted. Device settings: [place]/Szymanski dual chamber pacemaker Device is programmed DDD 60/110 bpm. Capture threshold for the A lead: 0.5 V at 0.5 ms. Impedance of 580 ohm. Capture threshold for the V lead: 0.75 V at 0.5 ms. Impedance of 600 ohm. Recommendations: 1. Do not get incision site wet for 7 days. 2. Follow up in EP clinic in 7-10 days for incision site check. 3. Resume taking Pradaxa on 08/13/24. Continue other meds as before. 4. Follow up with Dr. Avalos as scheduled.
[2024-08-09] MEDS: Midazolam HCl 2 MG/2 ML VIAL 1 MG IVPUSH (15:39)
[2024-08-09] MEDS: fentaNYL citrate/PF 100 MCG/2 ML VIAL 25 MCG IVPUSH (15:40)
== END 2024-08-09 17:50 | disposition home or self-care (01) ==
PROVIDERS: PCP Family Medicine; Visit Provider Student in an Organized Health Care Education/Training Program
PROC: (CPT 33228; principal; 2024-08-09 14:00)
DX: Z45.018 Encounter for adjustment and management of other part of cardiac pacemaker (principal); I11.0 Hypertensive heart disease with heart failure; I50.30 Unspecified diastolic (congestive) heart failure; I44.2 Atrioventricular block, complete; I48.0 Paroxysmal atrial fibrillation; Z79.899 Other long term (current) drug therapy; Z88.0 Allergy status to penicillin; Z98.890 Other specified postprocedural states
CPT/HCPCS: 33228; C1785; J0690; J2003; J2250; J2310; J3010; J3370

== ENCOUNTER → 2024-11-09 23:59 | Outpatient (BNV) | payer MEDICARE, MEDICAID, SELFPAY ==
--- NOTE | 2024-11-12 15:35 | MHC.OFFVIS ---
Intake Visit Reasons: Remote device check- [place] Allergies Penicillins [PENICILLINS] Allergy (Mild, Verified 08/09/24 13:08) RASH house dust Allergy (Unknown, Verified 08/09/24 13:08) Unknown mold Allergy (Unknown, Verified 08/09/24 13:08) Unknown lactose Adverse Reaction (Unknown, Verified 08/09/24 13:08) Unknown PFSH Medical History (HFpEF) heart failure with preserved ejection fraction HTN (hypertension) Cardiac pacemaker in situ Paroxysmal atrial fibrillation Complete heart block Surgical History Hx of discectomy Hx of angioplasty Hx of hysterectomy Hx of colonoscopy Family History Father CHF (congestive heart failure) CVD (cardiovascular disease) Mother CVD (cardiovascular disease) Stroke Alzheimer disease Son CVD (cardiovascular disease) HTN (hypertension) Social History Alcohol intake: never Patient Tobacco Use Status: Never used Tobacco Office Procedures Cardiac Device Check Cardiac Device Check Details: Remote pacemaker report generated 11/09/2024. Pacemaker function is adequate [id number] Cardiac Device Interrogation, pacemaker Procedure code (CPT) selection complete Assessment & Plan Assessment & Plan (1) Cardiac pacemaker in situ: Comment: Dual-chamber [place] Code(s): Z95.0 - Presence of cardiac pacemaker Category: Medical Plan: See above Coding Level of Care Code Procedure Only Diagnoses Cardiac pacemaker in situ Z95.0 CPT Codes Cardiac Device Check - Cardiac Device 12: [id number] Cardiac Device Interrogation, pacemaker ([id number])
== END ==
PROVIDERS: PCP Family Medicine; Visit Provider Internal Medicine Cardiovascular Disease
DX: Z45.018 Encounter for adjustment and management of other part of cardiac pacemaker (principal)
CPT/HCPCS: 93294

== ENCOUNTER 2024-11-19 13:04 | Outpatient (AMB) | payer MEDICARE, MEDICAID, SELFPAY ==
[2024-11-19 13:09] VITALS: BP 132/80; PULSE 62; BMI 33.3
--- NOTE | 2024-11-19 13:09 | A.OFFVIS_ITS ---
Vital Signs 11/19/24 13:09 Height 5 ft 3 in Weight 188 lb 4.396 oz BMI 33.3 BP 132/80 Blood Pressure Location Lt brachial Position Sitting Pulse 62 Pulse Source Pulse Oximeter Intake Visit Reasons: f/u hospital visits and pacemaker. Pipelayer Required: No Allergies Penicillins [PENICILLINS] Allergy (Mild, Verified 11/19/24 13:13) RASH house dust Allergy (Unknown, Verified 11/19/24 13:13) Unknown mold Allergy (Unknown, Verified 11/19/24 13:13) Unknown lactose Adverse Reaction (Unknown, Verified 11/19/24 13:13) Unknown Medication List - Last Reconciled 11/19/24 by MADELEINE Maurice acetaminophen ER 650 mg PO Q8H PRN apixaban (Eliquis) 5 mg PO BID atorvastatin 20 mg PO DAILY cholecalciferol (vitamin D3) (Vitamin D3) 50 mcg PO DAILY clotrimazole 1% appl topical BID diazepam 2.5 mg PO BID PRN diltiazem HCl ER (DILT-XR) 180 mg PO DAILY doxepin 10 mg PO BEDTIME furosemide 40 mg PO BID hydrocortisone 2.5% appl topical 2XW ipratropium bromide 2 sprays intranasal Q12H ketoconazole 2% appl topical DAILY latanoprost 0.005% 1 drp ophthalmic (eye) BEDTIME lisinopril 5 mg PO DAILY methylcellulose (laxative) ea PO paroxetine HCl 10 mg PO DAILY sodium chloride-aloe vera 1 ea intranasal BEDTIME sodium chloride-aloe vera (Nunez Saline Gel nasal spray) 1 spray intranasal BEDTIME PRN sotalol (Sotalol AF) 80 mg PO BID tretinoin 0.025% appl topical BEDTIME HPI HPI f/u hospital visits and pacemaker.: Details: Jessenia is an 84-year-old female presenting with follow-up for paroxysmal atrial fibrillation management, heart failure with preserved ejection fraction, and pacemaker function. Atrial fibrillation managed with sotalol; device monitoring shows 0% AF burden. Generator change noted; pacemaker functioning normally. Heart failure treated with furosemide, EF 60%, mild tricuspid regurgitation, mild pulmonary hypertension on echocardiogram. Recently experienced intestinal obstruction, treated medically, and catheter-associated bleeding episode requiring antibiotics. No new atrial fibrillation noted though she feels palpitations. Breathing is stable, no significant edema; reduced activity levels since recent hospital stress. [facility] Medical History (HFpEF) heart failure with preserved ejection fraction HTN (hypertension) Cardiac pacemaker in situ Paroxysmal atrial fibrillation Complete heart block Surgical History Hx of discectomy Hx of angioplasty Hx of hysterectomy Hx of colonoscopy Family History Father CHF (congestive heart failure) CVD (cardiovascular disease) Mother CVD (cardiovascular disease) Stroke Alzheimer disease Son CVD (cardiovascular disease) HTN (hypertension) Social History Alcohol intake: never Patient Tobacco Use Status: Never used Tobacco Review of Systems Const All systems reviewed & are unremarkable except as noted in HPI and below ENT Denies dizziness Card Denies chest pain, Denies chest pain at rest, Denies chest pain with activity, Denies rapid heart rate, Denies pedal edema, Denies edema, Denies leg edema, Denies lightheadedness, Denies palpitations, Denies dyspnea, Denies dyspnea on exertion and Denies orthopnea Resp Denies cough, Denies dyspnea and Denies dyspnea on exertion GI Denies hematochezia and Denies change in stool character Musc Denies abnormal gait, Denies limited range of motion, Denies muscle cramps, Denies muscle weakness, Denies numbness, Denies radiating pain into limb, Denies stiffness and Denies tingling Neuro Denies abnormal gait, Denies dizziness, Denies numbness and Denies tingling Endo Denies palpitations Physical Exam Vital Signs: Last Vital Signs Pulse 62 11/19/24 13:09 BP 132/80 11/19/24 13:09 BMI result Body Mass Index 33.3 Const General: cooperative, healthy appearing, comfortable and no acute distress Orientation/consciousness: patient oriented x3 Neck Neck: Yes normal visual inspection Resp Effort & Inspection: normal respiratory effort Auscultation: clear to auscultation bilaterally, no rales, no rhonchi and no wheezes Cardio Rate: regular rate Rhythm: regular rhythm Heart sounds: S1 normal heart sound present, S2 normal heart sound present, no gallops, no murmurs and no rubs Neuro General: patient oriented x3 Extrem General: Yes normal to inspection and No no pedal edema Psych Appearance: grossly normal Mental Status: mental status grossly normal Speech and movement: Normal speech and movement present Office Procedures EKG Details: Today, read by me, atrial sensed, ventricular paced, rate 60 [id number], Complete Assessment & Plan Assessment & Plan (1) Paroxysmal atrial fibrillation: Comment: Has done extremely well with rhythm control approach. Currently suppressed on sotalol therapy Code(s): I48.0 - Paroxysmal atrial fibrillation Category: Medical Plan: Paroxysmal atrial fibrillation treated with rhythm control using sotalol. No recent recurrent AFib noted as seen on device interrogation. EKG done today showing atrial and ventricular paced rhythm, rate 60. She is on Eliquis for anticoagulation, no bleeding issues reported. Recommend biannual CBC and renal function. Cardiology follow-up 6 months, sooner if needed (2) (HFpEF) heart failure with preserved ejection fraction: Code(s): I50.30 - Unspecified diastolic (congestive) heart failure Category: Medical Plan: History of heart failure with preserved EF which has remained stable without recent heart failure hospitalizations. She is on daily Lasix. Last echocardiogram 02/13/2024 showed EF 60%, mild tricuspid regurgitation and mild pulmonary hypertension. She does not appear fluid overloaded on examination. Signs and symptoms of heart failure reviewed with her. (3) Cardiac pacemaker in situ: Comment: Dual-chamber [place] Code(s): Z95.0 - Presence of cardiac pacemaker Category: Medical Plan: [place] dual-chamber pacemaker in place. Functioning normally on recent remote interrogation. Generator change done 08/09/2024. Site benign. Battery 10 years. Will plan for office device check next visit. Continue with remote monitoring. (4) HTN (hypertension): Code(s): I10 - Essential (primary) hypertension Category: Medical Plan: Blood pressure goal less than 130/80. Near goal at present. No med changes made. Continue lisinopril, Lasix. Plan I discussed with the patient the continued use of sotalol for rhythm control of paroxysmal atrial fibrillation, along with Eliquis for anticoagulation, emp hasizing the benefits in preventing thromboembolic events. I addressed the recent generator change as successful, with appropriate device monitoring reflecting this. The echocardiogram findings, showing stable heart function, were reviewed, reinforcing current management without alteration in the drug regimen. As the intestinal obstruction resolved non-surgically and post- catheterization bleeding was managed with antibiotics, close follow-up and vigilance in identifying symptoms warranting urgent care were advised. Follow-up will occur in six months, ensuring stable cardiovascular status. Patient Instructions: - Take all medications as prescribed: sotalol, Eliquis, Lisinopril and furosemide. - Keep the remote device monitor connected and functioning. - Monitor for any symptoms of atrial fibrillation or breathing issues. - Report any signs of unusual bleeding or fluid retention. - Engage in light physical activities as tolerated. - Schedule a follow-up appointment for six months. - Seek immediate medical help for any worsening symptoms or new concerns. Patient was informed and verbally consented to the use of an ambient scribe for clinic note documentation during this visit. Visit time spent on chart review, interview, assessment, orders, documentation. Coding Level of Care Code Est Pt Level 4 (36542) Complex EM visit Add On G2211 Diagnoses Paroxysmal atrial fibrillation I48.0 (HFpEF) heart failure with preserved ejection fraction I50.30 Cardiac pacemaker in situ Z95.0 HTN (hypertension) I10 CPT Codes EKG - CPT: 85504-[id number], Complete ([id number]) Time Spent (min) 28
--- OUTSIDE RECORDS SUMMARY | 2024-11-19 14:32 | XMS_ITS | Encounter Summary ---
Author Organization [facility] Address [address] [place] [address] Care Team Providers Care Coatings Inspector Name Role Phone Olman Mejía MD Primary Care Provider Pepito Dunne MD Primary Care Provider + Reason for Visit * Reason Comments E-prescribe Rx Request Encounter Details Date Type Department Care Team Description 11/30/2015 Refill Adult Medicine [address] [address] Millicent Carr MD E-prescribe Rx Request Social [...] NO Patients current insurance carrier is: Payor: [employer]IC[employer] / Plan: [employer]ICARE[employer] / Product Type: MEDICARE [id number] documented in this encounter Plan of Treatment Not on file documented as of this encounter Visit Diagnoses Not on filedocumented in this encounter Care Teams Coatings Inspector Relationship Specialty Start Date End Date Olman Mejía MD PCP - General Internal Medicine 12/23/14 12/27/21 Pepito Chapa MD [address] [place] [id number] PCP - General Internal Medicine 12/28/21 documented as of this encounter
== END 2024-11-19 13:46 | disposition home or self-care (01) ==
LOC: HO.HCS 13:05
PROVIDERS: PCP Family Medicine; Visit Provider Nurse Practitioner Family
DX: I48.0 Paroxysmal atrial fibrillation (principal); I50.30 Unspecified diastolic (congestive) heart failure; Z95.0 Presence of cardiac pacemaker; I10 Essential (primary) hypertension
CPT/HCPCS: 93010; 99214; G2211

== ENCOUNTER → 2024-11-19 13:04 | Outpatient (BNVA) | payer MEDICARE, OTHER, SELFPAY | PROVIDERS: PCP Family Medicine; Visit Provider Nurse Practitioner Family | DX: I48.0 Paroxysmal atrial fibrillation (principal); I11.0 Hypertensive heart disease with heart failure; I50.30 Unspecified diastolic (congestive) heart failure; Z95.0 Presence of cardiac pacemaker; R94.31 Abnormal electrocardiogram [ECG] [EKG] | CPT/HCPCS: 93005; 99212 ==

== ENCOUNTER → 2025-02-08 23:59 | Outpatient (BNV) | payer MEDICARE, MEDICAID, SELFPAY ==
--- NOTE | 2025-02-12 13:24 | MHC.OFFVIS ---
Intake Visit Reasons: Remote device check- [facility] Allergies Penicillins (PENICILLINS) Allergy (Mild, Verified 11/19/24 13:13) RASH house dust Allergy (Unknown, Verified 11/19/24 13:13) Unknown mold Allergy (Unknown, Verified 11/19/24 13:13) Unknown lactose Adverse Reaction (Unknown, Verified 11/19/24 13:13) Unknown PFSH Medical History (HFpEF) heart failure with preserved ejection fraction HTN (hypertension) Cardiac pacemaker in situ Paroxysmal atrial fibrillation Complete heart block Surgical History Hx of discectomy Hx of angioplasty Hx of hysterectomy Hx of colonoscopy Family History Father CHF (congestive heart failure) CVD (cardiovascular disease) Mother CVD (cardiovascular disease) Stroke Alzheimer disease Son CVD (cardiovascular disease) HTN (hypertension) Social History Alcohol intake: never Patient Tobacco Use Status: Never used Tobacco Office Procedures Cardiac Device Check Cardiac Device Check Details: Remote pacemaker report generated 02/08/2025. Pacemaker function is adequate [id number] Cardiac Device Interrogation, pacemaker Procedure code (CPT) selection complete Assessment & Plan Assessment & Plan (1) Cardiac pacemaker in situ: Comment: Dual-chamber [place] Code(s): Z95.0 - Presence of cardiac pacemaker Category: Medical Plan: See above Coding Level of Care Code Procedure Only Diagnoses Cardiac pacemaker in situ Z95.0 CPT Codes Cardiac Device Check - Cardiac Device 12: [id number] Cardiac Device Interrogation, pacemaker ([id number])
== END ==
PROVIDERS: PCP Family Medicine; Visit Provider Internal Medicine Cardiovascular Disease
DX: Z45.018 Encounter for adjustment and management of other part of cardiac pacemaker (principal)
CPT/HCPCS: 93294

== ENCOUNTER 2025-05-21 13:48 | Outpatient (AMB) | payer MEDICARE, MEDICAID, SELFPAY ==
--- OUTSIDE RECORDS SUMMARY | 2024-06-29 08:45 | XMS_ITS ---
Author Organization [facility] Address [address] [place] [address] Care Team Providers Care Naturalization Examiner Name Role Phone Pepito Chapa Primary Care Provider Unav ailable Delia Disla Unavailable [phone] REASON FOR VISIT seen sooner Encounters Encounter Location Date Provider Diagnosis [facility] [address] [place] [address] 06/29/2024 Delia Disla Plan Of Treatment Next Appt Details Provider Name:Deila montague, 07/03/2025 02:00:00 PM, [address] [place], [address], Progress Notes * Vilma PISANOanceDOB:1940 (84 yo F)Acc No.[id number]:06/29/2024 Progress Note Patient: Jessenia CHAIDEZ Provider: Pati Disla DPM :1940 A ge:83 Y S ex:Female Date:06/29/2024 Address:[address], [facility] Pcp:Pepito Chapa Subjective: * Chief Complaints: * 1 . Seen sooner. * Medical History: Objective: * Vitals: Assessment: Plan: * Treatment: * Images: * The named appointment provid er may or may not be the originator of this progress note, and it is not deemed complete until electronically signed by the appointment provider. Sign off status: Pending * Provider: Pati Disla, DPMae Date: 0 06/29/2024 Generated for Norma asher/Amy/Refugio on: 07/22/2024 05:58 PM EST
--- OUTSIDE RECORDS SUMMARY | 2024-08-21 10:30 | XMS_ITS ---
Author Organization [facility] Address [address] [place] [address] Care Team Providers Care Vice Chairman Name Role Phone Pepito Chapa Primary Care Provider Unav ailable Delia Disla [phone] Encounters Encounter Location Date Provider Diagnosis [facility] [address] [place] [address] 08/21/2024 Delia Disla Plan Of Treatment Next Appt Details Provider Name:Delia montague, 07/03/2025 02:00:00 PM, [address] [place], [address], Progress Notes * Vilma PISANOanceDOB:1940 (84 yo F)Acc No.[id number]:08/21/2024 Progress Note Patient: Jessenia CHAIDEZ Provider: Pati Disla DPM :1940 A ge:83 Y S ex:Female Date:08/21/2024 Address:[address] [facility], [facility] Pcp:Pepito Chapa Subjective: * Chief Complaints: * * Medical History: Objective: * Vitals: Assessment: Plan: * Treatment: * Images: * The named appointment provid er may or may not be the originator of this progress note, and it is not deemed complete until electronically signed by the appointment provider. Sign off status: Pending * Provider: Pati Disla DPM Date: 0 08/21/2024 Generated for Norma asher/Amy/Refugio on: 1 07/22/2024 05:58 PM EST
--- OUTSIDE RECORDS SUMMARY | 2024-09-25 04:00 | XMS_ITS ---
Author Organization [facility] [place] Address [address] [address] Care Team Providers Care Binding Stitcher Name Role Phone Pepito Chapa Primary Care Provider Unav ailable Delia Disla Unavailable [phone] Hernandez Medications Medication SIG (Take, Route, Frequency, Duration) Notes Start Date End Date Status Acetaminophen 650 MG/20.3ML as directed Orally every 8 hours as needed Active ACT Fluoride Active Extra Depth Orthopedic Shoes (1 Pair) with Customized Heat Molded Multidensity Innersoles (3 Pair) as directed Dx: NIDDM (E11.9), Hammertoe Foot Deformity (M20.41,M20.42), Preulcerative Skin Lesion(s) (L85.1) 09/06/2023 Active Ciclopirox Olamine 0.77 % 1 application Externally Twice a day to skin of feet including between the toes; Duration: 30 days Active Atorvastatin Calcium 20 MG 1 tablet Orally Once a day; Duration: 30 day(s) Active diazePAM 5 MG 1 tablet as needed Orally Once a day Active Doxepin HCl 10 MG 1 capsule at bedtime Orally Once a day; Duration: 30 day(s) Active Citrucel - as directed Orally Active Clotrimazole 1 % 1 application Externally Twice a day; Duration: 14 day(s) Active Sarles Saline Nasal Gel - as directed Nasally Active Flunisolide 25 MCG/ACT (0.025%) as directed Nasally Active Gabapentin 300 MG 1 capsule Orally Onc e a day; Duration: 30 day(s) Active Hydrocort-Pramoxine (Perianal) 2.5-1 % 1 application Externally Three times a day Active Hydrocortisone 2.5 % 1 application Externally Once a day Active Fish Oil 1000 MG 1 capsule Orally Onc e a day; Duration: 30 day(s) Active Ketoconazole 2 % 1 application Externally Once a day; Duration: 14 day(s) Active Latanoprost 0.005 % 1 drop into affected eye in the evening Ophthalmic Once a day Active Lisinopril 5 MG 1 tablet Orally Once a day; Duration: 30 day(s) Active PARoxetine HCl 10 MG 1 tablet in the morning Orally Once a day; Duration: 30 day(s) Active Pradaxa 150 MG 1 capsule Orally Twice a day; Duration: 30 day(s) Active Vitamin D Active Ketoconazole Oral pill Active Refresh Optive Advanced Active Sotalol HCl 80 MG 1 tablet Orally ever y 12 hrs; Duration: 30 day(s) Active Tretinoin 0.025 % 1 application in the evening to face Externally Once a day Active Cephalexin 500 MG 1 capsule Orally every 12 hrs; Duration: 7 day(s) 05/29/2024 Active Encounters Encounter Location Date Provider Diagnosis [facility] [address] [address] 09/25/2024 Delia Disla Plan Of Treatment Next Appt Details Provider Name:Delia montague, 07/03/2025 02:00:00 PM, [address] [place] [address], [phone], Progress Notes * Ilan PISANOOB:1940 (84 yo F)Acc No.[id number]:09/25/2024 Progress Note Patient: Jessenia CHAIDEZ Provider: Pati Disla DPM :1940 A ge:84 Y S ex:Female Date:09/25/2024 Address:[address] [place] [address], [facility] [address], [place], [place] Pcp:Pepito Chapa Subjective: * Chief Complaints: * [address] Hernandez. * HPI: A t Risk footcare: Pt States Last PCP Visit: D ate: 1 * Medical History: * Medications: T aking Ketoconazole , Notes to Pharmacist: Oral pill, Taking Vitamin D , Taking Tretinoin 0.025 % Cream 1 application in the evening to face Externally Once a day , Taking Sotalol HCl 80 MG Tablet 1 tablet Orally every 12 hrs , Taking Refresh Optive Advanced , Taking Pradaxa 150 MG Capsule 1 capsule Orally Twice a day , Taking PARoxetine HCl 10 MG Tablet 1 tablet in the morning Orally Once a day , Taking Lisinopril 5 MG Tablet 1 tablet Orally Once a day , Taking Latanoprost 0.005 % Solution 1 drop into affected eye in the evening Ophthalmic Once a day , Taking Ketoconazole 2 % Cream 1 application Externally Once a day , Taking Hydrocortisone 2.5 % Lotion 1 application Externally Once a day , Taking Hydrocort-Pramoxine (Perianal) 2.5-1 % Cream 1 application Externally Three times a day , Taking Gabapentin 300 MG Capsule 1 capsule Orally Once a day , Taking Flunisolide 25 MCG/ACT (0.025%) Solution as directed Nasally , Taking Fish Oil 1000 MG Capsule 1 capsule Orally Once a day , Taking Doxepin HCl 10 MG Capsule 1 capsule at bedtime Orally Once a day , Taking diazePAM 5 MG Tablet 1 tablet as needed Orally Once a day , Taking Clotrimazole 1 % Cream 1 application Externally Twice a day , Taking Citrucel - Powder as directed Orally , Taking Sarles Saline Nasal Gel - Swab as directed Nasally , Taking Atorvastatin Calcium 20 MG Tablet 1 tablet Orally Once a day , Taking ACT Fluoride , Taking Acetaminophen 650 MG/20.3ML Suspension as directed Orally , Notes to Pharmacist: every 8 hours as needed, Taking Extra Depth Orthopedic Shoes (1 Pair) with Customized Heat Molded Multidensity Innersoles (3 Pair) as directed Dx: NIDDM (E11.9), Hammertoe Foot Deformity (M20.41,M20.42), Preulcerative Skin Lesion(s) (L85.1) , Taking Ciclopirox Olamine 0.77 % Cream 1 application Externally Twice a day to skin of feet including between the toes , Taking Cephalexin 500 MG Capsule 1 capsule Orally every 12 hrs Objective: * Vitals: Assessment: Plan: * Treatment: * Images: * The named appointment provid er may or may not be the originator of this progress note, and it is not deemed complete until electronically signed by the appointment provider. Sign off status: Pending * Provider: Pati Disla DPM Date: 0 09/25/2024 Generated for Norma asher/Amy/Refugio on: 1 07/22/2024 05:58 PM EST History and Physical Notes * HPI (History of Present Illness) Category Sub-Category Detail Notes Category Not es At Risk footcare Pt States Last PCP Visit: Date:: 03/28/20 24
--- NOTE | 2025-05-21 13:54 | MHC.OFFVIS ---
Vital Signs 05/21/25 13:55 Height 5 ft 3 in Weight 189 lb 9.561 oz BMI 33.6 BP 130/80 Blood Pressure Location Lt brachial Position Sitting Pulse 70 Pulse Source Pulse Oximeter Intake Visit Reasons: 6 mth f/up w/ [facility] DC Intake Note: 6 wk f/up- [facility] [employer] Required: No Accompanied by: Self / Same As Patient Allergies Penicillins (PENICILLINS) Allergy (Mild, Verified 11/19/24 13:13) RASH house dust Allergy (Unknown, Verified 11/19/24 13:13) Unknown mold Allergy (Unknown, Verified 11/19/24 13:13) Unknown lactose Adverse Reaction (Unknown, Verified 11/19/24 13:13) Unknown Medication List - Last Reconciled 05/21/25 by Aman Avalos MD acetaminophen ER 650 mg PO Q8H PRN apixaban (Eliquis) 5 mg PO BID atorvastatin 20 mg PO DAILY cholecalciferol (vitamin D3) (Vitamin D3) 50 mcg PO DAILY clotrimazole 1% appl topical BID diazepam 2.5 mg PO BID PRN diltiazem HCl ER (DILT-XR) 180 mg PO DAILY doxepin 10 mg PO BEDTIME furosemide 40 mg PO BID hydrocortisone 2.5% appl topical 2XW ipratropium bromide 2 sprays intranasal Q12H ketoconazole 2% appl topical DAILY latanoprost 0.005% 1 drp ophthalmic (eye) BEDTIME lisinopril 5 mg PO DAILY methylcellulose (laxative) ea PO paroxetine HCl 10 mg PO DAILY sodium chloride-aloe vera 1 ea intranasal BEDTIME sodium chloride-aloe vera ([place] Saline Gel nasal spray) 1 spray intranasal BEDTIME PRN sotalol (Sotalol AF) 80 mg PO BID tretinoin 0.025% appl topical BEDTIME HPI Comments Details: Zeenat comes for follow-up. She has currently suffering from some finally with a viral syndrome with bronchitis currently undergoing treatment through your office. She says she feels weak and tired because of that. She has significant amount of cough and she had self reduce her Lasix for few days because of incontinence. Now she is back to her usual dose of Lasix. She denies any worsening orthopnea, PND, leg edema. No prolonged palpitation irregular heartbeat. No lightheadedness, syncope. No exertional chest pain. No bleeding issues or neurologic events. [facility] Medical History (HFpEF) heart failure with preserved ejection fraction HTN (hypertension) Cardiac pacemaker in situ Paroxysmal atrial fibrillation Complete heart block Surgical History Hx of discectomy Hx of angioplasty Hx of hysterectomy Hx of colonoscopy Family History Father CHF (congestive heart failure) CVD (cardiovascular disease) Mother CVD (cardiovascular disease) Stroke Alzheimer disease Son CVD (cardiovascular disease) HTN (hypertension) Social History Alcohol intake: never Patient Tobacco Use Status: Never used Tobacco Review of Systems Const Denies chills, Denies fatigue, Denies fever(s), Denies frequent falls, Denies weakness, Denies weight gain and Denies weight loss ENT Denies dizziness Card Denies chest pain, Denies leg edema, Denies lightheadedness, Denies palpitations, Denies dyspnea and Denies dyspnea on exertion Resp Denies cough, Denies dyspnea and Denies dyspnea on exertion GI Denies hematochezia Musc Denies abnormal gait, Denies muscle weakness, Denies numbness, Denies radiating pain into limb and Denies tingling Neuro Denies abnormal gait, Denies dizziness, Denies frequent falls, Denies numbness, Denies tingling and Denies weakness Endo Denies fatigue and Denies palpitations Physical Exam Vital Signs: Last Vital Signs Pulse 70 05/21/25 13:55 BP 130/80 05/21/25 13:55 BMI result Body Mass Index 33.6 Const General: cooperative, healthy appearing, comfortable and no acute distress Orientation/consciousness: patient oriented x3 Neck Neck: Yes normal visual inspection Resp Effort & Inspection: normal respiratory effort Auscultation: clear to auscultation bilaterally, no rales, no rhonchi and no wheezes Cardio Rate: regular rate Rhythm: regular rhythm Heart sounds: S1 normal heart sound present, S2 normal heart sound present, no gallops, no murmurs and no rubs Neuro General: patient oriented x3 Extrem General: Yes normal to inspection and No no pedal edema Psych Appearance: grossly normal Mental Status: mental status grossly normal Speech and movement: Normal speech and movement present Office Procedures Cardiac Device Check Cardiac Device Check Details: Dual-chamber [place] pacemaker in place. Programmed in DDD at 60 beats per minute. Atrial ventricular capture thresholds adequate and in auto capture mode. Atrial sensing is excellent. Lead impedance within normal limits. Battery life is at about 10 years. No episodes of atrial fibrillation noted. Ventricularly pacer dependent [id number] Cardiac Device Check, pacemaker dual lead Procedure code (CPT) selection complete EKG Details: EKG shows atrially sensed, ventricularly paced rhythm with measured JT prolongation index of 106 milliseconds which is within acceptable limits [id number], Complete Assessment & Plan Assessment & Plan (1) Paroxysmal atrial fibrillation: Comment: Has done extremely well with rhythm control approach. Currently suppressed on sotalol therapy Code(s): I48.0 - Paroxysmal atrial fibrillation Category: Medical Plan: Paroxysmal atrial fibrillation has done well with rhythm control approach has been suppressed on sotalol therapy. She has done extremely well with rhythm control approach will continue pursue the same. Semi annual renal function test should be pursued. Continue full oral anticoagulation with Eliquis tolerating well. Semi annual renal function test and annual CBC should be checked. Avoidance of stimulants was discussed. Will continue monitor pacer telemetry. (2) (HFpEF) heart failure with preserved ejection fraction: Code(s): I50.30 - Unspecified diastolic (congestive) heart failure Category: Medical Plan: Heart failure preserved ejection fraction, clinically euvolemic and well compensated current diuretic dose. Has done well with rhythm control approach with controlled heart failure symptoms. Daily weight monitoring avoidance salt loading was discussed. Continue current diuretic regimen. Continue optimize blood pressure. Daily weight monitoring avoidance salt loading was discussed. Maintain adequate physical activity. (3) Cardiac pacemaker in situ: Comment: Dual-chamber [place] Code(s): Z95.0 - Presence of cardiac pacemaker Category: Medical Plan: Cardiac pacemaker in-situ for complete heart block. Pacemaker is working well. Reprogrammed for adequate functioning. Continue follow remotely and follow up in the clinic in 6 months time. Will follow up in the clinic in 6 months time, sooner PRN. Thank you for allowing me to partake in her care Coding Level of Care Code Est Pt Level 4 (69463) Diagnoses Paroxysmal atrial fibrillation I48.0 (HFpEF) heart failure with preserved ejection fraction I50.30 Cardiac pacemaker in situ Z95.0 CPT Codes Cardiac Device Check - Cardiac Device 2: [id number]-[id number] Cardiac Device Check, pacemaker dual lead ([id number]) EKG - CPT: 84669-[id number], Complete ([id number])
[2025-05-21 13:55] VITALS: BP 130/80; PULSE 70; BMI 33.6
--- OUTSIDE RECORDS SUMMARY | 2025-05-21 14:45 | XMS_ITS | Encounter Summary ---
Author Organization [facility] Address [address] [place] [address] Care Team Providers Care Railroad Signal Operator Name Role Phone Pepito Chapa MD Primary Care Pr ovider Encounter Details Date Type Department Care Team (Late Contact Info) Description 05/21/2025 2:45 PM EST Lab Draw [address] Decreased renal function Social History Tobacco Use Types Packs/Day Years Used Date Smoking Tobacco: Never Smokeless Tobacco: Never Alcohol Use Standard Drinks/Week Comments No 0 (1 standard drink = 0.6 oz pur e alcohol) Interpersonal Safety Answer Date Record ed Physical Abuse Unrecognized value 10/19/2024 Verbal Abuse Unrecognized value 10/19/2024 Comments Unknown Sex and Gender Information Value Date Recorded Sex Assigned at Female 09/04/2024 2:11 PM EDT Legal Sex Female 10:43 AM EST Gender Identity Female 09/04/2024 2:11 PM EDT Sexual Orientation Straight 09/04/2024 2: 11 PM EDT documented as of this encounter Plan of Treatment Upcoming Encounters Date Type Department Care Team (Late Contact Info) Description 09/04/2025 1:30 PM EDT Office Visit Adult Medicine [address] [phone] Pepito Chapa MD [address] [place], [place] [address] documented as of this encounter Procedures Procedure Name Priority Date/Time Associated Diagnosis Comments BASIC METABOLIC PANEL Routine 05/21/2025 2:54 PM EST Decreased renal function documented in this encounter Results * (ABNORMAL) Basic metabolic panel (05/21/2025 2:54 PM EST) Sodium 138 133 - 145 mmol/L 05/21/2025 5:51 PM [facility] Potassium 4.3 3.5 - 5.5 mmol/L 05/21/2025 5:51 PM [facility] Chloride 100 96 - 110 mmol/L 05/21/2025 5:51 PM [facility] CO2 27 21 - 32 mmol/L 05/21/2025 5:51 PM [facility] Anion Gap 11 3 - 11 05/21/2025 5:51 PM [facility] Glucose 78 70 - 100 mg/dL 05/21/2025 5:51 PM [facility] BUN 14 5 - 25 mg/dL 05/21/2025 5:51 PM [facility] Creatinine 0.97 0.50 - 1.10 mg/dL 05/21/2025 5:51 PM [facility] eGFR 58(L) >=60 mL/min/1. 73m2 05/21/2025 5:51 PM [facility] Comment:Calculation based on the Chronic Kidney Disease Epidemiology Collaboration (CKD-EPI) equation refit without adjustment for race. BUN/Creatinine Ratio 14.4 05/21/2025 5:51 PM [facility] Calcium 9.4 8.5 - 10.5 mg/dL 05/21/2025 5:51 PM EST [facility] Blood Venous blood specimen / Unknown Venipuncture / Unknown 05/21/2025 2:54 PM EST 05/21/2025 2:54 PM EST Pepito Chapa MD LAB BLOOD ORDERA BLES Final Result [facility] [address] [place] [address], documented in this encounter Visit Diagnoses Diagnosis Decreased renal function documented in this encounter Additional Health Concerns Assessment Noted Time PHQ-9 Depression Total Score: 1 05/06/20 25 1:05 PM EST documented as of this encounter Care Teams Railroad Signal Operator Relationship Specialty Start Date End Date Pepito Chapa MD [address], [place] PCP - General Internal Medicine 12/28/21 documented as of this encounter
--- OUTSIDE RECORDS SUMMARY | 2025-05-21 17:59 | XMS_ITS | Clinical Summary ---
Author Organization [facility] [address] [facility] Address [address], [place] Phone Care Team Providers Care Health Club Manager Name Role Phone Pepito Chapa MD Primary Care Pr ovider Allergies Active Allergy Reactions Criticality Noted Date Comments House Dust 07/02/2019 Lactose 07/02/2019 Mold 06/17/2021 Penicillins Rash 06/27/2006 Medications dilTIAZem XR (DILACOR XR) 180 mg 24 hr capsule Take 1 capsule (180 mg total) by mouth 1 (one) time each day. 04/05/20 22 Active sotaloL (BETAPACE) 80 mg tablet Take 1 tablet (80 mg total) by mouth 2 (two) times a day. 03/30/20 22 Active furosemide (LASIX) 40 mg tablet Take 0.5 tablets (20 mg total) by mouth 2 (two) times a day. 03/02/20 22 Active PARoxetine (PAXIL) 10 mg tablet Take 1 tablet (10 mg total) by mouth 1 (one) time each day. 04/22/20 21 Active doxepin (SINEquan) 10 mg capsule Take 1 capsule by mouth at bedtime. 04/22/20 Active latanoprost (XALATAN) 0.005 % ophthalmic solution Place 1 Drop into both eyes daily. 06/18/19 17 Active apixaban (ELIQUIS) 5 mg tablet Take 1 tablet (5 mg total) by mouth 2 (two) times a day. Active diazePAM (VALIUM) 5 mg tablet Take 0.5 tablets (2.5 mg total) by mouth every 12 (twelve) hours if needed for anxiety. 08/23/19 25 Active atorvastatin (LIPITOR) 20 mg tabletIndications:Mi xed hyperlipidemia TAKE 1 TABLET BY MOUTH AT BEDTIME. AT BEDTIME. 90 tablet 1 11/28/19 25 Active Vitamin D3 50 mcg (2,000 unit) capsule TAKE 1 CAPSULE BY MOUTH EVERY DAY 90 capsule 1 12/18/19 25 Active lisinopriL (PRINIVIL,ZESTRIL) 5 mg tabletIndications:Ty pe 2 diabetes mellitus with microalbuminuria (CMS/HCC V24, CMS/HCC V28) TAKE 2 TABLETS BY MOUTH 1 TIME EACH DAY. 180 tablet 1 01/15/20 25 Active benzonatate (TESSALON) 100 mg capsuleIndications:A cute cough Take 1 capsule (100 mg total) by mouth 3 (three) times a day if needed for cough. Do not crush or chew. 42 capsule 05/06/20 25 025 Active polyethylene glycol (Gavilax) 17 gram/dose oral powderIndications:Ch ronic idiopathic constipation Take 17 g by mouth 1 (one) time each day. 1530 g 1 05/06/20 25 026 Active senna-docusate (Senna Plus) 8.6-50 mg per tabletIndications:Ch ronic idiopathic constipation Take 1 tablet by mouth 1 (one) time each day. 90 tablet 1 05/06/20 25 Active Gavilax 17 gram/dose oral powder DISSOLVE 17 GRAMS IN WATER AND TAKE ONCE DAILY IF NEEDED FOR CONSTIPATION . 510 g 1 11/13/19 25 025 Discontin ued(Reord er) Senna Plus 8.6-50 mg per tabletIndications:Ch ronic idiopathic constipation TAKE 1 TABLET BY MOUTH 1 TIME EACH DAY. 90 tablet 1 12/18/19 25 025 Discontin ued(Reord er) Active Problems Problem Noted Date Diagnosed Date Stress incontinence 05/06/2025 Assessment & Plan (05/06/2025 1:44 PM EST): Declines referral to urogyn Will check urine studies Orders: Culture urine; Future Urinalysis with reflex microscopic; Future Renal cyst 10/09/2024 Overview (10/09/2024): Left- referred to urology Assessment & Plan (01/03/2025 1:06 PM EDT): Continue follow up with [facility] urology States she had a CT scan done on 12/18/24 at [facility]. I do not have records for review Constipation 08/22/2024 Assessment & Plan (05/06/2025 1:44 PM EST): Continue current regimen Orders: polyethylene glycol (Gavilax) 17 gram/dose oral powder; Take 17 g by mouth 1 (one) time each day. senna-docusate (Senna Plus) 8.6-50 mg per tablet; Take 1 tablet by mouth 1 (one) time each day. Assessment & Plan (01/03/2025 12:59 PM EDT): Well controlled continue miralax daily and pericolac Assessment & Plan (10/09/2024 1:45 PM EDT): Resolved with daily Miralax Assessment & Plan (08/29/2024 12:35 PM EDT): Continue pericolace daily Use miralax as needed Follow up with GI Orders: Ambulatory referral to Gastroenterology; Future senna-docusate (PERICOLACE) 8.6-50 mg per tablet; Take 1 tablet by mouth 1 (one) time each day. Subclinical hypothyroidism 05/16/2024 Assessment & Plan (05/06/2025 1:44 PM EST): Last TSH in January was wnl Assessment & Plan (01/03/2025 12:59 PM EDT): Will update TSH Orders: Thyroid stimulating hormone with reflex to free t4 and free t3; Future Seborrheic keratoses 07/08/2023 Osteopenia 11/11/2022 Assessment & Plan (05/06/2025 1:44 PM EST): Continue vitamin D daily Due for DXA scan which is ordered Orders: BD Bone Density DXA Axial Skeleton; Future Assessment & Plan (01/03/2025 12:59 PM EDT): Continue vitamin D daily She declines DXA scan at this time Orders: Vitamin D 25 hydroxy; Future Assessment & Plan (05/10/2024 4:28 PM EST): Continue vitamin D daily. Up to date with DXA scan Orders: Vitamin D 25 hydroxy; Future Knee osteoarthritis 06/09/2022 Overview (03/26/2024): Bilateral XRAY 06/09/22 Eczema 05/05/2020 Chronic rhinitis 09/06/2019 Obstructive sleep apnea 02/22/2019 Overview (03/26/2024): [facility] Polysomnogram: Date 02/15/2019; Wt 195#; BMI 35; SE 38%; SM 91%; REM 8%; RDI 8 (AHI 8), REM (RDI 35 - AHI 30), Central apneas 2; Obstructive apneas 0; Mixed apneas 0; hypopneas 19; RERAs 1; average oxygen saturation 92% (lowest 80% - without saturations <88% for 5% or more of study); PLMs 0.Prestudy ESS 1; 0/4 RLS symptoms. - Obstructive Sleep Apnea - mild overall and severe in REM; mostly hypopneas; without sleep related hypoventilation by 2019 polysomnogram. Assessment & Plan (05/06/2025 1:44 PM EST): See HPI Declines treatment Assessment & Plan (05/10/2024 4:28 PM EST): She has fatigue. Reports that she cannot tolerate CPAP machine. 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 Due for A1c and urine microalbumin which are ordered Orders: Microalbumin creatinine urine ratio; Future Hemoglobin A1c; Future Assessment & Plan (05/10/2024 4:28 PM EST): Last A1c in November was 6. Due for A1c which is ordered. Orders: Hemoglobin A1c; Future lisinopriL (PRINIVIL,ZESTRIL) 5 mg tablet; Take 1 tablet (5 mg total) by mouth 1 (one) time each day. 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 Continue with therapy every 3-4 weeks. Follows with [facility]. Assessment & Plan (05/10/2024 4:28 PM EST): Continue paroxetine 10 mg daily, valium prn and doxepin 10 mg nightly. Continue therapy every 3-4 weeks. Follows with [facility]. Atrial fibrillation 04/18/2014 Assessment & Plan (05/06/2025 1:44 PM EST): continue Furosemide (now taking 20mg due to increased urinary frequency /incontinence with her cough)-she will go back up to 40mg BID once cough resolves; continue sotalol 80mg BID and eliquis 5mg BID Assessment & Plan (01/03/2025 12:59 PM EDT): Continue diltiazem 180mg QDAY, sotalol 80mg BID and eliquis 5mg BID Continue cardiology follow up with Dr. 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 States that she just saw her oxygen equipment technician 2 days ago and was told that the battery needs to be replaced. She is pending an appointment for this to be done. CHF (congestive heart failure) 04/18/2014 Assessment & Plan (05/06/2025 1:44 PM EST): continue Furosemide (now taking 20mg due to increased urinary frequency /incontinence with her cough)-she will go back up to 40mg BID once cough resolves; continue sotalol 80mg BID Assessment & Plan (01/03/2025 12:59 PM EDT): Continue diltiazem 180mg QDAY, Furosemide 40mg BID, sotalol 80mg BID Continue cardiology follow up with Dr. Avalos Assessment & Plan (05/10/2024 4:28 PM EST): Continue Furosemide 40mg BID Fibromyalgia 04/18/2014 Assessment & Plan (01/03/2025 12:59 PM EDT): Controlled without meds Assessment & Plan (05/10/2024 4:28 PM EST): Stable. Not routinely using gabapentin 300mg Glaucoma 04/18/2014 HTN (hypertension) 04/18/2014 Assessment & Plan (05/06/2025 1:44 PM EST): Stable Continue diltiazem 180mg QDAY Assessment & Plan (01/03/2025 12:59 PM EDT): Controlled. Continue diltiazem 180mg QDAY, Furosemide 40mg BID, sotalol 80mg BID Assessment & Plan (05/10/2024 4:28 PM EST): BP is well controlled. Continue current meds Hyperlipidemia 04/18/2014 Assessment & Plan (05/06/2025 1:44 PM EST): LDL is at goal of <70 Continue atorvastatin 20mg nightly Orders: Comprehensive metabolic panel; Future Assessment & Plan (01/03/2025 12:59 PM EDT): Continue atorvastatin 20mg nightly Orders: Lipid panel with reflex to direct LDL; Future Assessment & Plan (05/10/2024 4:28 PM EST): Continue atorvastatin Orders: Lipid panel with reflex to direct LDL; Future Aspartate aminotransferase; Future Alanine aminotransferase; Future atorvastatin (LIPITOR) 20 mg tablet; Take 1 tablet (20 mg total) by mouth at bedtime. at bedtime. S/P placement of cardiac pacemaker 04/18/2014 Assessment & Plan (05/10/2024 4:28 PM EST): Has pacemaker in place. States that she just saw her oxygen equipment technician 2 days ago and was told that the battery needs to be replaced. She is pending an appointment for this to be done. 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 Resolved Problems Problem Noted Date Diagnosed Date Resolved Date Urinary tract infection with hematuria, site unspecified 09/04/2024 01/03/2025 Diverticulitis 08/21/2024 01/03/2025 Encounters Date Type Department Care Team Description 05/21/2025 2:45 PM EST Lab Draw Station - [address] Decreased renal function 05/09/2025 1:05 PM EST Lab Draw Station [address] Stress incontinence 05/07/2025 Results Follow-Up Adult [address] [phone] Pepito Chapa MD 05/06/2025 1:50 PM EST Lab Draw [facility] - [address] Mixed hyperlipidemia; Type 2 diabetes mellitus with microalbuminuria (CMS/HCC V24, CMS/HCC V28) 05/06/2025 1:15 PM EST - 05/06/2025 11:59 PM EST Hospital Encounter [address] [phone] Acute cough Discharge Disposition: Home or Self Care 05/06/2025 12:30 PM EST Office Visit Adult Medicine [address] [phone] Pepito Chapa MD Primary hypertension (Primary Dx); Longstanding persistent atrial fibrillation (CMS/HCC V24, CMS/HCC V28); Chronic diastolic congestive heart failure (CMS/HCC V24, CMS/HCC V28); AV block; Mixed hyperlipidemia; Type 2 diabetes mellitus with microalbuminuria (CMS/HCC V24, CMS/HCC V28); Subclinical hypothyroidism; Chronic idiopathic constipation; Current mild episode of major depressive disorder without prior episode (CMS/HCC V24); Osteopenia of multiple sites; Acute cough; Obstructive sleep apnea; Stress incontinence from Last 3 Months Immunizations Immunization Administration Dates Next Due Pfizer (ages 12 & older) Bivalent, COVID-19 02/2023 Pfizer SARS-CoV-2 COVID-19, mRNA, LNP-S, preservative free 02/18/2021 Pneumococcal conjugate 13 va lent (Prevnar 13, PCV13) 2mo and older 10/06/2016 Pneumococcal polysaccharide 23 valent (Pneumovax 23) 2yo and older 09/11/2014 Tdap Tetanus diptheria acell ular pertussis (Boostrix; Adacel) 7yo and older 02/11/2017 Surgical History Surgery Date Site/Laterality Comments HYSTERECTOMY PROCEDURE: HISTORICAL HYSTERECTOMY PACEMAKER IMPLANT PROCEDURE: HISTORICAL PACEMAKER OTHER SURGICAL HISTORY PROCEDURE: OH ANESTHESIA CERVICAL SPINE & CORD NOS; COMMENT: cer spine disectomy OTHER SURGICAL HISTORY PROCEDURE: OH EXC CYST/ABERRANT BREAST TISSUE OPEN 1/> LESION; COMMENT: benign COLONOSCOPY W/ BIOPSIES 09/14/10 PROCEDURE: OH COLONOSCOPY STOMA W/BIOPSY SINGLE/MULTIPLE; COMMENT: hyperplastic 7-10 yr repeat UPPER GASTROINTESTINAL ENDOSCOPY PROCEDURE: UPPER GI ENDOSCOPY/EXAM; COMMENT: barretts BREAST BIOPSY 1975ish Left PROCEDURE: BX BREAST; PERC NEEDLE CORE W/IMAG GUID; COMMENT: LT. BREAST BX X 2-BENIGN CATARACT EXTRACTION 08/2018 Bilateral PROCEDURE: HISTORICAL CATARACT REMOVAL Medical History Medical History Date Comments Impaired fasting glucose 05/21/2014 DX:Impa ired fasting glucose Depression DX:Depression Hyperlipidemia 04/18/2014 DX:Hyperlipidemi a MDD (major depressive disorder) 05/09/2014 DX:MDD (major depressive disorder) Other specified personal his tory presenting hazards to health(V15.89) DX:Other specifie d personal history presenting hazards to health(V15.89); COMMENT: PT. STATES UTERINE [place] Elevated liver enzymes 02/23/2019 DX:Elevat ed liver enzymes Pleural effusion 04/18/2014 DX:Pleural effu kevyn Pneumonia 04/18/2014 DX:Pneumonia Epistaxis 05/05/2020 DX:Epistaxis Pacemaker Hypertension Atrial fibrillation ([facility] V24, [facility] V28) CHF (congestive heart failur e) ([facility] V24, [facility] V28) Urinary tract infection with hematuria, site unspecified 09/04/2024 Diverticulitis 08/21/2024 Family History Medical History Relation Name Comments Heart failure Father skin cancer Hypertension Mother chol, mi, strok e,dementia Breast cancer Neg Hx Relation Name Status Comments Father Mother Social History Tobacco Use Types Packs/Day Years Used Date Smoking Tobacco: Never Smokeless Tobacco: Never Tobacco Cessation:Counseling Given: Not Answered Alcohol Use Standard Drinks/Week Comments No 0 [...] Orientation Straight 09/04/2024 2: 11 PM EDT Last Filed Vital Signs Vital Sign Reading Time Taken Comments Blood Pressure 133/80 05/06/2025 12:38 PM EST a Pulse 86 05/06/2025 12:30 PM EST Temperature 37.1 C (98.8 F) 05/06/2025 12:30 PM EST Respiratory Rate 16 05/06/2025 12:30 PM EST Oxygen Saturation 94% 05/06/2025 12:38 PM EST Inhaled Oxygen Concentration - - Weight 88 kg (194 lb) 05/06/2025 12:30 PM EST Height 165.1 cm (5' 5 ) 05/06/2025 12:30 PM EST Body Mass Index 32.28 05/06/2025 12:30 PM EST Plan of Treatment Upcoming Encounters Date Type Department Care Team (Late st Contact Info) Description 09/04/2025 1:30 PM EDT Office Visit Adult Medicine [address] [phone] Pepito Chapa MD [address] [place] [address] Health Maintenance Due Date Last Done Comments Drug Screen 1940 Non-Opioid Controlled Substance Agreement 1940 Zoster Vaccines (1 of 2) 1961 RSV Immunization Adult Patients (1 - 1-dose 75+ series) 2017 Social Influencers of Health Screening 05/15/2022 Medicare Annual Wellness Visit 11/06/2024 11/07/2023 Diabetes: Annual Foot Exam 01/30/2025 01/31/2024 COVID-19 Vaccine ( season) 2025 07/09/2024, 01/12/2023, 09/30/2021, Additional history exists Falls Risk Assessment 10/19/2025 10/19/2024, 024 Diabetes: Blood Sugar Control Test (HGBA1C) 11/04/2025 05/06/2025, 01/08/2025, 08/29/2024, Additional history exists Diabetes: Annual Urine Albumin-Creatinine Ratio (uACR) 01/09/2026 01/09/2025, 08/29/2024, 07/11/2023 Diabetes: Annual Retina Eye Exam 03/06/2026 03/06/2025, 07/07/2023 Diabetes: Annual GFR (Glomerular Filtration Rate) 05/06/2026 05/21/2025, 05/06/2025, 01/08/2025, Additional history exists Hypertension/CHF/CAD Annual BMP Blood Test 05/06/2026 05/21/2025, 05/06/2025, 01/08/2025, Additional history exists DTaP,Tdap,and Td Vaccines (2 - Td or Tdap) 02/11/2027 02/11/2017 Cholesterol Screening (Lipid Panel) 01/08/2030 01/08/2025, 05/16/2024, 03/02/2023 Colorectal Cancer Screening: Colonoscopy 10/20/2031 10/19/2024, 09/14/2010 Osteoporosis Screening (Bone Density Screening) 11/09/2032 11/09/2022, 02/22/2018 Pneumococcal Vaccine: 50+ Years Completed 10/06/2016, 09/11/2014 Depression Screening Completed 05/06/2025, 11/07/19 24 HIB Vaccines Aged Out No longer eligi [...] on patient's age to complete this topic Influenza Vaccine Discontinued MMR Vaccines Aged Out No longer eligi ble based on patient's age to complete this topic Meningococcal ACWY Vaccine Aged Out N o longer eligible based on patient's age to complete this topic Meningococcal B Vaccine Aged Out No l onger eligible based on patient's age to complete this topic RSV Immunization Patients Under 20 months Aged Out No longer eligible based on patient's age to complete this topic Varicella Vaccines Aged Out No longer eligible based on patient's age to complete this topic Medical Devices Implanted Type Area Records Clerk Device Identifier Shelf Expiration Date Model / Serial / Lot Cardiac Pacemaker Cardiac Pacemaker Left: Chest Procedures Procedure Name Priority Date/Time Associated Diagnosis Comments BASIC METABOLIC PANEL Routine 05/21/2025 2:54 PM EST Decreased renal function URINALYSIS WITH REFLEX MICROSCOPIC Routine 05/09/2025 1:04 PM EST Stress incontinence URINALYSIS WITH REFLEX MICROSCOPIC Routine 05/09/2025 1:04 PM EST Stress incontinence CULTURE URINE Routine 05/09/2025 1:04 PM EST Stress incontinence HEMOGLOBIN A1C Routine 05/06/2025 2:04 PM EST Type 2 diabetes mellitus with microalbuminuria (CMS/HCC V24, CMS/HCC V28) COMPREHENSIVE METABOLIC PANEL Routine 05/06/2025 2:04 PM EST Mixed hyperlipidemia Type 2 diabetes mellitus with microalbuminuria (CMS/HCC V24, CMS/HCC V28) XR CHEST 2 VIEWS Routine 05/06/2025 1:38 PM EST Acute cough MICROALBUMIN CREATININE URINE RATIO Routine 01/09/2025 11:30 AM EDT Type 2 diabetes mellitus with microalbuminuria (CMS/HCC V24, CMS/HCC V28) LIPID PANEL WITH REFLEX TO DIRECT LDL Routine 01/08/2025 11:42 AM EDT Mixed hyperlipidemia COLONOSCOPY Routine 10/19/2024 9:35 AM EDT Positive colorectal cancer screening using Cologuard test DIABETES FOOT EXAM Routine 01/31/2024 DEPRESSION SCREENING Routine 11/07/2023 DXA BONE DENSITY STUDY 1+ SITS AXIAL SKEL Routine 11/09/2022 2:12 PM EDT Other specified disorders of bone density and structure, unspecified site from Last 3 Months or Most Recently Relevant to Health Maintenance Results * (ABNORMAL) Basic metabolic panel (05/21/2025 2:54 PM EST) Sodium 138 133 - 145 mmol/L 05/21/2025 5:51 PM [facility] Potassium 4.3 3.5 - 5.5 mmol/L 05/21/2025 5:51 PM [facility] Chloride 100 96 - 110 mmol/L 05/21/2025 5:51 PM [facility] CO2 27 21 - 32 mmol/L 05/21/2025 5:51 PM [facility] Anion Gap 11 3 - 11 05/21/2025 5:51 PM [facility] Glucose 78 70 - 100 mg/dL 05/21/2025 5:51 PM [facility] BUN 14 5 - 25 mg/dL 05/21/2025 5:51 PM [facility] Creatinine 0.97 0.50 - 1.10 mg/dL 05/21/2025 5:51 PM [facility] eGFR 58(L) >=60 mL/min/1. 73m2 05/21/2025 5:51 PM [facility] Comment:Calculation based on the Chronic Kidney Disease Epidemiology Collaboration (CKD-EPI) equation refit without adjustment for race. BUN/Creatinine Ratio 14.4 05/21/2025 5:51 PM [facility] Calcium 9.4 8.5 - 10.5 mg/dL 05/21/2025 5:51 PM [facility] Blood Venous blood specimen / Unknown Venipuncture / Unknown 05/21/2025 2:54 PM EST 05/21/2025 2:54 PM EST Pepito Chapa MD LAB BLOOD ORDERA BLES Final Result [facility] [address] [place] [address], [place] [phone] * Urinalysis with reflex microscopic (05/09/2025 1:04 PM EST) Specific [place] Urine 1.004 1.003 - 1.030 LAB URINALYSIS - AUTOMATED METHOD 05/09/2025 4:26 PM [facility] pH, Urine 7.0 5.0 - 8.0 pH LAB URINALYSIS - AUTOMATED METHOD 05/09/2025 4:26 PM [facility] Leukocytes, Urine Negative Negative LAB URINALYSIS - AUTOMATED METHOD 05/09/2025 4:26 PM [facility] Nitrite, Urine Negative Negative LAB URINALYSIS - AUTOMATED METHOD 05/09/2025 4:26 PM [facility] Protein, Urine Negative <=Trace mg/dL LAB URINALYSIS - AUTOMATED METHOD 05/09/2025 4:26 PM [facility] Glucose, Urine Negative Negative mg/dL LAB URINALYSIS - AUTOMATED METHOD 05/09/2025 4:26 PM [facility] Ketones, Urine Negative Negative mg/dL LAB URINALYSIS - AUTOMATED METHOD 05/09/2025 4:26 PM [facility] Urobilinogen, Urine 0.2 0.2 - 1.0 mg/dL LAB URINALYSIS - AUTOMATED METHOD 05/09/2025 4:26 PM [facility] Bilirubin, Urine Negative Negative LAB URINALYSIS - AUTOMATED METHOD 05/09/2025 4:26 PM [facility] Blood, Urine Negative Negative LAB URINALYSIS - AUTOMATED METHOD 05/09/2025 4:26 PM [facility] Urine Urine specimen obtained by clean catch procedure / Unknown Non-blood Collection / Unknown 05/09/2025 1:04 PM EST 05/09/2025 1:04 PM EST Pepito Chapa MD LAB URINE ORDERA BLES Final Result Performing Organization Address City/[facility]/ZIP Co de Phone Number [facility] [address] [place] [address], [place] [phone] * Culture urine (05/09/2025 1:04 PM EST) Culture, Urine 10,000-49,000 CFU/mL Mixed urogenital brandyn, no uropathogens present. Suggest repeat specimen if clinically indicated. 05/10/2025 8:50 AM [facility] Urine Urine specimen obtained by clean catch procedure / Unknown Non-blood Collection / Unknown 05/09/2025 1:04 PM EST 05/09/2025 1:04 PM EST Pepito Chapa MD LAB MICROBIOLOGY - GENERAL ORDERABLES Final Result [facility] [address] [place] [address], [place] [phone] * Hemoglobin A1c (05/06/2025 2:04 PM EST) Hemoglobin A1C 6.3 <6.5 % LAB CHEMISTRY METHOD 05/06/2025 7:53 PM [facility] Mean Bld Glu Estim. 134 mg/dL LAB CHEMISTRY METHOD 05/06/2025 7:53 PM [facility] Blood Venous blood specimen / Unknown Venipuncture / Unknown 05/06/2025 2:04 PM EST 05/06/2025 2:04 PM EST Pepito Chapa MD LAB BLOOD ORDERA BLES Final Result [facility] [address] [place] [address], [place] [phone] * (ABNORMAL) Comprehensive metabolic panel (05/06/2025 2:04 PM EST) Sodium 136 133 - 145 mmol/L 05/06/2025 4:54 PM [facility] Potassium 3.7 3.5 - 5.5 mmol/L 05/06/2025 4:54 PM [facility] Chloride 97 96 - 110 mmol/L 05/06/2025 4:54 PM [facility] CO2 26 21 - 32 mmol/L 05/06/2025 4:54 PM [facility] Anion Gap 13(H) 3 - 11 05/06/2025 4:54 PM [facility] Glucose 108(H) 70 - 100 mg/dL 05/06/2025 4:54 PM [facility] BUN 14 5 - 25 mg/dL 05/06/2025 4:54 PM [facility] Creatinine 1.07 0.50 - 1.10 mg/dL 05/06/2025 4:54 PM [facility] eGFR 52(L) >=60 mL/min/1. 73m2 05/06/2025 4:54 PM [facility] Comment:Calculation based on the Chronic Kidney Disease Epidemiology Collaboration (CKD-EPI) equation refit without adjustment for race. BUN/Creatinine Ratio 13.1 05/06/2025 4:54 PM [facility] Calcium 8.7 8.5 - 10.5 mg/dL 05/06/2025 4:54 PM [facility] AST (SGOT) 22 10 - 42 unit/L 05/06/2025 4:54 PM [facility] ALT (SGPT) 23 10 - 60 unit/L 05/06/2025 4:54 PM [facility] Alkaline Phosphatase 119 42 - 121 unit/L 05/06/2025 4:54 PM [facility] Total Protein 7.4 6.0 - 8.0 g/dL 05/06/2025 4:54 PM [facility] Albumin 4.7 3.2 - 5.0 g/dL 05/06/2025 4:54 PM [facility] Total Bilirubin 0.9 0.0 - 1.4 mg/dL 05/06/2025 4:54 PM [facility] Blood Venous blood specimen / Unknown Venipuncture / Unknown 05/06/2025 2:04 PM EST 05/06/2025 2:04 PM EST Pepito Chapa MD LAB BLOOD ORDERA BLES Final Result [facility] [address] [place] [address], [place] [phone] * XR Chest 2 Views (05/06/2025 1:38 PM EST) Anatomical Region Laterality Modality Body Radiographic Zainab ging 05/06/2025 2:52 PM EST Impressions 05/06/2025 2:54 PM EST No acute pulmonary pathology. -------- FINAL REPORT -------- Dictated By: Kristie Melvin Dictated Date: 05/06/2025 14:52 ET Assigned Physician: Kristie Melvin Reviewed and Electronically Signed By: Kristie Melvin Signed Date: 05/06/2025 14:54 ET Workstation ID: [id number] Transcribed By: Self Edit Transcribed Date: 05/06/2025 14:52 ET Narrative 05/06/2025 2:54 PM EST CHEST, TWO VIEWS HISTORY: Cough/bronchitis. TECHNIQUE: Frontal and lateral views of the chest. PRIOR: Chest x-ray 07/08/2023. FINDINGS: The lungs are clear. There is mild blunting of the left lateral costophrenic sulcus, probably not significantly changed. No pleural effusion is seen. No pneumothorax is seen. The cardiac diameter is within normal limits. No acute or aggressive appearing bony abnormalities are seen. There is degenerative change of the spine. Pacemaker is unchanged in position. Procedure Note Kristie Melvin MD - 05/06/2025 CHEST, TWO VIEWS HISTORY: Cough/bronchitis. TECHNIQUE: Frontal and lateral views of the chest. PRIOR: Chest x-ray 07/08/2023. FINDINGS: The lungs are clear. There is mild blunting of the left lateral costophrenic sulcus, probablynot significantly changed. No pleural effusion is seen. No pneumothorax is seen. The cardiac diameter is within normal limits. No acute or aggressive appearing bony abnormalities are seen. There isdegenerative change of the spine. Pacemaker is unchanged in position. IMPRESSION: No acute pulmonary pathology. -------- FINAL REPORT -------- Dictated By: Kristie Melvin Dictated Date: 05/06/2025 14:52 ET Assigned Physician: Kristie Melvin Reviewed and Electronically Signed By: Kristie Melvin Signed Date: 05/06/2025 14:54 ET Workstation ID: [id number] Transcribed By: Self Edit Transcribed Date: 05/06/2025 14:52 ET us Pepito Chapa MD IMG XR PROCEDURE S Final Result * (ABNORMAL) Microalbumin creatinine urine ratio (01/09/2025 11:30 AM EDT) Creatinine, Urine <13.0 mg/dL LAB CHEMISTRY METHOD 01/09/2025 3:51 PM EDT [facility] Microalb, Ur 8.6 0.0 - 29.0 mg/L LAB CHEMISTRY METHOD 01/09/2025 3:51 PM EDT [facility] Microalb/Creat Ratio >66(H) <30 mg/g creat LAB CHEMISTRY METHOD 01/09/2025 3:51 PM EDT [facility] Urine Urine specimen obtained by clean catch procedure / Unknown Non-blood Collection / Unknown 01/09/2025 11:30 AM EDT 01/09/2025 11:30 AM EDT Pepito Chapa MD LAB URINE ORDERA BLES Final Result [facility] [address] [place] [address], * (ABNORMAL) Lipid panel with reflex to direct LDL (01/08/2025 11:42 AM EDT) [facility] Cholesterol 147 0 - 200 mg/dL LAB CHEMISTRY METHOD 01/08/2025 3:24 PM EDT [facility] Triglycerides 212(H) 0 - 150 mg/dL LAB CHEMISTRY METHOD 01/08/2025 3:24 PM EDT [facility] HDL 42 >=40 mg/dL LAB CHEMISTRY METHOD 01/08/2025 3:24 PM EDT [facility] LDL Calculated 63 0 - 100 mg/dL LAB CHEMISTRY METHOD 01/08/2025 3:24 PM EDT [facility] Comment:Estimated LDL Calcul ated using equation: Total cholesterol - HDL cholesterol - (Triglycerides/5) VLDL Cholesterol [place] 42.4 mg/dL LAB CHEMISTRY METHOD 01/08/2025 3:24 PM EDT [facility] Non HDL Chol. (LDL+VLDL) 105 <145 mg/dL LAB CHEMISTRY METHOD 01/08/2025 3:24 PM EDT [facility] Chol/HDL Ratio 3.5 0.0 - 4.4 LAB CHEMISTRY METHOD 01/08/2025 3:24 PM EDT [facility] Blood Venous blood specimen / Unknown Venipuncture / Unknown 01/08/2025 11:42 AM EDT 01/08/2025 11:42 AM EDT Pepito Chapa MD LAB BLOOD ORDERA BLES Final Result [facility] [address] [place] [address], * COLONOSCOPY Anesthesia - MAC; [facility] ENDOSCOPY (10/19/2024 9:35 AM EDT) Anatomical Region Laterality Modality Endoscopy 10/19/2024 9:07 AM EDT Impressions 10/19/2024 9:36 AM EDT - The examined portion of the ileum was normal. - One 4 mm polyp in the ascending colon, removed with a cold snare. Resected and retrieved. - Diverticulosis in the sigmoid colon and in the descending colon. - Internal hemorrhoids. - The examination was otherwise normal. Recommendation: - Await pathology results. - Repeat colonoscopy is not recommended for surveillance. - Resume Eliquis (apixaban) at prior dose today. Narrative 10/19/2024 9:36 AM EDT [facility] Patient Name: Jessenia Pisano Procedure Date: 10/19/2024 9:07 AM Date of : 1940 Age: 84 Gender: Female Note Status: Finalized Attending MD: Yulissa Obrien MD, Procedure Date No Time: 10/19/2024 Procedure: Colonoscopy Indications: Positive Cologuard test Providers: Yulissa Obrien MD Referring MD: Pepito Chapa MD Medicines: Propofol per Anesthesia Complications: No immediate complications. Estimated Blood Loss: Estimated blood loss: none. Procedure: Pre-Anesthesia Assessment: - ASA Grade Assessment: II - A patient with mild systemic disease. After I obtained informed consent, the scope was passed under direct vision. Throughout the procedure, the patient's blood pressure, pulse, and oxygen saturations were monitored continuously.The Colonoscope was introduced through the anus and advanced to the terminal ileum. The colonoscopy was performed without difficulty. The patient tolerated the procedure well. The quality of the bowel preparation was adequate. Findings: The perianal and digital rectal examinations were normal. The terminal ileum appeared normal. A 4 mm polyp was found in the ascending colon. The polyp was semi-pedunculated. The polyp was removed with a cold snare. Resection and retrieval were complete. A few small-mouthed diverticula were found in the sigmoid colon and descending colon. Internal hemorrhoids were found during retroflexion. The hemorrhoids were Grade I (internal hemorrhoids that do not prolapse). The exam was otherwise without abnormality. Procedure Code(s): --- Professional --- 06944, Colonoscopy, flexible; with removal of tumor(s), polyp(s), or other lesion(s) by snare technique Diagnosis Code(s): --- Professional --- K64.0, First degree hemorrhoids D12.2, Benign neoplasm of ascending colon R19.5, Other fecal abnormalities CPT copyright 2020 [employer]. All rights reserved. The codes documented in this report are preliminary and upon assistant sales center manager review may be revised to meet current compliance requirements. Yulissa Obrien MD 10/19/2024 9:35:55 AM This report has been signed electronically.Yulissa Obrien MD Number of Addenda: 0 Note Initiated On: 10/19/2024 9:07 AM Scope In: Scope Out: Endoscopy Department at [facility] - [address] [place] [phone] Procedure Note Yulissa Obrien MD - 10/19/2024 [facility] GI Patient Name: Jessenia Pisano Procedure Date: 10/19/2024 9:07 AM Date of : 1940 Age: 84 Gender: Female Note Status: Finalized Attending MD: Yulissa Obrien MD, Procedure Date No Time: 10/19/2024 Procedure: Colonoscopy Indications: Positive Cologuard test Providers: Yulissa Obrien MD Referring MD: Pepito Chapa MD Medicines: Propofol per Anesthesia Complications: No immediate complications. Estimated Blood Loss: Estimated blood loss: none. Procedure: Pre-Anesthesia Assessment: - ASA Grade Assessment: II - A patient with mild systemic disease. After I obtained informed consent, the scope was passed under direct vision. Throughout theprocedure, the patient's blood pressure, pulse, and oxygen saturations were monitored continuously.The Colonoscope was introduced through the anus and advanced to the terminal ileum. The colonoscopy was performed without difficulty. The patient tolerated the procedure well. The quality of the bowel preparation was adequate. Findings: The perianal and digital rectal examinations were normal. The terminal ileum appeared normal. A 4 mm polyp was found in the ascending colon. The polyp was semi-pedunculated. The polyp was removed with a cold snare. Resection and retrieval were complete. A few small-mouthed diverticula were found in the sigmoid colon and descending colon. Internal hemorrhoids were found duringretroflexion. The hemorrhoids were Grade I (internal hemorrhoids that do not prolapse). The exam was otherwise without abnormality. Procedure Code(s): --- Professional --- 28913, Colonoscopy, flexible; with removal of tumor(s), polyp(s), or other lesion(s) by snare technique Diagnosis Code(s): --- Professional --- K64.0, First degree hemorrhoids D12.2, Benign neoplasm of ascending colon R19.5, Other fecal abnormalities CPT copyright 2020 [employer]. All rights reserved. The codes documented in this report are preliminary and upon assistant sales center manager reviewmay be revised to meet current compliance requirements. Yulissa Obrien MD 10/19/2024 9:35:55 AM This report has been signed electronically.Yulissa Obrien MD Number of Addenda: 0 Note Initiated On: 10/19/2024 9:07 AM Scope In: Scope Out: Endoscopy Department at [facility] - [address] [place] [phone] IMPRESSION: - The examined portion of the ileum was normal. - One 4 mm polyp in the ascending colon, removedwith a cold snare. Resected and retrieved. - Diverticulosis in the sigmoid colon and in the descending colon. - Internal hemorrhoids. - The examination was otherwise normal. Recommendation: - Await pathology results. - Repeat colonoscopy is not recommended for surveillance. - Resume Eliquis (apixaban) at prior dose today. Yulissa Obrien MD GI~PROCEDURE ORDERABLES Final Result * Diabetes Foot Exam (01/31/2024) [facility] Diabetes: Annual Foot Exam ABSTRACTED Historical Provider HEALTH MAINTENANCE Final Result * Depression Screening (11/07/2023) [facility] Depression Screening ABSTRACTED [facility] Provider HEALTH MAINTENANCE Final Result * DXA BONE DENSITY STUDY 1+ SITS AXIAL SKEL (11/09/2022 2:12 PM EDT) Anatomical Region Laterality Modality Bone Densitometr y 10/08/2022 2:37 PM EDT Narrative 11/10/2022 6:37 PM EDT Clinical history: other(see comments) Scans of the lumbar spine and hips were performed on a [employer] fan beam bone densitometer. Bone mineral density measurements and associated T and Z scores respectively are as follows: Lumbar Spine: L1-L3 BMD: 1.053 g/cm2 T-Score: 0.3 Z-Score: 2.9 Compared with the prior study dated 02/22/2018, the BMD reading has increased which is statistically significant Left Proximal Femur: Neck BMD: 0.674 g/cm2 T-Score: -1.6 Z-Score: 0.7 Total BMD: 0.935 g/cm2 T-Score: -0.1 Z-Score: 2.0 Compared with the prior study the mean BMD reading in the total left hip has increased which is statistically significant Compared with standards for the young adult, lowest measured bone density places the patient in the W.H.O. osteopenic range. FRAX 10 year probability of major osteoporotic fracture: 13% FRAX 10 year probability of hip fracture: 2.9% Population: [place] () IMPRESSION: IMPRESSION: Osteopenia. The NOF guidelines recommend that FDA approved medical therapies be considered in postmenopausal women and men age >50 years with a: i. Hip or vertebral (clinical or morphometric) fracture ii. T score of < -2.5 at the spine or hip iii. 10 year fracture probability by FRAX of >3% for hip fracture, or >20% for major osteoporotic fracture PLEASE NOTE: W.H.O. classification is based on lowest measured density at the spine, femoral neck, or total hip.This classification has prognostic significance when applied to post menopausal women and older men. 1) The World Health Organization defines low BMD as follows: T-score Normal at or > -1 Osteopenia < -1 and > -2.5 Osteoporosis at or < -2.5 without fractures Established osteoporosis < -2.5 with fractures Procedure Note Brant Kee MD - 07/12/2023 Clinical history: other(see comments) Scans of the lumbar spine and hips were performed on a [employer] 3[employer] beam bone densitometer. Bone mineral density measurements and associated T and Z scoresrespectively are as follows: Lumbar Spine: L1-L3 BMD: 1.053 g/cm2 T-Score: 0.3 Z-Score: 2.9 Compared with the prior study dated 02/22/2018, the BMD reading hasincreased which is statistically significant Left Proximal Femur: Neck BMD: 0.674 g/cm2 T-Score: -1.6 Z-Score: 0.7 Total BMD: 0.935 g/cm2 T-Score: -0.1 Z-Score: 2.0 Compared with the prior study the mean BMD reading in the total left hiphas increased which is statistically significant Compared with standards for the young adult, lowest measured bone densityplaces the patient in the W.H.O. osteopenic range. FRAX 10 year probability of major osteoporotic fracture: 13% FRAX 10 year probability of hip fracture: 2.9% Population: [place] () IMPRESSION: IMPRESSION: Osteopenia. The NOF guidelines recommend that FDA approved medical therapies beconsidered in postmenopausal women and men age >50 years with a: i. Hip or vertebral (clinical or morphometric) fracture ii. T score of < -2.5 at the spine or hip iii. 10 year fracture probability by FRAX of >3% for hip fracture, or >20%for major osteoporotic fracture PLEASE NOTE: W.H.O. classification is based on lowest measured density at the spine,femoral neck, or total hip.This classification has prognostic significance when applied to postmenopausal women and older men. 1) The World Health Organization defines low BMD as follows: T-score Normal at or > -1 Osteopenia < -1 and > -2.5 Osteoporosis at or < -2.5 withoutfractures Established osteoporosis < -2.5 with fractures Pepito Chapa MD IMG DXA PROCEDUR ES Final Result from Last 3 Months or Most Recently Relevant to Health Maintenance Insurance MEDICARE [facility] [place]ICAID [place] Advance Directives * Full Code - Confirmed (Latest Code Status on File) Date Activated Date Inactivated Comments 09/05/2024 12:25 AM 09/05/2024 5:36 PM This code sta tus was ascertained in the following way: Code status discussion: discussion with patient To update the patient's code status, place a code status order. Do not modify or discontinue any currently active code status orders. * Full Code - Default Date Activated Date Inactivated Comments 09/04/2024 10:24 PM 09/05/2024 12:25 AM This is orde r is used when code status has not been discussed with the patient, or code status is otherwise unknown/unconfirmed To update the patient's code status, place a code status order. Do not modify or discontinue any currently active code status orders. * Full Code - Confirmed Date Activated Date Inactivated Comments 08/21/2024 9:10 PM 08/22/2024 6:[address] atus was ascertained in the following way: Code status discussion: discussion with patient To update the patient's code status, place a code status order. Do not modify or discontinue any currently active code status orders. * Full Code - Default Date Activated Date Inactivated Comments 08/21/2024 7:38 PM 08/21/2024 9:10 PM This is orde r is used when code status has not been discussed with the patient, or code status is otherwise unknown/unconfirmed To update the patient's code status, place a code status order. Do not modify or discontinue any currently active code status orders. Care Teams Health Club Manager Relationship Specialty Start Date End Date Pepito Chapa MD [address], [place] PCP - General Internal Medicine 12/28/21
--- OUTSIDE RECORDS SUMMARY | 2025-05-21 17:59 | XMS_ITS ---
Author Name [facility] Organization Unknown Care Team Organization Name Specialty Phone Email Start Date End Da te [facility] JUN JONES [email or web address] 11/12/2022 4 [facility] Termed, PROVIDER Primary Care 04/13/202201/04 4
--- OUTSIDE RECORDS SUMMARY | 2025-05-21 17:59 | XMS_ITS | Encounter Summary ---
Author Organization [employer] Address [address] [facility] [address] [place] [address] Care Team Providers Care Youth Leader Name Role Phone Unavailable Primary Care Provider [...]
--- OUTSIDE RECORDS SUMMARY | 2025-05-21 17:59 | XMS_ITS | Patient Health Record ---
[facility] [place] Address [address] [facility], [place] [address] Care Team Providers Care Cosmetician Apprentice Name Role Phone Pepito Chapa Primary Care Provider Unav Delia Alejo Unavailable [phone] Allergies Allergen (clinical drug ingredient) Drug/Non Drug Allergy documented on EMR Reaction Allergy Type Onset Date Status aspirin Aspirin Heart Dr said do not take Drug Allergy Active Dust Mites Trouble Breathing Allergy A ctive Mold Trouble breathing Allergy Ac tive Results Component Value Reference Range Notes HEMOGLOBIN A1C (GLYCOHEMOGLO BIN) Reviewed date:03/27/2025 01:00:49 PM Interpretation: Performing Lab: Notes/Report: HEMOGLOBIN A1C % (HH) 6.1 Reason For Referral No Information Medications Medication SIG (Take, Route, Frequency, Duration) Notes Start Date End Date Status Ciclopirox Olamine 0.77 % 1 application Externally Twice a day to skin of feet including between the toes; Duration: 30 days Active Eliquis 5 MG Oral; Duration: 30 Days Active Ketoconazole Oral pill Not-Dwight ing Senna Active Fish Oil 1000 MG 1 capsule Orally Once a day; Duration: 30 day(s) Not-Taking Vitamin D Active Acetaminophen 650 MG/20.3ML as directed Orally every 8 hours as needed Not-Taking Tretinoin 0.025 % 1 application in the evening to face Externally Once a day Active Pradaxa 150 MG 1 capsule Orally Twice a day; Duration: 30 day(s) Not-Taking Sotalol HCl 80 MG 1 tablet Orally every 12 hrs; Duration: 30 day(s) Active Gabapentin 300 MG 1 capsule Orally Once a day; Duration: 30 day(s) Not-Taking Refresh Optive Advanced Active Flunisolide 25 MCG/ACT (0.025%) as directed Nasally Not- Taking PARoxetine HCl 10 MG 1 tablet in the morning Orally Once a day; Duration: 30 day(s) Active Citrucel - as directed Orally Not-Taking Lisinopril 5 MG 1 tablet Orally Once a day; Duration: 30 day(s) Active Cephalexin 500 MG 1 capsule Orally every 12 hrs; Duration: 7 day(s) 05/29/2024 Not-Taking Furosemide 40 MG Oral; Duration: 90 Days Active Latanoprost 0.005 % 1 drop into affected eye in the evening Ophthalmic Once a day Active Ketoconazole 2 % 1 application Externally Once a day; Duration: 14 day(s) Active Hydrocortisone 2.5 % 1 application Externally Once a day Active Extra Depth Orthopedic Shoes (1 Pair) with Customized Heat Molded Multidensity Innersoles (3 Pair) Dx: NIDDM/Polyneuropathy (E11.42), Hammertoe Foot Deformity (M20.41,M20.42), Preulcerative Skin Lesion(s) (L85.1); Duration: 365 days 12/26/2024 Active Hydrocort-Pramoxine (Perianal) 2.5-1 % 1 application Externally Three times a day Active Doxepin HCl 10 MG 1 capsule at bedtime Orally Once a day; Duration: 30 day(s) Active diazePAM 5 MG 1 tablet as needed Orally Once a day Active Clotrimazole 1 % 1 application Externally Twice a day; Duration: 14 day(s) Active Redding Saline Nasal Gel - as directed Nasally Active Atorvastatin Calcium 20 MG 1 tablet Orally Once a day; Duration: 30 day(s) Active ACT Fluoride Active Extra Depth Orthopedic Shoes (1 Pair) with Customized Heat Molded Multidensity Innersoles (3 Pair) as directed Dx: NIDDM (E11.9), Hammertoe Foot Deformity (M20.41,M20.42), Preulcerative Skin Lesion(s) (L85.1) 09/06/2023 Active Immunizations Vaccine Route Administration Date Status Comme nts Influenza Unknown 09/06/2023 Refused Influenza Unknown 03/27/2025 Refused Social History Tobacco Use: Social History Observation Description Date Details (start date - stop date) Never Smoker NA - NA Alcohol Screen Question Answer Notes Did you have a drink containing alcohol in the p ast year? No Points 0 Interpretation Negative Tobacco use other than smoking: Question Answer Notes Are you an other tobacco user? No Tobacco Control (Standard) Question Answer Notes Tobacco use: Nonsmoker AUDIT-C (Standard) Question Answer Notes Did you have a drink containing alcohol in the p ast year? 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) Active confirmed Vital Signs Blood pressure diastolic 80 mm Hg 03/27/2025 Height 5 ft 3 in in 03/27/2025 Blood pressure systolic 130 mm Hg 03/27/2025 Weight 186 lbs 03/27/2025 BMI 32.94 kg/m2 03/27/2025 Encounters Encounter Location Date Provider Diagnosis [address] [address] 06/12/2024 Delia Disla Type 2 diabetes mellitus without complication, without long-term current use of insulin E11.9 ; Ingrown nail L60.0 ; Tinea unguium B35.1 ; Pain in right toe(s) M79.674 and Pain in left toe(s) M79.[address] [address] 10/02/2024 Delia Disla Type 2 diabetes mellitus without complication, without long-term current use of insulin E11.9 ; Tinea unguium B35.1 ; Pain in right toe(s) M79.674 and Pain in left toe(s) M79.[address] [address] 12/26/2024 Delia Disla Other hammer toe(s) (acquired), right foot M20.41 ; Other hammer toe(s) (acquired), left foot M20.42 and DM type 2 with diabetic peripheral neuropathy E11.[address] [address] 03/27/2025 Delia Disla DM type 2 with diabetic peripheral neuropathy E11.[address] [place] [address] 05/29/2024 Delia Perica [facility] [address] [place] [address] 06/12/2024 Delia Perica [facility] [address] [place] [address] 07/25/2024 Delia Perica [facility] [address] [place] [address] 08/20/2024 Delia Perica [facility] [address] [place] [address] 05/29/2024 Delia Disla Assessments Encounter Date Diagnosis (ICD Code) Assessment Notes Treatment Notes Treatment Clinical Notes Section Notes 06/12/2024 Ingrown nail (ICD-10 - L60.0) 06/12/2024 Type 2 diabetes mellitus without complication, without long-term current use of insulin (ICD-10 - E11.9) 10/02/2024 Tinea unguium (ICD-10 - B35.1) 10/02/2024 Type 2 diabetes mellitus without complication, without long-term current use of insulin (ICD-10 - E11.9) 12/26/2024 Other hammer toe(s) (acquired), right foot (ICD-10 - M20.41) Patient Educated with: DIABETIC FOOT CARE INSTRUCTIONS.p df (DIABETIC FOOT CARE INSTRUCTIONS.p df) 12/26/2024 Other hammer toe(s) (acquired), left foot (ICD-10 - M20.42) 03/27/2025 DM type 2 with diabetic peripheral neuropathy (ICD-10 - E11.42) 12/26/2024 DM type 2 with diabetic peripheral neuropathy (ICD-10 - E11.42) 10/02/2024 Pain in right toe(s) (ICD-10 - M79.674) 06/12/2024 Tinea unguium (ICD-10 - B35.1) 06/12/2024 Pain in right toe(s) (ICD-10 - M79.674) 10/02/2024 Pain in left toe(s) (ICD-10 - M79.675) 06/12/2024 Pain in left toe(s) (ICD-10 - M79.675) Plan Of Treatment Next Appt Details Provider Name:Delia Mckenna Laura eddi, 07/03/2025 02:00:00 PM, [address] [facility], [place], [address], Insurance Providers Payer Name Payer Address Payer Phone Subscriber Number Group Number Insured Name Patient Relationship to Insured Coverage Start Date Coverage End Date Medicare National Govt [employer] [facility] [address] [place] [address] [id number] Jessenia Pisano Self - patient is the insured [employer] [address] [place] [address] [phone] [id number] Jessenia Pisano Self - patient is the insured Medical (General) History Medical History History ICD Code Anxiety Arthritis Back,Hip,and Knee pain Depression Fibromyalgia Diabetic Measles Mumps Chicken pox Psychiatric disorder osteoarthritis Heart disease Pacemaker Surgical History Surgery Date(Month/Year) cardiac pacemeker Heart Attack Heart Block Cervical discectomy/fusion replace pacemaker battery 08/09/24 colonoscopy Hospitalization History Reason Date(Month/Year) Blockage 08/28
--- OUTSIDE RECORDS SUMMARY | 2025-05-21 17:59 | XMS_ITS | Clinical Summary ---
Author Organization [facility] Address [address] [place] [address] Care Team Providers Care Procurement Professional Logistics Name Role Phone Unavailable Primary Care Provider Unavailabl e Social History Tobacco Use Types Packs/Day Years Used Date Smoking Tobacco: Never Assessed Comments Unknown Sex and Gender Information Value Date Recorded Sex Assigned at Not on file Legal Sex Female 1:22 AM EST Gender Identity Not on file Sexual Orientation Not on file Plan of Treatment Health Maintenance Due Date Last Done Comments Bone Density Screening 1940 HIV Screening 1940 Zoster Vaccines (1 of 2) 1992 COVID-19 Vaccine (2024- season) 2025 01/12/2023, 09/30/2021, 03/13/2021, Additional history exists Influenza Vaccine (#1) 2025 DTaP,Tdap,and Td Vaccines (3 - Td or Tdap) 02/11/2027 02/11/2017, 12/19/2007, 09/16/1997 Pneumococcal Vaccine, 50+ Years Completed 10/06/2016, 09/11/2014, 06/25/1998 HPV Vaccines Aged Out No longer eligi ble based on patient's age to complete this topic Hepatitis A Vaccines Aged Out No long er eligible based on patient's age to complete this topic Meningococcal Vaccine Aged Out No bethanie donnell eligible based on patient's age to complete this topic
--- OUTSIDE RECORDS SUMMARY | 2025-05-21 17:59 | XMS_ITS | Encounter Summary ---
Author Organization [facility] Address [address] [place] [address] Care Team Providers Care Keyboard Operator Name Role Phone Pepito Chapa MD Primary Care Pr ovider Encounter Details Date Type Department Care Team (Late st Contact Info) Description 05/07/2025 Results Follow-Up Adult Medicine [address] [phone] Pepito Chapa MD [address] [place] [address] Social History Tobacco Use Types Packs/Day Years [...] 1:30 PM EDT Office Visit Adult Medicine [address] [phone] Pepito Chapa MD [address], [place] documented as of this encounter Results * (ABNORMAL) Basic metabolic panel (05/21/2025 2:54 PM EST) Sodium 138 133 - 145 mmol/L 05/21/2025 5:[address] [facility] Potassium 4.3 3.5 - 5.5 mmol/L 05/21/2025 5:[address] [facility] Chloride 100 96 - 110 mmol/L 05/21/2025 5:[address] [facility] CO2 27 21 - 32 mmol/L 05/21/2025 5:[address] [facility] Anion Gap 11 3 - 11 05/21/2025 5:[address] [facility] Glucose 78 70 - 100 mg/dL 05/21/2025 5:[address] [facility] BUN 14 5 - 25 mg/dL 05/21/2025 5:[address] [facility] Creatinine 0.97 0.50 - 1.10 mg/dL 05/21/2025 5:[address] [facility] eGFR 58(L) >=60 mL/min/1. 73m2 05/21/2025 5:[address] [facility] Comment:Calculation based on the Chronic Kidney Disease Epidemiology Collaboration (CKD-EPI) equation refit without adjustment for race. BUN/Creatinine Ratio 14.4 05/21/2025 5:51 PM EST [facility] Calcium 9.4 8.5 - 10.5 mg/dL 05/21/2025 5:51 PM EST [facility] Blood Venous blood specimen / Unknown Venipuncture / Unknown 05/21/2025 2:54 PM EST 05/21/2025 2:54 PM EST Pepito Chapa MD LAB BLOOD ORDERA BLES Final Result [facility]) [facility] [address] [place] [address], documented in this encounter Visit Diagnoses Diagnosis Decreased renal function- Primary documented in this encounter Additional Health Concerns Assessment Noted Time PHQ-9 Depression Total Score: 1 05/06/20 25 1:05 PM EST documented as of this encounter Care Teams Keyboard Operator Relationship Specialty Start Date End Date Pepito Chapa MD [address], [place] PCP - General Internal Medicine 12/28/21 documented as of this encounter
--- OUTSIDE RECORDS SUMMARY | 2025-05-21 17:59 | XMS_ITS | Clinical Summary ---
Author Organization [employer] Address [address] [place] [address] Care Team Providers Care Recreation Counselor Name Role Phone Unavailable Primary Care Provider Unavailabl e Allergies Active Allergy Reactions Criticality Noted Date Comments Dust Mite Extract 02/07/2025 Lactose 07/02/2019 Milk (Cow) 08/19/2020 Molds & Smuts 02/07/2025 Penicillins Rash Low 06/27/2006 Medications atorvastatin (Lipitor) [...] MG capsule Take by mouth. Acti ve Acetaminophen 650 MG/20.3ML suspension as directed Orally Active Eliquis 5 MG tablet Take 5 mg by mouth 2 times daily. Active Dilt-XR 180 MG 24 hr capsule Take 1 capsule by mouth Once per day. 5 Active senna-docusate (Lauren-Colace) 8.6-50 MG tablet Take 1 tablet by mouth Once per day. 5 Active Active Problems No known active problems Social History Tobacco Use Types Packs/Day Years [...] Sign Reading Time Taken Comments Blood Pressure 134/78 02/07/2025 1:09 PM EDT Pulse 69 02/07/2025 1:09 PM EDT Temperature - - Respiratory Rate - - Oxygen Saturation - - Inhaled Oxygen Concentration - - Weight - - Height - - Body Mass Index - - Plan of Treatment Health Maintenance Due Date Last Done Comments Depression Screening 1942 Lipid Panel 1942 SDOH Screening 1942 Alcohol/Substance Use Screening 1954 Zoster Vaccines (1 of 2) 1992 RSV Patients and Patients Aged 60 years or older (1 - 1-dose 75+ series) 2017 COVID-19 Vaccine ( season) 2025 07/09/2024, 01/12/2023, 09/30/2021, Additional history exists Influenza Vaccine (#1) 2025 Dental Oral Exam 07/26/2025 01/22/2025, 04/2024, 07/27/2022 Dental Prophylaxis 07/26/2025 01/22/2025, 10/07/2023 Dental X-Ray: Bitewings 01/23/2026 01/23/20, 08/15/2023, 07/27/2022 Tobacco Screening 02/07/2026 02/07/2025 DTaP/Tdap/Td Vaccines (2 - Td or Tdap) 02/11/2027 02/11/2017 Dental X-Ray: Full Mouth 01/24/2028 01/22/2025 Pneumococcal Vaccine: 50+ Years Completed 10/06/2016, 09/11/2014 [...] Procedure Name Priority Date/Time Associated Diagnosis Comments PROPHYLAXIS - ADULT Routine 01/22/2025 2 :00 PM EDT INTRAORAL - COMPLETE SERIES OF RADIOGRAPHIC IMAGES Routine 01/22/2025 2:00 PM EDT PERIODIC ORAL EVALUATION - ESTABLISHED PATIENT Routine 01/22/2025 2:00 PM EDT from Last 3 Months or Most Recently Relevant to Health Maintenance Insurance [place] [id number] DENTAL - HSN FULL (MEDICAID) DENTAL - HSN PARTIAL (MEDICAID) [place]
== END 2025-05-21 14:14 | disposition home or self-care (01) ==
LOC: HO.HCS 13:48
PROVIDERS: PCP Family Medicine; Visit Provider Internal Medicine Cardiovascular Disease
DX: I48.0 Paroxysmal atrial fibrillation (principal); I50.30 Unspecified diastolic (congestive) heart failure; Z95.0 Presence of cardiac pacemaker
CPT/HCPCS: 93010; 93280; 99214

== ENCOUNTER → 2025-05-21 13:48 | Outpatient (BNVA) | payer MEDICARE, OTHER, SELFPAY | PROVIDERS: PCP Family Medicine; Visit Provider Internal Medicine Cardiovascular Disease | DX: I48.0 Paroxysmal atrial fibrillation (principal); I11.0 Hypertensive heart disease with heart failure; I50.30 Unspecified diastolic (congestive) heart failure; I49.8 Other specified cardiac arrhythmias; Z95.0 Presence of cardiac pacemaker | CPT/HCPCS: 93005; 93280; 99212 ==

== ENCOUNTER → 2025-05-22 15:01 | Outpatient (BNV) | payer MEDICARE, SELFPAY | PROVIDERS: PCP Family Medicine; Visit Provider Internal Medicine Cardiovascular Disease | DX: Z45.018 Encounter for adjustment and management of other part of cardiac pacemaker (principal) | CPT/HCPCS: 93294 ==